=== PATIENT | male | born 1925 | race Caucasian/White ===

== ENCOUNTER 2017-01-06 12:43 | Inpatient (IN) | payer OTHER ==
--- NOTE | 2017-01-06 13:32 | PDOC ---
History of Present Illness - General Chief Complaint: Altered Mental Status Stated Complaint: AMS Time Seen by Provider: 01/06/17 13:28 - History of Present Illness Initial Comments: 01/06/17 13:29 Mr. Schaefer is an 89 yo male with a significant past medical history of afib on coumadin, pacemaker, DM who presents to the emergency department with a decline over the last month and a half from able to walk with a walker and baseline respond to unable to ambulate with cognitive disorientation. Daughter visited this AM and called PCP on noticing decline and was recommended to come in. Allergies: NKDA Past surgical history: hip replacement and pacemaker placement PMD - Paolo Card 01/06/17 17:40 Past History - Past Medical History Allergies/Adverse Reactions: Allergies Allergy/AdvReac Type Severity Reaction Status Date / Time No Known Allergies Allergy Verified 01/06/17 13:11 Home Medications: Ambulatory Orders Insulin NPH Hum/Reg Insulin Hm [Humulin 70-30 Vial] 26 unit SQ AM 04/09/12 Insulin NPH Hum/Reg Insulin Hm [Humulin 70-30 Vial] 20 unit SQ HS 05/12/12 Atorvastatin Calcium 10 mg PO HS 01/06/17 Glipizide [Glipizide Xl] 5 mg PO DAILY 01/06/17 Metoprolol Succinate [Toprol Xl -] 25 mg PO DAILY 01/06/17 Warfarin Na [Coumadin] 4 mg PO ASDIR 01/06/17 Warfarin Na [Coumadin] 6 mg PO ASDIR 01/06/17 Cardiac Disorders: Yes (A.FIB) Diabetes: Yes (IDDM) HTN: Yes Hypercholesterolemia: Yes Suicide Attempt (Hx): No - Surgical History Cardiac Surgery: Yes (pacemaker) Cholecystectomy: Yes - Psycho/Social/Smoking Cessation Hx Anxiety: No Suicidal Ideation: No Smoking Status: Yes Smoking History: Former smoker Have you smoked in the past 12 months: No Number of Cigarettes Smoked Daily: 0 Information on smoking cessation initiated: No Hx Alcohol Use: No Drug/Substance Use Hx: No Substance Use Type: None Hx Substance Use Treatment: No Review of Systems - Review of Systems Comments:: ROS limited by patient status. Per family cognitive function has declined severely. *Physical Exam - Vital Signs Last Vital Signs Temp Pulse Resp BP Pulse Ox 98.7 F 71 18 142/79 96 01/06/17 13:00 01/06/17 13:00 01/06/17 13:00 01/06/17 13:00 01/06/17 13:00 - Physical Exam Comments: 01/06/17 13:29 GENERAL: +Awake, oriented to self only, in no acute distress HEAD: No signs of trauma, normocephalic, atraumatic EYES: PERRLA, EOMI, sclera anicteric, conjunctiva clear ENT: Auricles normal inspection, hearing grossly normal, nares patent, oropharynx clear without exudates. Moist mucosa NECK: Normal ROM, supple, no lymphadenopathy, JVD, or masses LUNGS: No distress, speaks full sentences, clear to auscultation bilaterally HEART: Regular rate and rhythm, normal S1 and S2, no murmurs, rubs or gallops, peripheral pulses normal and equal bilaterally. ABDOMEN: Soft, nontender, normoactive bowel sounds. No guarding, no rebound. No masses EXTREMITIES: Normal inspection, Normal range of motion, no edema. No clubbing or cyanosis. NEUROLOGICAL: Limited by cooperation. Cranial nerves 2-12 appear intact. SKIN: Warm, Dry, normal turgor, no rashes or lesions noted. 01/06/17 17:42 ED Treatment Course - LABORATORY CBC & Chemistry Diagram: 01/06/17 14:00 01/06/17 14:00 Medical Decision Making - Medical Decision Making 01/06/17 16:53 Mr. Schaefer presents with worsening mental status. INR/PTT elevated as below. Acute bleed noted on CT in lateral ventricles. Neurosurgery consulted. Dr. Jones (neurosurgery) would like ICU follow-up. Dr. Bermeo ok with accepting patient in [facility] ICU. Will admit under Dr. Card. Laboratory Results - last 24 hr 01/06/17 01/06/17 01/06/17 14:00 14:00 14:50 WBC 8.1 RBC 5.49 Hgb 17.1 H D Hct 50.4 H MCV 91.8 MCH 31.2 MCHC 33.9 RDW 14.2 Plt Count 161 D MPV 10.8 Neutrophils % 63.0 D Lymphocytes % 23.4 D Monocytes % 11.3 H Eosinophils % 1.8 Basophils % 0.5 INR 2.67 H D PTT (Actin FS) 36.2 H Sodium 139 Potassium 4.5 Chloride 101 Carbon Dioxide 32 Anion Gap 6 L BUN 14 Creatinine 0.7 Creat Clearance w eGFR > 60 Random Glucose 200 H Calcium 9.0 Total Bilirubin 0.6 D AST 67 H D ALT 131 H D Alkaline Phosphatase 70 Creatine Kinase 97 Troponin I 0.02 B-Natriuretic Peptide 290.88 Total Protein 7.3 Albumin 3.4 Urine Color Urine Appearance Urine pH Urine Protein Urine Glucose (UA) Urine Ketones Urine Blood Urine Nitrite Urine Bilirubin Urine Urobilinogen Ur Leukocyte Esterase 01/06/17 15:00 WBC RBC Hgb Hct MCV MCH MCHC RDW Plt Count MPV Neutrophils % Lymphocytes % Monocytes % Eosinophils % Basophils % INR PTT (Actin FS) Sodium Potassium Chloride Carbon Dioxide Anion Gap BUN Creatinine Creat Clearance w eGFR Random Glucose Calcium Total Bilirubin AST ALT Alkaline Phosphatase Creatine Kinase Troponin I B-Natriuretic Peptide Total Protein Albumin Urine Color Yellow Urine Appearance Slcloudy Urine pH 5.0 Urine Protein Negative Urine Glucose (UA) 2+ H Urine Ketones Negative Urine Blood 1+ H Urine Nitrite Negative Urine Bilirubin Negative Urine Urobilinogen Negative Ur Leukocyte Esterase Negative 01/06/17 17:00 01/06/17 17:46 01/06/17 17:51 *DC/Admit/Observation/Transfer Diagnosis at time of Disposition: Brain bleed - Discharge Dispostion Admit: Yes - Referrals Referrals: Paolo Card MD [Primary Care Provider] - - Attestations Physician Attestion: 01/06/17 13:29 I, Dr. Jose Luis Madrigal, attest that this document has been prepared under my direction and personally reviewed by me in its entirety. I further attest, that it accurately reflects all work, treatment, procedures and medical decision -making performed by me.
[2017-01-06 15:07] LABS: BASOPHIL 0.5 % (0-2.0); EOSINOPHIL 1.8 % (0-4.5); MCH 31.2 pg (25.7-33.7); MCHC 33.9 g/dl (32.0-35.9); MEAN CELL VOLUME 91.8 fl (80-96); MEAN PLT VOLUME 10.8 fl (7.5-11.1); PLATELET COUNT 161 K/MM3 (134-434); RDW 14.2 % (11.9-15.9); WHITE BLOOD COUNT 8.1 K/mm3 (4.0-10.0)
[2017-01-06 15:12] LABS: ALBUMIN 3.4 g/dl (3.4-5.0); ANION GAP 6 (8-16); BILIRUBIN,TOTAL 0.6 mg/dL (0.2-1.0); CO2 32 mmol/L (21-32); CREATININE 0.7 mg/dL (0.7-1.3); GLUCOSE,RANDOM 200 mg/dL (74-106); SGPT/ALT 131 U/L (12-78); TOT PROT 7.3 g/dl (6.4-8.2)
[2017-01-06 15:15] LABS: ALK PHOS 70 U/L (45-117); TROPONIN I 0.02 ng/ml (0.00-0.05)
[2017-01-06 15:23] LABS: CPK 97 IU/L (39-308); SGOT/AST 67 U/L (15-37)
[2017-01-06 15:50] LABS: URINE APPEARANCE SLCLOUDY; URINE BILIRUBIN NEGATIVE (NEGATIVE); URINE BLOOD 1+ (NEGATIVE); URINE COLOR YELLOW; URINE GLUCOSE (UA) 2+ (NEGATIVE); URINE KETONE NEGATIVE (NEGATIVE); URINE LEUK ESTERASE NEGATIVE (NEGATIVE); URINE NITRITE NEGATIVE (NEGATIVE); URINE PROTEIN NEGATIVE (NEGATIVE); URINE UROBILINOGEN NEGATIVE mg/dL (0.2-1.0)
[2017-01-06 16:22] LABS: INR 2.67 (0.82-1.09)
[2017-01-06 16:25] LABS: ACTIVATED PTT 36.2 SECONDS (26.9-34.4)
[2017-01-06] MEDS ORDERED: PHYTONADIONE 10 MG/1 ML AMP IVPB ONE (16:51)
[2017-01-06 17:19] LABS: URINE HYALINE CAST 2 /lpf; URINE MUCUS MANY; URINE RBC 2 /hpf (0-3); URINE WBC 2 /hpf (3-5)
--- NOTE | 2017-01-06 17:24 | PDOC ---
Attending Attestation - Resident Resident Name: Jose Luis Madrigal - ED Attending Attestation I have performed the following: I have examined & evaluated the patient, The case was reviewed & discussed with the resident, I agree w/resident's findings & plan, Exceptions are as noted - HPI HPI: 01/06/17 17:19 89 M with h/o afib on coumadin, PPM, DM, HTN, HLD, presenting to ER with 1 month of worsening lethargy and confusion. Per family members, he is typically able to ambulate unassisted, is verbal and communicative. Over the past month, he has had a gradual decline, becoming more confused and now no longer able to ambulate. Today, pt had acute decline, becoming more disoriented and confused, no longer communicating. Family denies any F/C, no N/V/D. Pt has not complained of pain. Has not had any falls. - Physicial Exam PE: 01/06/17 17:38 "GENERAL: somnolent, arousable only to painful stimuli, in no acute distress HEAD: No signs of trauma EYES: PERRLA, EOMI, sclera anicteric, conjunctiva clear ENT: Auricles normal inspection, hearing grossly normal, nares patent, oropharynx clear without exudates. Moist mucosa NECK: Normal ROM, supple, no lymphadenopathy, JVD, or masses LUNGS: Breath sounds equal, clear to auscultation bilaterally. No wheezes, and no crackles HEART: Regular rate and rhythm, normal S1 and S2, no murmurs, rubs or gallops ABDOMEN: Soft, nontender, normoactive bowel sounds. No guarding, no rebound. No masses EXTREMITIES: Normal range of motion, no edema. No clubbing or cyanosis. No cords, erythema, or tenderness NEUROLOGICAL: Cranial nerves II through XII grossly intact. Moves all extremities SKIN: Warm, Dry, normal turgor, no rashes or lesions noted. " - Medical Decision Making 01/06/17 17:38 89 M with 1 month of progressively worsening mental status and confusion. Will evaluate for infectious process vs intracranial pathology. - Labs, trops, cultures - CXR, UA - CTH - Admit 01/06/17 17:39 CTH shows acute intraventricular blood and more prominent ventricles. Neurosurgeon subscription crew leader, Dr. Leo Cook, reviewed case with me. He recommends admission to ICU for close monitoring and neurosurgical intervention if needed. Discussed case with Dr. Polk, ICU attending subscription crew leader, who has accepted pt. <Julio C Gould - Last Filed: 01/06/17 17:36> - Medical Decision Making 01/06/17 17:30 Dr. Cadena (Neurosurgery subscription crew leader) paged via phone answering service at 4:50 PM Awaiting call back. Dr. Cadena responded to the page and the patient's case was discussed at 5:[address] Cadena called and planned to admit patient to [facility] ICU. Call placed to Dr. Polk at 5:29 PM Awaiting call back. Dr. Polk responded to the page and the patient's case was discussed at 5:[address] Card via phone answering service at 5:52 PM Patient's case was discussed. Documentation prepared by Arielle Swann, acting as medical services coordinator for Julio C Gould MD <Arielle Swann - Last Filed: 01/06/17 17:53>
[2017-01-06] MEDS ORDERED: PHYTONADIONE 10 MG/1 ML AMP ONE (17:32)
--- NOTE | 2017-01-06 18:50 | EKG ---
Test Reason : Blood Pressure : / mmHG Vent. Rate : 072 BPM Atrial Rate : 072 BPM P-R Int : 204 ms QRS Dur : 144 ms QT Int : 452 ms P-R-T Axes : 072 -80 092 degrees QTc Int : 494 ms Atrial-sensed ventricular-paced rhythm ABNORMAL ECG WHEN COMPARED WITH ECG OF 14-AUG-2012 10:23, VENT. RATE HAS INCREASED BY 10 BPM Confirmed by AEC BOYKIN MD ([id number]) on 01/06/2017 6:50:17 PM Referred By: Confirmed By:ACE BOYKIN MD
--- NOTE | 2017-01-06 21:35 | CON.NEURO ---
Consult Consult Specialty:: NEUROLOGY-WINSOME SCHMITT Reason for Consultation:: Intraventricular hemorrhage - History of Present Illness History of Present Illness: 89 M with h/o afib on coumadin, PPM, DM, HTN, HLD, presenting to ER with 1 month of worsening lethargy and confusion. Per family members(daughter and son) his last INR was performed 7 weeks ago, x 2 years at least he has had gradual cognitive decline, several weeks ago he fell(not taken to ER and for last 2 weeks he has had a rapid decline in his mentation- becomes confused, he was able to ambulate with a walker, was verbal and communicative until 2 weeks ago.Family denies any F/C, no N/V/D. Pt has not complained of pain. Has not had any falls. INR noted to be 2.6, pt. has been given Vit K and is now being given FFP. He is unable to relate hx. as he is, as per daughter somnolent. - History Source History Provided By: Family Member - Past Medical History MASSEUR/MASSEUSE: Yes: Dementia - Alcohol/Substance Use Hx Alcohol Use: No - Smoking History Smoking history: Former smoker Have you smoked in the past 12 months: No Aproximately how many cigarettes per day: 0 Home Medications - Allergies Allergies/Adverse Reactions: Allergies Allergy/AdvReac Type Severity Reaction Status Date / Time No Known Allergies Allergy Verified 01/06/17 13:11 - Home Medications Home Medications: Ambulatory Orders Insulin NPH Hum/Reg Insulin Hm [Humulin 70-30 Vial] 26 unit SQ AM 04/09/12 Insulin NPH Hum/Reg Insulin Hm [Humulin 70-30 Vial] 20 unit SQ HS 05/12/12 Atorvastatin Calcium 10 mg PO HS 01/06/17 Glipizide [Glipizide Xl] 5 mg PO DAILY 01/06/17 Metoprolol Succinate [Toprol Xl -] 25 mg PO DAILY 01/06/17 Warfarin Na [Coumadin] 4 mg PO ASDIR 01/06/17 Warfarin Na [Coumadin] 6 mg PO ASDIR 01/06/17 Physical Exam-Neuro Vital Signs: Vital Signs Temperature 97.7 F 01/06/17 20:09 Pulse Rate 73 01/06/17 20:09 Respiratory Rate 17 01/06/17 20:09 Blood Pressure 121/84 01/06/17 17:23 O2 Sat by Pulse Oximetry (%) 97 01/06/17 20:09 Labs: INR, PTT INR 2.67 (0.82-1.09) H D 01/06/17 14:50 - Neuro Exam Level Of Consciousness: No: Stuporous (Pt. is somnolent, easily arousable to loud voice, follows one step commands but unable to sustain attention.) Eyes: Yes: ALVARO Speech: Garbled (Unclear whether dysphasic or not) Mini Mental Exam: Inattentive, somnolent. Cranial Nerves II-XII Intact: Yes (face symmetric, intact facial sensation+gag) Gag: Present DTR's: 0 Left Achilles, 0 Right Achilles, 1+ Left Bicep, 1+ Right Bicep, 1+ Left Tricep, 1+ Right Tricep, 1+ Left Brachioradialis, 1+ Right Brachioradialis Babinski: Present (right upgoing toe, left is down going) Response to pain prick: Normal (With draws UEs more than lower ext. to pain) Imaging - Results X-ray: Report Reviewed (Chronic microvascular ischemic changes, old left cerebellar infarct and small amount of blood in post. horns of both occipoital horns. To my review ventricles appear larger than what can be accounted for by the amount of atrophy seen.) Assessment/Plan Pt. on A/C, INR of 2.6 presenting with worsened mentation for at least 2 weeks, has intraventricular hemorrhage layered in post. horns of lat. ventricles without evidence of in. The hge does not appear to be causing increased intraventricular pressure as the vents. are large to start with. My sense is likely cause of worsening confusion/mental status deterioration is possibly intravent. hemorrhage. There is also a possibility that he has preexisting hydrocephalus as vents. appear larger compared to CT head in 2013. 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 Suggest: 1) FFP as planned. would kep HOB at 30 degrees. NPO, I/V hydration. 2) Repeat CT head at [facility] tomorrow to see whether there are signs of CSF drainage obstruction/hydrocephalus. 3) Monitor mental status. 4) I do not see indication for neurosurgical intervention. Thank you, Stan Mackenzie [phone]
[2017-01-06 21:51] VITALS: BMI 29.3
[2017-01-06] MEDS ORDERED: PNEUMOC 13-VAL CONJ-DIP CRM/PF 0.5 ML DISP.SYRIN IM ONE (21:51)
--- NOTE | 2017-01-06 22:09 | CONSULT ---
Consult - text type - Consultation Consultation Note: PULM/CCM Pt seen and examined in the ICU CC; AMS Hx obtained from medical record., pt significantly altered. HPI: Briefly Mr Olive is an 89 M with h/o afib on coumadin, PPM, DM, HTN, HLD , ? dementia now presenting to ER with 1 month of worsening lethargy and confusion found to have intraventricular hemorrhage on CT. Family relates pt has had slow cognitive decline over last two years but precipitously over last two weeks. Pt had fall several weeks ago, did not seek treatment. Worse in following weeks, over last two weeks stopped communicating with family and no longer walking. Last INR was performed 7 weeks ago, Family denies any acute complaints from patient, no Recent falls, no n/v/d, no fever. In ED pt was afebrile, normotensive, HR and RR wnl. Labs notable for INR 2.6. CT head revealed significant atrophy, and acute blood in ventricles. Neurolgoy and neurosurgery contacted, transfered pt to ICU. 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 Previously walking with walker and communicating Ambulatory Orders Insulin NPH Hum/Reg Insulin Hm [Humulin 70-30 Vial] 26 unit SQ AM 04/09/12 Insulin NPH Hum/Reg Insulin Hm [Humulin 70-30 Vial] 20 unit SQ HS 05/12/12 Atorvastatin Calcium 10 mg PO HS 01/06/17 Glipizide [Glipizide Xl] 5 mg PO DAILY 01/06/17 Metoprolol Succinate [Toprol Xl -] 25 mg PO DAILY 01/06/17 Warfarin Na [Coumadin] 4 mg PO ASDIR 01/06/17 Warfarin Na [Coumadin] 6 mg PO ASDIR 01/06/17 Active Medications Chlorhexidine Gluconate (Hibiclens For Decolonization -) 1 applic TP HS PAULINA Mupirocin (Bactroban Ointment (For Decolonization) -) 1 applic NS BID PAULINA Stop: 01/11/17 21:59 Pneumococcal 13-Valent Conj Vacc (Prevnar 13 Syringe -) 0.5 ml IM .ONCE ONE Stop: 01/06/17 21:52 Vital Signs Temp 98.2 F 01/06/17 22:05 Pulse 63 01/06/17 22:05 Resp 11 L 08/28/17 22:05 BP 146/62 01/06/17 22:05 Pulse Ox 94 L 01/06/17 21:33 Intake & Output 01/05/17 01/06/17 01/06/17 23:59 11:59 23:59 Weight 77.5 kg Other: Voiding Method Diaper Height 5 ft 4 in Body Mass Index (BMI) 29.3 Weight Measurement Method [facility] Measurement Method Estimated by Staff CT head reviewed CXR: clear, no acute pathology EKG: Paced at 60bpm PE: NEURO: stuporous, opens eyes to noxious stimuli, does not attend, non focal exam , withdrawal bilaterally HEENT: PERRL at 3mm, atraumatic, normocephalic PULM: clear, no wheezes, no distress CV: regular at 60, do not appreciate mumur ABD: Soft, +BS EXT: pulse wnl A/ 89 yo old man with acute on chronic cognitive decline found to have intraventricular hemorrhage, possibly normal pressure hydrocephalus -correct INR, Vit K given, FFP ordered -NPO -repeat INR and CT head tomorrow -will need oral access as appears high risk for aspiration, and will need to restart home meds -overnight observation in ICU -neuro/surg following - Prophy: SCD, no indication for GI Sahil Patel ACNp [id number]
[2017-01-06] MEDS: MUPIROCIN 2% TOPICAL OINTMENT FOR DECOLONIZATION NS SCH (22:21)
[2017-01-06] MEDS: CHLORHEXIDINE GLUCONATE 4% CLEANSER FOR DECOLONIZATION TP SCH (22:21)
[2017-01-07] MEDS: DEXTROSE 5%-0.45% SALINE 1,000 ML IV SCH ×2 (04:00→15:00)
[2017-01-07] MEDS: INSULIN SLIDING SCALE (NOVOLOG) 1 VIAL SQ SCH ×3 (06:45→18:00)
[2017-01-07 07:08] LABS: INR 1.5 (0.82-1.09); PROTHROMBIN TIME (PATIENT) 16.6 SEC (9.98-11.88)
[2017-01-07 07:25] LABS: MAGNESIUM 2.1 mg/dL (1.8-2.4); PHOSPHOROUS 2.7 mg/dL (2.5-4.9)
[2017-01-07] MEDS: MUPIROCIN 2% TOPICAL OINTMENT FOR DECOLONIZATION NS SCH ×2 (11:00→22:38)
--- NOTE | 2017-01-07 12:33 | PN ---
Teaching Attending Note Name of Resident: Chava Maradiaga ATTENDING PHYSICIAN STATEMENT I saw and evaluated the patient. I reviewed the resident's note and discussed the case with the resident. I agree with the resident's findings and plan as documented. SUBJECTIVE: Pt seen and examined in the ICU. Lethargic, repeat CT head unchanged from yesterday. OBJECTIVE: Last Vital Signs Temp Pulse Resp BP Pulse Ox 98.7 F 67 16 150/56 97 01/07/17 10:34 01/07/17 10:34 01/07/17 10:34 01/07/17 10:34 01/07/17 03:07 Intake & Output 01/04/17 01/05/17 01/06/17 01/07/17 23:59 23:59 23:59 23:59 Intake Total 372 Balance 372 Weight 170 lb 13.732 oz 173 lb 3.2 oz Gen: lethargic but in NAD Heart: RRR Lung: decreased breath sounds at the bases Abd: soft, nontender Ext: no edema CBC, BMP 01/06/17 14:00 01/06/17 14:00 Active Medications Chlorhexidine Gluconate (Hibiclens For Decolonization -) 1 applic TP HS [facility] Last Admin: 01/06/17 22:21 Dose: 1 applic Dextrose/Sodium Chloride (D5-1/2ns -) 1,000 mls @ 75 mls/hr IV ASDIR [facility] Last Admin: 01/07/17 04:00 Dose: 75 mls/hr Insulin Aspart (Novolog Vial Sliding Scale -) 1 vial SQ Q6HPO [facility] PRN Reason: Protocol Last Admin: 01/07/17 06:45 Dose: Not Given Mupirocin (Bactroban Ointment (For Decolonization) -) 1 applic NS BID [facility] Stop: 01/11/17 21:59 Last Admin: 01/06/17 22:21 Dose: 1 applic ASSESSMENT AND PLAN: Intracranial Hemorrhage Hydrocephalus Altered Mental Status Atrial Fibrillation s/p PPM HTN DM Hyperlipidemia - transfuse 1 unit FFP - monitor CBC, coags - neurosurgery evaluation - aspiration precautions - NPO due to mental status - IVF - DVT prophylaxis with SCDs - can monitor on floor if no surgical intervention planned critical care time spent in reviewing chart, evaluating patient and formulating plan 35 min
--- NOTE | 2017-01-07 12:41 | PN ---
Physical Exam: SUBJECTIVE: Patient seen and examined. Minimally responsive to pain OBJECTIVE: Vital Signs Period Temp Pulse Resp BP Sys/Stern Pulse Ox Last 24 Hr 97.7 F-98.8 F 60-73 11-17 113-153/51-74 94-97 NEURO: minimally responsive to pain, opens eyes HEENT: PERRL at 3mm, atraumatic, normocephalic PULM: clear, no wheezes, no distress CV: RRR, S1 and S2 audible ABD: Soft, non-tender, +BS EXT: pulse wnl Laboratory Results - last 24 hr 01/06/17 01/06/17 01/07/17 18:00 22:24 05:30 INR 1.50 H D POC Glucometer 181.48669 Phosphorus Magnesium Blood Type A POSITIVE Antibody Screen Negative 01/07/17 01/07/17 05:30 06:43 INR POC Glucometer 183.62965 Phosphorus 2.7 D Magnesium 2.1 Blood Type Antibody Screen Active Medications Generic Name Dose Route Start Last Admin Trade Name Freq PRN Reason Stop Dose Admin Chlorhexidine Gluconate 1 applic 01/06/17 22:00 01/06/17 22:21 Hibiclens For Decolonization - TP 1 applic HS PAULINA Administration Dextrose/Sodium Chloride 1,000 mls @ 75 mls/hr 01/07/17 02:30 01/07/17 04:00 D5-1/2ns - IV 75 mls/hr ASDIR PAULINA Administration Insulin Aspart 1 vial 01/07/17 06:00 01/07/17 06:45 Novolog Vial Sliding Scale - SQ Not Given Q6HPO [facility] Protocol Mupirocin 1 applic 01/06/17 22:00 01/06/17 22:21 Bactroban Ointment (For Decolonization) - NS 01/11/17 21:59 1 applic BID PAULINA Administration ASSESSMENT/PLAN: A/ 89 yo old man with acute on chronic cognitive decline found to have intraventricular hemorrhage, possibly normal pressure hydrocephalus Neuro: - Neurosurgical consult pending. Possible surgical treatment. -NPO Hematology - One unit of FFP ordered - Monitor CBC and coags - Aspiration precaution Cardiovascular - IVF: NS Prophy: - DVT prophylaxis with SCDs can monitor on floor if no surgical intervention planned Visit type - Emergency Visit Emergency Visit: No - New Patient This patient is new to me today: Yes Date on this admission: 01/07/17 - Critical Care Critical Care patient: Yes Total Critical Care Time (in minutes): 30 Critical Care Statement: The care of this patient involved high complexity decision making to prevent further life threatening deterioration of the patient 's condition and/or to evaluate & treat vital organ system(s) failure or risk of failure.
--- NOTE | 2017-01-07 12:45 | CONSULT ---
Admitting History and Physical - Primary Care Physician PCP: Paolo Card - Admission History of Present Illness: 89 yo old man with acute on chronic cognitive decline found to have intraventricular hemorrhage, possibly normal pressure hydrocephalus Per Neurology: "Chronic microvascular ischemic changes, old left cerebellar infarct and small amount of blood in post. horns of both occipital horns.....ventricles appear larger than what can be accounted for by the amount of atrophy seen" Pt's daughter reports progressive confusion and memory deficits, with initiation of impairment in speech/language function for about 2 months. Swallowing and appetite were always good. Pt keeps eyes closed as he is visually impaired,per daughter. 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 - Smoking History Smoking history: Former smoker Have you smoked in the past 12 months: No Aproximately how many cigarettes per day: 0 - Alcohol/Substance Use Hx Alcohol Use: No History - Admission Reason For Visit: BRAIN BLEED - Diagnostics X-ray: Report Reviewed CT Scan: Report Reviewed - General Mental Status: Confused Attention: Distractible Ability to Follow Directions: Poor Head/Neck Control: Needs Assist - Hearing Hearing: Functional, Impaired Hearing Aide: No With Patient: No Speech Evaluation - Communication Primary Language: [place] Communication: Yes: Aphasia (Aphasia vs languiage of confusion. Unintelligible words interspresed in simple phrases), Language Barrier Oral Expression Ability: Yes: Moderate Impairment - Speech Production Able to Make Needs Known: Yes: Moderately Impaired Intelligibility: Yes: Mildly Impaired, Moderately Impaired - Speech Characteristics Voice Loudness: Normal Voice Pitch: Yes: Normal Voice Phonatory-based Quality: Yes: Normal Speech Pattern: Impaired Speech Clarity: < 25% Nasal Resonance: Normal - Language/Auditory Comprehension Observation: Able to respond to yes/no queries: No, Comprehends Conversational Speech: Yes (some simple appropriat responses regarding food and hunger), Benefits from Slow Speech: Yes, Benefits from Repetiton: Yes, Benefits from Increased Volume of Speech: Yes - Language/Verbal Expression Aphasia: Yes: Paraphrasic Errors, Neologisms Able to Respond to Simple Queries: Yes: Moderately Impaired - Swallow Evaluation/Bedside Assessment Current Nutritional Intake: NPO Oral Secretions: Yes: WFL Dentition: Yes: Dental Appliance Upper, Dental Appliance Lower Facial Symmetry at Rest: Symmetrical Lingual Movement: Symmetric Lingual Speed of Movement: Normal Lingual Movement Strgth Against Opposition: Normal Lingual Movement Characteristics: Normal Velopharyngeal Movement: Normal Laryngeal Movement: Labored,delay initiation Rate of Intake: WFL Bolus Size: WFL Labial Seal: WFL (uses dentures, not lips, to strip spoon of food) Oral Prep Time: WFL A-P Transit: WFL Pocketing: None Timing of Swallow: Delayed Coughing/Throat Clear: No Change in Voice: No Recommendations - Speech Evaluation, Impression/Plan Impression: Overtly, delayed but fair swallowing function. Ris of aspiration with thin liquids due to delayed swallow onset at this time, which may improve. Produces some social speech/verbalizations with some appropriate phrases interspersed with jargon. Eg "i had enough" "dinner" etc - Dysphagia Impressions/Plan Swallowing Skills: Impaired Dysphagia Impressions: Moderate Impairment, Risk of Aspiration, Ongoing Evaluation *Silent aspiration: cannot be R/O at bedside Dysphagia Treatment Plan: Chin Tuck/Down, Safe Rate, 1/2 tsp. at a time, Elevate HOB during feed, Other (feed slowly, observe for sallow reflex before next bite.) Recommendations: Modified Barium Swallow (to r/o aspiration, advance diet wit safety), Other - Recommendations Diet Consistency: Dysphagia Pureed, Other (monitor for congestion, fever, cough, throat clearing, vocal wetness.) Medication Administration: Crushed with applesauce Liquids: Honey Thick Supplement: Magic Cup
[2017-01-07] MEDS ORDERED: INSULIN (NOVOLOG) ASPART 100 UNITS/ML 10ML VIAL ONE ×2 (13:08→17:27)
--- NOTE | 2017-01-07 13:16 | CONSULT ---
Consult - text type - Consultation Consultation Note: Asked to see this 89 year old gentleman with altered mental status. Patient is lethargic and family was not immediately available. Primary information is from the medical record, review of the imaging studies and discussion with the nursing/ER staff. My understanding is that this patient has had cognitive decline over the past two years with difficulty in ambulation requiring a walker. He has atrial fibrilation and a pacemaker and maintained on Coumadin anticoagulation therapy. 1-2 months ago, he sustained a minor head injury and has had progressive cognitive decline since this time.
--- NOTE | 2017-01-07 13:43 | CONSULT ---
Consult - text type - Consultation Consultation Note: Asked to see this 89 year old gentleman with altered mental status. Patient has a history of atrial fibrillation and is maintained on Coumadin therapy and has a pacemaker. He is lethargic and his family was not available. Primary information for this consultation is from the medical record, nursing staff and ER physician. The patient has a history of cognitive decline over the past 2 years as well as gait difficulty requiring the use of a walker. He has no known urinary difficulties (incontinence). He suffered a minor head injury 1-2 months ago and did not seek medical attention. Since this time, his cognitive decline has significantly progressed. He presented to the [facility] Emergency Room yesterday and Head CT demonstrated ventriculomegally with some atrophy and acute intraventricular blood layering in the occipital horns of the lateral ventricles. The patient was admitted to the ICU and his anticoagulation is being reversed. Today, the patient is more somnolent than at admission. Repeat Head CT suggests mild progression of the hydrocephalus. Although the fourth ventricle is enlarged , it is not quite as large as the lateral and third ventricles raising the possibility of aqueductal stenosis or obstruction. MRI is not possible due to his pacemaker. There is some low density tissue surrounding the ventricles, however it is not clear whethere this is secondary to trans-ependymal edema versus due to vascular disease. Review of CT of the Head from 2012 and 2010 suggest progressive hydrocephalus/ ventriculomegally with enlargement of the temporal horns. It does not appear possible to make a definitive diagnosis of Normal Pressure Hydrocephalus, obstructive hydrocephalus or communicating hydrocephalus at this time. Indeed, this patient has elements of all three conditions and this may be a multifactorial process. CSF diversion with EVD or SPECIAL EDUCATION ASSOCIATE shunting may be considered, but carries an elevated risk of infection and subdural hematoma development due to this patient 's medical state and need for anticoagulation. I agree with Dr. Mackenzie that if it is possible to identify an alternate etiology for his cognitive decline and to correct his recent decline without Neurosurgical intervention, that it might be preferable for this patient. If no other etiology for the cognitive decline can be identified or treated, CSF diversion may have a role. One of the primary risks would be the risk for thromboembolic events associated with cessation of his anticoagulatio. On the other hand, since his coagulation profile has been reversed, this is not currently an additional risk for surgery. SPECIAL EDUCATION ASSOCIATE shunting with an adjustable pressure valve set to a high pressure setting might be considered if the cognitive decline cannot be otherwise reversed. I am happy to discuss this case further with other caregivers or his family in the event that no other treatment strategy for the cognitive decline is effective.
--- NOTE | 2017-01-07 16:01 | HP ---
Admitting History and Physical - Primary Care Physician PCP: Paolo Card - Admission Chief Complaint: Change in mental status History of Present Illness: 89 y/o diabetic on Insulin, AFIB, PPM, Hypertension, hyperlipidemia who has had cognitive impairment over the last one year or so and lately over the last six months has shown impairment in ambulation requiring a wheelchair. About 4 to 6 weeks ago he fell at home but there was no LOC but since then progressively worse mentally with loss of memory and disorientation . Three weeks ago was aadvised to come to ED but family was not sure that it would help in anyway and did not follow thro'. But managing him became very difficult and he was brought to ER. A CT scan of brain was performed which showed small amount of blood layering in the ventricles and hydrocephalus which according to review of his past scan shows progression and also microvascular disease. He is admitted for further management. History Source: Family Member, Medical Record Limitations to Obtaining History: Clinical Condition, Dementia, Other (very lethargic) - Past Medical History GENERAL DOC: Yes: Dementia, Syncope Cardiovascular: Yes: AFIB, HTN, Hyperlipdemia Musculoskeletal: Yes: Osteoarthritis Endocrine: Yes: Diabetes Mellitus - Past Surgical History Past Surgical History: Yes: Joint Replacement, Permanent Pacemaker - Smoking History Smoking history: Former smoker Have you smoked in the past 12 months: No Aproximately how many cigarettes per day: 0 - Alcohol/Substance Use Hx Alcohol Use: No History of Substance Use: reports: None - Social History Usual Living Arrangement: Yes: With Spouse ADL: Family Assistance History of Recent Travel: No Home Medications - Allergies Allergies/Adverse Reactions: Allergies Allergy/AdvReac Type Severity Reaction Status Date / Time No Known Allergies Allergy Verified 01/06/17 13:11 - Home Medications Home Medications: Ambulatory Orders Insulin NPH Hum/Reg Insulin Hm [Humulin 70-30 Vial] 26 unit SQ AM 04/09/12 Insulin NPH Hum/Reg Insulin Hm [Humulin 70-30 Vial] 20 unit SQ HS 05/12/12 Atorvastatin Calcium 10 mg PO HS 01/06/17 Glipizide [Glipizide Xl] 5 mg PO DAILY 01/06/17 Metoprolol Succinate [Toprol Xl -] 25 mg PO DAILY 01/06/17 Warfarin Na [Coumadin] 4 mg PO ASDIR 01/06/17 Warfarin Na [Coumadin] 6 mg PO ASDIR 01/06/17 Review of Systems - Review of Systems Constitutional: reports: Lethargy Eyes: reports: Other (blindness due to diabetic retinopathy) HENT: reports: No Symptoms Neck: reports: No Symptoms Cardiovascular: reports: No Symptoms Respiratory: reports: No Symptoms Gastrointestinal: reports: No Symptoms Genitourinary: reports: No Symptoms Breasts: reports: No Symptoms Reported Musculoskeletal: reports: No Symptoms Integumentary: reports: No Symptoms Neurological: reports: Confusion, Incoordination, Parasthesia, Unsteady Gait, Weakness Endocrine: reports: Other (known diabetic for many years with diabetic retinopathy) Psychiatric: reports: No Symptoms Physical Examination Vital Signs: Vital Signs Temperature 99.0 F 01/07/17 14:00 Pulse Rate 70 01/07/17 14:00 Respiratory Rate 16 01/07/17 14:00 Blood Pressure 117/56 01/07/17 14:00 O2 Sat by Pulse Oximetry (%) 97 01/07/17 09:00 Constitutional: Yes: No Distress, Other (lethargic, with eyes closed) Eyes: Yes: Other (eyes are closed , on opening sclera clear) HENT: Yes: WNL Neck: Yes: WNL Cardiovascular: Yes: Regular Rate and Rhythm, S1, S2 Respiratory: Yes: WNL, Regular, CTA Bilaterally Gastrointestinal: Yes: Normal Bowel Sounds, Soft Renal/: Yes: Incontinence Edema: No Peripheral Pulses WNL: No Peripheral Pulses: Left Radial: 3+, Right Radial: 3+, Left Doralis Pedis: 0, Right Dorsalis Pedis: 0, Left Femoral: 2+, Right Femoral: 2+ Neurological: Yes: Aphasia, Lethargy ...Motor Strength: WNL Imaging - Results Chest X-ray: Report Reviewed, Image Reviewed Cat Scan: Report Reviewed, Image Reviewed EKG: Report Reviewed, Image Reviewed Problem List - Problems (1) Brain bleed Assessment/Plan: Intracerebral bleed whivh accumulating in the ventricle with posterior layering, small amount. Repeat CT today to determine progression Code(s): I61.9 - NONTRAUMATIC INTRACEREBRAL HEMORRHAGE, UNSPECIFIED (2) Acute spontaneous intraventricular hemorrhage due to cerebral aneurysm Code(s): I61.5 - NONTRAUMATIC INTRACEREBRAL HEMORRHAGE, INTRAVENTRICULAR I67.1 - CEREBRAL ANEURYSM, NONRUPTURED (3) Afib Assessment/Plan: AFIB with ventricular pacing Code(s): I48.91 - UNSPECIFIED ATRIAL FIBRILLATION (4) Diabetes, type 1.5, uncontrolled, managed as type 1 Assessment/Plan: On IV fluid for hydration, Insulin coverage with sliding scale. Code(s): E10.65 - TYPE 1 DIABETES MELLITUS WITH HYPERGLYCEMIA (5) Retinopathy due to secondary diabetes Code(s): E13.319 - OTH DIABETES W UNSP DIABETIC RETINOPATHY W/O MACULAR EDEMA (6) Hydrocephalus due to abnormality of flow cerebrospinal fluid Assessment/Plan: compared to past CT scans hycephalus has progressed. Dr. Bowers assessment noted, may require DIRECTOR SOCIAL SERVICE shunt if other etiologies of mental changes not found. Code(s): Q03.8 - OTHER CONGENITAL HYDROCEPHALUS Assessment/Plan Discussed with family at [facility] , and possibility of requiring a DIRECTOR SOCIAL SERVICE shunt. At present will continue to monitor . Anticoagulation has been reversed with FFP and Vit.K
[2017-01-07] MEDS: CHLORHEXIDINE GLUCONATE 4% CLEANSER FOR DECOLONIZATION TP SCH (22:37)
[2017-01-08] MEDS: INSULIN SLIDING SCALE (NOVOLOG) 1 VIAL SQ SCH ×5 (00:37→23:09)
[2017-01-08] MEDS: DEXTROSE 5%-0.45% SALINE 1,000 ML IV SCH ×3 (06:19→18:35)
[2017-01-08 06:43] LABS: MCH 31.6 pg (25.7-33.7); MCHC 34.4 g/dl (32.0-35.9); MEAN PLT VOLUME 10.7 fl (7.5-11.1); PLATELET COUNT 140 K/MM3 (134-434); RDW 14.2 % (11.9-15.9); WHITE BLOOD COUNT 9.4 K/mm3 (4.0-10.0)
[2017-01-08 06:51] LABS: INR 1.19 (0.82-1.09); PROTHROMBIN TIME (PATIENT) 13.1 SEC (9.98-11.88)
[2017-01-08 06:53] LABS: ACTIVATED PTT 31.2 SECONDS (26.9-34.4)
[2017-01-08 06:54] LABS: ALBUMIN 3.4 g/dl (3.4-5.0); ANION GAP 8 (8-16); CALCIUM 8.4 mg/dL (8.5-10.1); CO2 32 mmol/L (21-32); CREATININE 0.6 mg/dL (0.7-1.3); GLUCOSE,RANDOM 231 mg/dL (74-106); SGOT/AST 27 U/L (15-37); SGPT/ALT 71 U/L (12-78)
[2017-01-08 06:55] LABS: ALK PHOS 75 U/L (45-117); BILIRUBIN,TOTAL 1.5 mg/dL (0.2-1.0); TOT PROT 6.9 g/dl (6.4-8.2)
[2017-01-08] MEDS: MUPIROCIN 2% TOPICAL OINTMENT FOR DECOLONIZATION NS SCH (09:29)
--- NOTE | 2017-01-08 09:31 | CON.CARD ---
Consult Consult Specialty:: Cardiology Reason for Consultation:: cva - History of Present Illness History of Present Illness: Mr. Schaefer is an 89 yo male with a significant past medical history of afib on coumadin, pacemaker, DM who presents to the emergency department with a decline over the last month and a half from able to walk with a walker and baseline respond to unable to ambulate with cognitive disorientation. Daughter visited this AM and called PCP on noticing decline and was recommended to come in. 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 Cardio/Vascular: Yes: AFIB, HTN, Hyperlipdemia Musculoskeletal: Yes: Osteoarthritis Endocrine: Yes: Diabetes Mellitus - Past Surgical History Past Surgical History: Yes: Joint Replacement, Permanent Pacemaker - Alcohol/Substance Use Hx Alcohol Use: No History of Substance Use: reports: None - Smoking History Smoking history: Former smoker Have you smoked in the past 12 months: No Aproximately how many cigarettes per day: 0 - Social History ADL: Family Assistance History of Recent Travel: No Home Medications - Allergies Allergies/Adverse Reactions: Allergies Allergy/AdvReac Type Severity Reaction Status Date / Time No Known Allergies Allergy Verified 01/06/17 13:11 - Home Medications Home Medications: Ambulatory Orders Insulin NPH Hum/Reg Insulin Hm [Humulin 70-30 Vial] 26 unit SQ AM 04/09/12 Insulin NPH Hum/Reg Insulin Hm [Humulin 70-30 Vial] 20 unit SQ HS 05/12/12 Atorvastatin Calcium 10 mg PO HS 01/06/17 Glipizide [Glipizide Xl] 5 mg PO DAILY 01/06/17 Metoprolol Succinate [Toprol Xl -] 25 mg PO DAILY 01/06/17 Warfarin Na [Coumadin] 4 mg PO ASDIR 01/06/17 Warfarin Na [Coumadin] 6 mg PO ASDIR 01/06/17 Review of Systems - Review of Systems Constitutional: reports: No Symptoms Eyes: reports: No Symptoms HENT: reports: No Symptoms Neck: reports: No Symptoms Cardiovascular: reports: No Symptoms Gastrointestinal: reports: No Symptoms Genitourinary: reports: No Symptoms Breasts: reports: No Symptoms Reported Musculoskeletal: reports: No Symptoms Integumentary: reports: No Symptoms Neurological: reports: Confusion Endocrine: reports: No Symptoms Hematology/Lymphatic: reports: No Symptoms Psychiatric: reports: No Symptoms Vital Signs: Vital Signs Temperature 98.8 F 01/08/17 06:00 Pulse Rate 72 01/08/17 08:00 Respiratory Rate 16 01/08/17 08:00 Blood Pressure 112/39 01/08/17 08:00 O2 Sat by Pulse Oximetry (%) 99 01/08/17 08:07 Constitutional: Yes: Well Nourished, No Distress, Calm Eyes: Yes: WNL, Conjunctiva Clear, EOM Intact HENT: Yes: WNL, Atraumatic, Normocephalic Neck: Yes: WNL, Supple, Trachea Midline Respiratory: Yes: WNL, Regular, CTA Bilaterally Gastrointestinal: Yes: WNL, Normal Bowel Sounds Renal/: Yes: WNL Cardiovascular: Yes: WNL, Regular Rate and Rhythm Musculoskeletal: Yes: WNL Extremities: Yes: WNL Integumentary: Yes: WNL Neurological: Yes: Lethargy ...Motor Strength: WNL Psychiatric: Yes: WNL, Alert, Oriented - Other Data Labs, Other Data: CBC, BMP 01/08/17 05:20 01/08/17 05:20 INR, PTT INR 1.19 (0.82-1.09) H 01/08/17 05:20 Laboratory Tests 01/06/17 01/06/17 01/06/17 14:00 14:00 14:50 WBC 8.1 RBC 5.49 Hgb 17.1 H D Hct 50.4 H MCV 91.8 MCH 31.2 MCHC 33.9 RDW 14.2 Plt Count 161 D MPV 10.8 Neutrophils % 63.0 D Lymphocytes % 23.4 D Monocytes % 11.3 H Eosinophils % 1.8 Basophils % 0.5 INR 2.67 H D PTT (Actin FS) 36.2 H Sodium 139 Potassium 4.5 Chloride 101 Carbon Dioxide 32 Anion Gap 6 L BUN 14 Creatinine 0.7 Creat Clearance w eGFR > 60 POC Glucometer Random Glucose 200 H Calcium 9.0 Phosphorus Magnesium Total Bilirubin 0.6 D AST 67 H D ALT 131 H D Alkaline Phosphatase 70 Creatine Kinase 97 Troponin I 0.02 B-Natriuretic Peptide 290.88 Total Protein 7.3 Albumin 3.4 Urine Color Urine Appearance Urine pH Ur Specific Adams Urine Protein Urine Glucose (UA) Urine Ketones Urine Blood Urine Nitrite Urine Bilirubin Urine Urobilinogen Ur Leukocyte Esterase Urine RBC Urine WBC Ur Epithelial Cells Hyaline Casts Urine Mucus Blood Type Antibody Screen 01/06/17 01/06/17 01/06/17 15:00 18:00 22:24 WBC RBC Hgb Hct MCV MCH MCHC RDW Plt Count MPV Neutrophils % Lymphocytes % Monocytes % Eosinophils % Basophils % INR PTT (Actin FS) Sodium Potassium Chloride Carbon Dioxide Anion Gap BUN Creatinine Creat Clearance w eGFR POC Glucometer [phone] Random Glucose Calcium Phosphorus Magnesium Total Bilirubin AST ALT Alkaline Phosphatase Creatine Kinase Troponin I B-Natriuretic Peptide Total Protein Albumin Urine Color Yellow Urine Appearance Slcloudy Urine pH 5.0 Ur Specific Adams 1.020 Urine Protein Negative Urine Glucose (UA) 2+ H Urine Ketones Negative Urine Blood 1+ H Urine Nitrite Negative Urine Bilirubin Negative Urine Urobilinogen Negative Ur Leukocyte Esterase Negative Urine RBC 2 Urine WBC 2 Ur Epithelial Cells Rare Hyaline Casts 2 Urine Mucus Many Blood Type A POSITIVE Antibody Screen Negative 01/07/17 01/07/17 01/07/17 05:30 05:30 06:43 WBC RBC Hgb Hct MCV MCH MCHC RDW Plt Count MPV Neutrophils % Lymphocytes % Monocytes % Eosinophils % Basophils % INR 1.50 H D PTT (Actin FS) Sodium Potassium Chloride Carbon Dioxide Anion Gap BUN Creatinine Creat Clearance w eGFR POC Glucometer [phone] Random Glucose Calcium Phosphorus 2.7 D Magnesium 2.1 Total Bilirubin AST ALT Alkaline Phosphatase Creatine Kinase Troponin I B-Natriuretic Peptide Total Protein Albumin Urine Color Urine Appearance Urine pH Ur Specific Adams Urine Protein Urine Glucose (UA) Urine Ketones Urine Blood Urine Nitrite Urine Bilirubin Urine Urobilinogen Ur Leukocyte Esterase Urine RBC Urine WBC Ur Epithelial Cells Hyaline Casts Urine Mucus Blood Type Antibody Screen 01/07/17 01/07/17 01/07/17 12:29 17:11 22:29 WBC RBC Hgb Hct MCV MCH MCHC RDW Plt Count MPV Neutrophils % Lymphocytes % Monocytes % Eosinophils % Basophils % INR PTT (Actin FS) Sodium Potassium Chloride Carbon Dioxide Anion Gap BUN Creatinine Creat Clearance w eGFR POC Glucometer [phone] Random Glucose Calcium Phosphorus Magnesium Total Bilirubin AST ALT Alkaline Phosphatase Creatine Kinase Troponin I B-Natriuretic Peptide Total Protein Albumin Urine Color Urine Appearance Urine pH Ur Specific Adams Urine Protein Urine Glucose (UA) Urine Ketones Urine Blood Urine Nitrite Urine Bilirubin Urine Urobilinogen Ur Leukocyte Esterase Urine RBC Urine WBC Ur Epithelial Cells Hyaline Casts Urine Mucus Blood Type Antibody Screen 01/08/17 01/08/17 01/08/17 05:20 05:20 05:20 WBC 9.4 RBC 4.73 Hgb 15.0 D Hct 43.6 MCV 92.0 MCH 31.6 MCHC 34.4 RDW 14.2 Plt Count 140 MPV 10.7 Neutrophils % Lymphocytes % Monocytes % Eosinophils % Basophils % INR 1.19 H PTT (Actin FS) 31.2 Sodium 138 Potassium 3.9 Chloride 98 Carbon Dioxide 32 Anion Gap 8 BUN 9 D Creatinine 0.6 L Creat Clearance w eGFR > 60 POC Glucometer Random Glucose 231 H Calcium 8.4 L Phosphorus Magnesium Total Bilirubin 1.5 H D AST 27 D ALT 71 D Alkaline Phosphatase 75 Creatine Kinase Troponin I B-Natriuretic Peptide Total Protein 6.9 Albumin 3.4 Urine Color Urine Appearance Urine pH Ur Specific Adams Urine Protein Urine Glucose (UA) Urine Ketones Urine Blood Urine Nitrite Urine Bilirubin Urine Urobilinogen Ur Leukocyte Esterase Urine RBC Urine WBC Ur Epithelial Cells Hyaline Casts Urine Mucus Blood Type Antibody Screen 01/08/17 06:14 WBC RBC Hgb Hct MCV MCH MCHC RDW Plt Count MPV Neutrophils % Lymphocytes % Monocytes % Eosinophils % Basophils % INR PTT (Actin FS) Sodium Potassium Chloride Carbon Dioxide Anion Gap BUN Creatinine Creat Clearance w eGFR POC Glucometer [phone] Random Glucose Calcium Phosphorus Magnesium Total Bilirubin AST ALT Alkaline Phosphatase Creatine Kinase Troponin I B-Natriuretic Peptide Total Protein Albumin Urine Color Urine Appearance Urine pH Ur Specific Adams Urine Protein Urine Glucose (UA) Urine Ketones Urine Blood Urine Nitrite Urine Bilirubin Urine Urobilinogen Ur Leukocyte Esterase Urine RBC Urine WBC Ur Epithelial Cells Hyaline Casts Urine Mucus Blood Type Antibody Screen Imaging - Results Chest X-ray: Image Reviewed EKG: Image Reviewed (a sens v paced) Problem List - Problems (1) Acute spontaneous intraventricular hemorrhage due to cerebral aneurysm Code(s): I61.5 - NONTRAUMATIC INTRACEREBRAL HEMORRHAGE, INTRAVENTRICULAR I67.1 - CEREBRAL ANEURYSM, NONRUPTURED (2) Afib Code(s): I48.91 - UNSPECIFIED ATRIAL FIBRILLATION (3) Brain bleed Code(s): I61.9 - NONTRAUMATIC INTRACEREBRAL HEMORRHAGE, UNSPECIFIED (4) Diabetes 1.5, managed as type 1 Code(s): E10.9 - TYPE 1 DIABETES MELLITUS WITHOUT COMPLICATIONS Assessment/Plan hemmorhagic CVA cholecystectomy s/p DDDR PPM 12/2009 ?PAF CAD (?s/p inferior wall AR); Persantine MIBI 02/2009: no ischemia moderate carotid stenosis Diastolic CHF DM/retinopathy HTN Hyperlipidemia obese s/p complete heart block-->DDDR PPM (12/2009)--Buyoo truncal obesity Plan ICU monitorring stop and reverse ac f/u with neurology will check echo cc time 70 min
--- NOTE | 2017-01-08 10:40 | PN ---
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 Iv placed this am with improving arousability. Pt was responsive to me, although speech was not intelligible to me (Language barrier vs jargon noted yesterday with bowl turner). He did say "hello". He accepted trials of puree with extended bolus transfer, but fairly brisk swallow. Recommendations - Speech Evaluation, Impression/Plan Impression: Overtly, delayed but fair swallowing function. Ris of aspiration with thin liquids due to delayed swallow onset at this time, which may improve. Produces some social speech/verbalizations with some appropriate phrases interspersed with jargon. Eg "i had enough" "dinner" etc - Dysphagia Impressions/Plan Swallowing Skills: Impaired Dysphagia Impressions: Moderate Impairment, Risk of Aspiration, Ongoing Evaluation *Silent aspiration: cannot be R/O at bedside Dysphagia Treatment Plan: Chin Tuck/Down, Safe Rate, 1/2 tsp. at a time, Elevate HOB during feed, Other (feed slowly, observe for sallow reflex before next bite.) Recommendations: Modified Barium Swallow (to r/o aspiration, advance diet wit safety), 01/09? - Recommendations Diet Consistency: Dysphagia Pureed, Other (monitor for congestion, fever, cough, throat clearing, vocal wetness.) Medication Administration: Crushed with applesauce Liquids: Honey Thick Supplement: Magic Cup
--- NOTE | 2017-01-08 11:44 | PN ---
Physical Exam: SUBJECTIVE: Patient seen and examined OBJECTIVE: Vital Signs Period Temp Pulse Resp BP Sys/Stern Pulse Ox Last 24 Hr 98.8 F-99.0 F 64-79 14-20 112-171/39-78 97-99 GENERAL: The patient is awake, alert, and fully oriented, in no acute distress. HEAD: Normal with no signs of trauma. EYES: PERRL, extraocular movements intact, sclera anicteric, conjunctiva clear. No ptosis. ENT: Ears normal, nares patent, oropharynx clear without exudates, moist mucous membranes. NECK: Trachea midline, full range of motion, supple. LUNGS: Breath sounds equal, clear to auscultation bilaterally, no wheezes, no crackles, no accessory muscle use. HEART: Regular rate and rhythm, S1, S2 without murmur, rub or gallop. ABDOMEN: Soft, nontender, nondistended, normoactive bowel sounds, no guarding, no rebound, no hepatosplenomegaly, no masses. EXTREMITIES: 2+ pulses, warm, well-perfused, no edema. NEUROLOGICAL: Cranial nerves II through XII grossly intact. Normal speech, gait not observed. PSYCH: Normal mood, normal affect. SKIN: Warm, dry, normal turgor, no rashes or lesions noted Laboratory Results - last 24 hr 01/06/17 01/07/17 01/07/17 18:00 12:29 17:11 WBC RBC Hgb Hct MCV MCH MCHC RDW Plt Count MPV INR PTT (Actin FS) Sodium Potassium Chloride Carbon Dioxide Anion Gap BUN Creatinine Creat Clearance w eGFR POC Glucometer [phone] Random Glucose Calcium Total Bilirubin AST ALT Alkaline Phosphatase Total Protein Albumin Blood Type A POSITIVE Antibody Screen Negative 01/07/17 01/08/17 01/08/17 22:29 05:20 05:20 WBC 9.4 RBC 4.73 Hgb 15.0 D Hct 43.6 MCV 92.0 MCH 31.6 MCHC 34.4 RDW 14.2 Plt Count 140 MPV 10.7 INR 1.19 H PTT (Actin FS) 31.2 Sodium Potassium Chloride Carbon Dioxide Anion Gap BUN Creatinine Creat Clearance w eGFR POC Glucometer [phone] Random Glucose Calcium Total Bilirubin AST ALT Alkaline Phosphatase Total Protein Albumin Blood Type Antibody Screen 01/08/17 01/08/17 05:20 06:14 WBC RBC Hgb Hct MCV MCH MCHC RDW Plt Count MPV INR PTT (Actin FS) Sodium 138 Potassium 3.9 Chloride 98 Carbon Dioxide 32 Anion Gap 8 BUN 9 D Creatinine 0.6 L Creat Clearance w eGFR > 60 POC Glucometer 264.73181 Random Glucose 231 H Calcium 8.4 L Total Bilirubin 1.5 H D AST 27 D ALT 71 D Alkaline Phosphatase 75 Total Protein 6.9 Albumin 3.4 Blood Type Antibody Screen Active Medications Generic Name Dose Route Start Last Admin Trade Name Yuliya PRN Reason Stop Dose Admin Chlorhexidine Gluconate 1 applic 01/06/17 22:00 01/07/17 22:37 Hibiclens For Decolonization - TP 1 applic HS PAULINA Administration Dextrose/Sodium Chloride 1,000 mls @ 75 mls/hr 01/07/17 02:30 01/08/17 06:19 D5-1/2ns - IV 75 mls/hr ASDIR PAULINA Administration Insulin Aspart 1 vial 01/07/17 06:00 01/08/17 06:19 Novolog Vial Sliding Scale - SQ 6 units Q6HPO PAULINA Administration Protocol Mupirocin 1 applic 01/06/17 22:00 01/08/17 09:29 Bactroban Ointment (For Decolonization) - NS 01/11/17 21:59 1 applic BID PAULINA Administration ASSESSMENT/PLAN:
--- NOTE | 2017-01-08 11:47 | PN ---
Teaching Attending Note Name of Resident: Michelle Palma ATTENDING PHYSICIAN STATEMENT I saw and evaluated the patient. I reviewed the resident's note and discussed the case with the resident. I agree with the resident's findings and plan as documented. SUBJECTIVE: Pt seen and examined in the ICU. Remains lethargic, nonverbal. Evaluated by neurosurgery, no emergent surgery planned at this time. OBJECTIVE: Last Vital Signs Temp Pulse Resp BP Pulse Ox 98.8 F 79 20 133/63 99 01/08/17 06:00 01/08/17 10:00 01/08/17 10:00 01/08/17 10:00 01/08/17 08:07 Intake & Output 01/05/17 01/06/17 01/07/17 01/08/17 23:59 23:59 23:59 23:59 Intake Total 372 1127 900 Balance 372 1127 900 Weight 170 lb 13.732 oz 173 lb 3.2 oz 170 lb 10.205 oz Gen: lethargic Heart: RRR Lung: decreased breath sounds at the bases Abd: soft, nontender Ext: no edema CBC, BMP 01/08/17 05:20 01/08/17 05:20 Active Medications Chlorhexidine Gluconate (Hibiclens For Decolonization -) 1 applic TP HS [facility] Last Admin: 01/07/17 22:37 Dose: 1 applic Dextrose/Sodium Chloride (D5-1/2ns -) 1,000 mls @ 75 mls/hr IV ASDIR PAUL[facility] Last Admin: 01/08/17 06:19 Dose: 75 mls/hr Insulin Aspart (Novolog Vial Sliding Scale -) 1 vial SQ Q6HPO [facility] PRN Reason: Protocol Last Admin: 01/08/17 06:19 Dose: 6 units Mupirocin (Bactroban Ointment (For Decolonization) -) 1 applic NS BID PAULINA Stop: 01/11/17 21:59 Last Admin: 01/08/17 09:29 Dose: 1 applic ASSESSMENT AND PLAN: Intracranial Hemorrhage Hydrocephalus Altered Mental Status Atrial Fibrillation s/p PPM HTN DM Hyperlipidemia - monitor CBC, coags - aspiration precautions - NPO due to mental status - IVF - DVT prophylaxis with SCDs - can monitor on floor
--- NOTE | 2017-01-08 13:52 | PN ---
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 (short form) - Note 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: Patient continues to remain lethargic. Case discussed with Drs. Polk and Avril. It appears that the lethargy may be attributed to the complex hydrocephalus picture with varying elements of NPH, obstructive and communicating hydrocephalus. We will discuss the role of ENGRAVER JEWELRY shunting with the family with an understanding that the patient is at elevated risk for infection and subdural hematoma formation. Will await family decision before proceeding further.
[2017-01-08 16:59] LABS: MCH 31.5 pg (25.7-33.7); MCHC 34.2 g/dl (32.0-35.9); MEAN CELL VOLUME 92.2 fl (80-96); MEAN PLT VOLUME 10.7 fl (7.5-11.1); PLATELET COUNT 136 K/MM3 (134-434); RDW 14.4 % (11.9-15.9); WHITE BLOOD COUNT 9.4 K/mm3 (4.0-10.0)
--- NOTE | 2017-01-08 19:52 | PN ---
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, Physician History of Present Illness: Neurosurgery consult reviewed and appreciated. Pt. appears more alert today( compared to yesterday),he is sitting up in bed, picking at bed clothes, follows simple commands, attempts to answer questions. Tone is increased in both legs> arms, strength 5/5 in UEs but due to increased extensor tone unable to test strength. I reviewed patients hx.with family today- he has had cognitive decline at least since 2012(at that time a CT head did not show vents. to be as large as they are now). 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 of NPH. Dr. Stark is in concurrence. Presented the possibility of MANAGER DELIVERY shunt placement for NPH-the daughter and 2 grandchildren agree with proceeding with a shunt. D/W Dr. Stark-he will discuss placement with family tomorrow and will proceed with surgery by 12noon if family gives consent. Stan Mackenzie MD - Current Medication List Current Medications: Active Medications Chlorhexidine Gluconate (Hibiclens For Decolonization -) 1 applic TP HS [facility] Dextrose/Sodium Chloride (D5-1/2ns -) 1,000 mls @ 75 mls/hr IV ASDIR [facility] Last Admin: 01/08/17 18:35 Dose: 75 mls/hr Insulin Aspart (Novolog Vial Sliding Scale -) 1 vial SQ Q6HPO [facility] PRN Reason: Protocol Last Admin: 01/08/17 18:19 Dose: Not Given Mupirocin (Bactroban Ointment (For Decolonization) -) 1 applic NS BID [facility] Stop: 01/11/17 21:59 - Objective Vital Signs: Vital Signs Temperature 98.4 F 01/08/17 18:00 Pulse Rate 73 01/08/17 18:00 Respiratory Rate 20 01/08/17 18:00 Blood Pressure 114/59 01/08/17 18:00 O2 Sat by Pulse Oximetry (%) 99 01/08/17 08:07 Labs: CBC, BMP 01/08/17 16:55 01/08/17 05:20 INR, PTT INR 1.19 (0.82-1.09) H 01/08/17 05:20
--- NOTE | 2017-01-08 19:55 | PN ---
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 (short form) - Note 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: Neurosurgery consult reviewed and appreciated. Pt. appears more alert today( compared to yesterday),he is sitting up in bed, picking at bed clothes, follows simple commands, attempts to answer questions. Tone is increased in both legs> arms, strength 5/5 in UEs but due to increased extensor tone unable to test strength. I reviewed patients hx.with family today- he has had cognitive decline at least since 2012(at that time a CT head did not show vents. to be as large as they are now). 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 of NPH. Dr. Stark is in concurrence. Presented the possibility of STORM DOOR MAKER shunt placement for NPH-the daughter and 2 grandchildren agree with proceeding with a shunt. D/W Dr. Stark-he will discuss placement with family tomorrow and will proceed with surgery by 12noon if family gives consent. D/W Dr. Bobo-decisoin to resume a/c will be made after surgery/recovery. Will d/w pts. PMD and request medical clearance.. Stan Mackenzie MD
--- NOTE | 2017-01-08 21:51 | PN ---
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, Physician History of Present Illness: Continues to be aphasic but not in respiratory distress.Does not respond to any commands at present but appears like he was more alert earlier in the day, and was sitting up but continues to be incontinent of urine. Case discussed with and the possibility that his deterioration could be due to NPH and a SHAFT MECHANIC shunt may help in the improvement in his clinical condition. This has been discussed with family who are in agreement to proceed with the procedure. - Current Medication List Current Medications: Active Medications Chlorhexidine Gluconate (Hibiclens For Decolonization -) 1 applic TP HS [facility] Dextrose/Sodium Chloride (D5-1/2ns -) 1,000 mls @ 75 mls/hr IV ASDIR [facility] Last Admin: 01/08/17 18:35 Dose: 75 mls/hr Insulin Aspart (Novolog Vial Sliding Scale -) 1 vial SQ Q6HPO [facility] PRN Reason: Protocol Last Admin: 01/08/17 18:19 Dose: Not Given Mupirocin (Bactroban Ointment (For Decolonization) -) 1 applic NS BID [facility] Stop: 01/11/17 21:59 - Objective Vital Signs: Vital Signs Temperature 98.4 F 01/08/17 18:00 Pulse Rate 73 01/08/17 18:00 Respiratory Rate 20 01/08/17 18:00 Blood Pressure 114/59 01/08/17 18:00 O2 Sat by Pulse Oximetry (%) 99 01/08/17 08:07 Constitutional: Yes: No Distress, Other (no resp. distress, no agitation, moves all his extremities) Eyes: Yes: Other (eyes are closed all the time) HENT: Yes: WNL Neck: Yes: Supple Respiratory: Yes: Regular, CTA Bilaterally Gastrointestinal: Yes: Normal Bowel Sounds, Soft Genitourinary: Yes: Incontinence Musculoskeletal: Yes: WNL Extremities: Yes: WNL Edema: No Peripheral Pulses WNL: No Peripheral Pulses: Left Radial: 3+, Right Radial: 3+, Left Doralis Pedis: 0, Right Dorsalis Pedis: 1+, Left Femoral: 2+, Right Femoral: 2+ Integumentary: Yes: WNL Neurological: Yes: Aphasia, Other (moves all extremities, does not follow commands) Psychiatric: Yes: Other (calm without any agitation) Labs: CBC, BMP 01/08/17 16:55 01/08/17 05:20 INR, PTT INR 1.19 (0.82-1.09) H 01/08/17 05:20 Problem List - Problems (1) Brain bleed Assessment/Plan: intraventricular layering of blood without progression with second CT scan Code(s): I61.9 - NONTRAUMATIC INTRACEREBRAL HEMORRHAGE, UNSPECIFIED (2) Acute spontaneous intraventricular hemorrhage due to cerebral aneurysm Code(s): I61.5 - NONTRAUMATIC INTRACEREBRAL HEMORRHAGE, INTRAVENTRICULAR I67.1 - CEREBRAL ANEURYSM, NONRUPTURED (3) Afib Assessment/Plan: VR is controlled Code(s): I48.91 - UNSPECIFIED ATRIAL FIBRILLATION (4) Diabetes, type 1.5, uncontrolled, managed as type 1 Assessment/Plan: Patient is being hydrated with IV fluid and hyperglycemia controlled with Reg Insulin. Code(s): E10.65 - TYPE 1 DIABETES MELLITUS WITH HYPERGLYCEMIA (5) Retinopathy due to secondary diabetes Assessment/Plan: He has had progressive diabetic retinopathy with blindness Code(s): E13.319 - OTH DIABETES W UNSP DIABETIC RETINOPATHY W/O MACULAR EDEMA Assessment/Plan case discussed with Dr Mackenzie and NPH appears to be possible cause of his mental changes and after discussing with , neurosurgeon has been decided to proceed with SHAFT MECHANIC shunt which may improve his clinical condition. Further discussion with family members scheduled in AM by .
[2017-01-08] MEDS ORDERED: CHLORHEXIDINE GLUCONATE 4% CLEANSER FOR DECOLONIZATION TP SCH ×2 (22:00)
[2017-01-08] MEDS ORDERED: MUPIROCIN 2% TOPICAL OINTMENT FOR DECOLONIZATION NS SCH (22:00)
[2017-01-09] MEDS: INSULIN SLIDING SCALE (NOVOLOG) 1 VIAL SQ SCH ×4 (07:26→23:11)
[2017-01-09 07:43] LABS: MCHC 33.7 g/dl (32.0-35.9); MEAN PLT VOLUME 10.3 fl (7.5-11.1); PLATELET COUNT 132 K/MM3 (134-434); WHITE BLOOD COUNT 8.5 K/mm3 (4.0-10.0)
[2017-01-09 08:05] LABS: ANION GAP 6 (8-16); CALCIUM 8.5 mg/dL (8.5-10.1); CO2 32 mmol/L (21-32); CREATININE 0.6 mg/dL (0.7-1.3); GLUCOSE,RANDOM 273 mg/dL (74-106)
--- NOTE | 2017-01-09 10:32 | PN ---
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 Risk of aspiration with thin liquids due to delayed swallow onset at this time, which may improve. - Dysphagia Impressions/Plan Swallowing Skills: Impaired Dysphagia Impressions: Moderate Impairment, Risk of Aspiration, Ongoing Evaluation *Silent aspiration: cannot be R/O at bedside Dysphagia Treatment Plan: Chin Tuck/Down, Safe Rate, 1/2 tsp. at a time, Elevate HOB during feed, Other (feed slowly, observe for sallow reflex before next bite.) - Recommendations Diet Consistency: Dysphagia Pureed, Other (monitor for congestion, fever, cough, throat clearing, vocal wetness.) Medication Administration: Crushed with applesauce Liquids: Honey Thick Supplement: Magic Cup NPO pending shunt. Recommendations: Modified Barium Swallow (to r/o aspiration, advance diet with safety)once medically stable. 01/14? Pt was on regular diet thin liquid premorbidly at home.
[2017-01-09] MEDS: DEXTROSE 5%-0.45% SALINE 1,000 ML IV SCH ×2 (11:56→20:31)
[2017-01-09] MEDS ORDERED: INSULIN (NOVOLOG) ASPART 100 UNITS/ML 10ML VIAL ONE (12:11)
[2017-01-09] MEDS ORDERED: PROPOFOL 20 ML ONE ×2 (13:24→13:28)
[2017-01-09] MEDS ORDERED: ROCURONIUM BROMIDE 50 MG/5 ML VIAL ONE (13:24)
[2017-01-09] MEDS ORDERED: LIDOCAINE HCL/PF 2% SDV 5ML VIAL ONE (13:24)
--- NOTE | 2017-01-09 14:37 | PN ---
Physical Exam: SUBJECTIVE: Patient seen and examined. He doesn't have any complaints today. no overnight events. OBJECTIVE: Vital Signs Period Temp Pulse Resp BP Sys/Stern Pulse Ox Last 24 Hr 97.8 F-99.2 F 70-84 12-20 109-151/59-92 97 GENERAL: The patient is awake, lethargic, not answering questions. HEAD: Normal with no signs of trauma. EYES: PERRL, not following commands ENT: moist mucous membranes. NECK: Trachea midline, full range of motion, supple. LUNGS: Breath sounds equal, clear to auscultation bilaterally, no wheezes, no crackles, no accessory muscle use. HEART: Regular rate and rhythm, S1, S2 without murmur, rub or gallop. ABDOMEN: Soft, nontender, nondistended, normoactive bowel sounds, no guarding, no rebound. EXTREMITIES: 2+ pulses, warm NEUROLOGICAL: Lethargic, not following commands, gait not observed. PSYCH: Normal mood, normal affect. SKIN: Warm, dry, normal turgor, no rashes. Laboratory Results - last 24 hr 01/08/17 01/08/17 01/09/17 16:55 22:17 06:08 WBC 9.4 RBC 4.53 Hgb 14.3 Hct 41.8 MCV 92.2 MCH 31.5 MCHC 34.2 RDW 14.4 Plt Count 136 MPV 10.7 Sodium Potassium Chloride Carbon Dioxide Anion Gap BUN Creatinine POC Glucometer 317 248 Random Glucose Calcium 01/09/17 01/09/17 01/09/17 06:45 06:45 11:52 WBC 8.5 RBC 4.72 Hgb 14.6 Hct 43.4 MCV 92.0 MCH 31.0 MCHC 33.7 RDW 14.0 Plt Count 132 L MPV 10.3 Sodium 137 Potassium 3.8 Chloride 99 Carbon Dioxide 32 Anion Gap 6 L BUN 7 D Creatinine 0.6 L POC Glucometer 295 Random Glucose 273 H Calcium 8.5 Active Medications Generic Name Dose Route Start Last Admin Trade Name Freq PRN Reason Stop Dose Admin Chlorhexidine Gluconate 1 applic 01/08/17 22:00 01/08/17 22:22 Hibiclens For Decolonization - TP 1 applic HS PAULINA Administration Dextrose/Sodium Chloride 1,000 mls @ 75 mls/hr 01/08/17 11:47 01/09/17 11:56 D5-1/2ns - IV 75 mls/hr ASDIR PAULINA Administration Insulin Aspart 1 vial 01/08/17 12:00 01/09/17 11:56 Novolog Vial Sliding Scale - SQ 6 units Q6HPO PAULINA Administration Protocol ASSESSMENT/PLAN: 89 M with h/o afib on coumadin, PPM, DM, HTN, HLD, dementia now presenting to ER with 1 month of worsening lethargy and confusion found to have intraventricular hemorrhage on CT. Neuro: Intracranial Hemorrhage and Hydrocephalus, consulted neurosurgery, no recommendation for emergent surgical evaluation Altered Mental Status- evaluated by Neurology, will f/u further recommendations Neuro checks transfused 1 more unit of FFP aspiration precautions NPO Evaluated by speech and swallow cont fluids Cardio: Atrial Fibrillation hold meds for now Endo: cont ISS, BGM s/p PPM DVT PPX: SCDs Disposition: the pt can go to med surg floor if no surgical intervention now Problem List - Problems (1) Acute spontaneous intraventricular hemorrhage due to cerebral aneurysm Code(s): I61.5 - NONTRAUMATIC INTRACEREBRAL HEMORRHAGE, INTRAVENTRICULAR I67.1 - CEREBRAL ANEURYSM, NONRUPTURED (2) Afib Code(s): I48.91 - UNSPECIFIED ATRIAL FIBRILLATION (3) Brain bleed Code(s): I61.9 - NONTRAUMATIC INTRACEREBRAL HEMORRHAGE, UNSPECIFIED Visit type - Emergency Visit Emergency Visit: Yes ED Registration Date: 01/06/17 Care time: The patient presented to the Emergency Department on the above date and was hospitalized for further evaluation of their emergent condition. - New Patient This patient is new to me today: No - Critical Care Critical Care patient: Yes Total Critical Care Time (in minutes): 40 Critical Care Statement: The care of this patient involved high complexity decision making to prevent further life threatening deterioration of the patient 's condition and/or to evaluate & treat vital organ system(s) failure or risk of failure.
[2017-01-09] MEDS ORDERED: GENTAMICIN SO4 80 MG/2 ML VIAL ONE (14:40)
[2017-01-09] MEDS ORDERED: ePHEDrine SULFATE 50 MG/1 ML AMPULE ONE (14:45)
[2017-01-09] MEDS ORDERED: LIDOCAINE HCL 0.5% EPINEPHRINE 1:200,000 50 ML VIAL IJ ONE (15:03)
[2017-01-09] MEDS ORDERED: DEXAMETHASONE SOD PHOSPHATE 4 MG/1 ML VIAL ONE (15:08)
[2017-01-09] MEDS ORDERED: ONDANSETRON 4 MG/2 ML VIAL ONE (15:08)
[2017-01-09] MEDS ORDERED: ceFAZolin SODIUM 1 GM VIAL IVPB ONE (15:12)
[2017-01-09] MEDS ORDERED: GLYCOPYRROLATE 0.2 MG/1 ML VIAL ONE (16:15)
[2017-01-09] MEDS ORDERED: NEOSTIGMINE METHYLSULFATE 0.5 MG/ML - 10 ML MDV ONE (16:15)
[2017-01-09] MEDS ORDERED: ONDANSETRON 4 MG/2 ML VIAL IVPUSH PRN ×2 (16:32→17:03)
[2017-01-09] MEDS ORDERED: PROMETHAZINE HCL 25 MG/1 ML VIAL IVPUSH PRN ×2 (16:32→17:03)
--- NOTE | 2017-01-09 16:39 | OP ---
Operative Note - Note: Operative Date: 01/09/17 Pre-Operative Diagnosis: hydrocephalus Operation: BOAT FUELER Shunt Post-Operative Diagnosis: Same as Pre-op Surgeon: Leo Cook Boiler House Mechanic: Ap Clifton Anesthesiologist/GEM EXPERT: Apurva Hickman Anesthesia: General Fluid Volume Replaced (mls): 800 Operative Report Dictated: Yes
--- NOTE | 2017-01-09 16:40 | SURG ---
Surgery Metrology Technician Note Metrology Technician: Ap Clifton PA-C Date of Service: 01/09/17 Diagnosis: Hydrocephalus Procedure: SASH FINISHER Shunt I was present for the entirety of the operative procedure. For further detail, please refer to operative report. Visit type - Case Type Case Type: ED Admission - New patient This patient is new to me today: Yes Date on this admission: 01/09/17
[2017-01-09] MEDS: CHLORHEXIDINE GLUCONATE 4% CLEANSER FOR DECOLONIZATION TP SCH (20:59)
--- NOTE | 2017-01-09 21:05 | PN ---
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, Physician History of Present Illness: S/P INTERNAL GRINDER TENDER shunt placement under GA. Opens his left eye on tapping his shoulder. No respiratory distress. Dressing of the scalp, neck and abdomen are dry. - Current Medication List Current Medications: Active Medications Chlorhexidine Gluconate (Hibiclens For Decolonization -) 1 applic TP HS [facility] Last Admin: 01/09/17 20:59 Dose: Not Given Dextrose/Sodium Chloride (D5-1/2ns -) 1,000 mls @ 75 mls/hr IV ASDIR [facility] Last Admin: 01/09/17 20:31 Dose: 75 mls/hr Insulin Aspart (Novolog Vial Sliding Scale -) 1 vial SQ Q6HPO [facility] PRN Reason: Protocol Last Admin: 01/09/17 18:41 Dose: Not Given Ondansetron HCl (Zofran Injection) 4 mg IVPUSH Q6H PRN PRN Reason: NAUSEA AND/OR VOMITING Stop: 01/09/17 22:33 Promethazine HCl (Phenergan Injection -) 12.5 mg IVPUSH Q6H PRN PRN Reason: NAUSEA-FOR RESCUE AFTER 15 MIN Stop: 01/09/17 22:33 - Objective Vital Signs: Vital Signs Temperature 97.6 F 01/09/17 16:55 Pulse Rate 91 H 01/09/17 18:40 Respiratory Rate 16 01/09/17 18:40 Blood Pressure 112/47 01/09/17 18:40 O2 Sat by Pulse Oximetry (%) 100 01/09/17 18:40 Constitutional: Yes: No Distress Eyes: Yes: Conjunctiva Clear HENT: Yes: WNL Neck: Yes: Supple Cardiovascular: Yes: Regular Rate and Rhythm, S1, S2 Respiratory: Yes: Regular, CTA Bilaterally Gastrointestinal: Yes: Normal Bowel Sounds, Soft Genitourinary: Yes: Incontinence Musculoskeletal: Yes: WNL, Muscle Weakness Extremities: Yes: WNL Edema: No Peripheral Pulses WNL: No Peripheral Pulses: Left Doralis Pedis: 0, Right Dorsalis Pedis: 0 Wound/Incision: Yes: Clean/Dry Neurological: Yes: Aphasia ...Motor Strength: WNL Labs: CBC, BMP 01/09/17 06:45 01/09/17 06:45 INR, PTT INR 1.19 (0.82-1.09) H 01/08/17 05:20 Problem List - Problems (1) Hydrocephalus in adult Code(s): G91.9 - HYDROCEPHALUS, UNSPECIFIED (2) Brain bleed Code(s): I61.9 - NONTRAUMATIC INTRACEREBRAL HEMORRHAGE, UNSPECIFIED (3) Acute spontaneous intraventricular hemorrhage due to cerebral aneurysm Code(s): I61.5 - NONTRAUMATIC INTRACEREBRAL HEMORRHAGE, INTRAVENTRICULAR I67.1 - CEREBRAL ANEURYSM, NONRUPTURED (4) Dementia Assessment/Plan: Has had progressive mental changes in past prior to the fall a few weeks ago. Code(s): F03.90 - UNSPECIFIED DEMENTIA WITHOUT BEHAVIORAL DISTURBANCE (5) Anticoagulated on Coumadin Assessment/Plan: Due to AFIB was on coumadin INR was 2.6, When intracerebral bleed detected on CT brain was treated with FFP and IV Vit K. and INR was normal pre op. Code(s): Z51.81 - ENCOUNTER FOR THERAPEUTIC DRUG LEVEL MONITORING Z79.01 - CLINICAL SCIENTIST (CURRENT) USE OF ANTICOAGULANTS (6) Paroxysmal a-fib Code(s): I48.0 - PAROXYSMAL ATRIAL FIBRILLATION (7) Diabetes 1.5, managed as type 1 Assessment/Plan: On IV fluids for hydration and nutrition as PO intake is poor and BGM monitored Q6h with Reg.Insulin coverage. Code(s): E10.9 - TYPE 1 DIABETES MELLITUS WITHOUT COMPLICATIONS Assessment/Plan Continue to monitor closely with IV fluids and Insulin coverage. Being fed small amounts of puree diet due to possibility of aspiration.
[2017-01-10] MEDS: INSULIN SLIDING SCALE (NOVOLOG) 1 VIAL SQ SCH ×3 (05:27→17:45)
[2017-01-10] MEDS: DEXTROSE 5%-0.45% SALINE 1,000 ML IV SCH ×2 (06:31→17:46)
--- NOTE | 2017-01-10 10:43 | PN ---
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, Physician Chief Complaint: Pt responds weakly to verbal queries; otherwise lethargic. Pt's daughter, granddaughter, and are at bedside. History of Present Illness: Mr. Schaefer is an 89 yo male (b. Chary) with a significant past medical history of paroxysmal AF on coumadin, pacemaker, DM who presents to the emergency department with a decline over the last month and a half from able to walk with a walker and baseline respond to unable to ambulate with cognitive disorientation. Daughter visited this AM and called PCP on noticing decline and was recommended to come in. Allergies: NKDA Past surgical history: hip replacement and pacemaker placement PMD - Paolo Card - Current Medication List Current Medications: Active Medications Chlorhexidine Gluconate (Hibiclens For Decolonization -) 1 applic TP HS [facility] Last Admin: 01/09/17 20:59 Dose: Not Given Dextrose/Sodium Chloride (D5-1/2ns -) 1,000 mls @ 75 mls/hr IV ASDIR [facility] Last Admin: 01/10/17 06:31 Dose: 75 mls/hr Insulin Aspart (Novolog Vial Sliding Scale -) 1 vial SQ Q6HPO [facility] PRN Reason: Protocol Last Admin: 01/10/17 05:27 Dose: 10 units - Objective Vital Signs: Vital Signs Temperature 99.2 F 01/10/17 06:00 Pulse Rate 90 01/10/17 06:00 Respiratory Rate 18 01/10/17 06:00 Blood Pressure 134/63 01/10/17 06:00 O2 Sat by Pulse Oximetry (%) 100 01/09/17 21:00 Constitutional: Yes: Other (weak; largely unresponsive) Eyes: Yes: WNL HENT: Yes: WNL Neck: Yes: WNL Cardiovascular: Yes: Regular Rate and Rhythm Respiratory: Yes: Regular Gastrointestinal: Yes: Soft ...Rectal Exam: Yes: Deferred Genitourinary: No: Anuria Breast(s): Yes: WNL Musculoskeletal: Yes: Muscle Weakness Extremities: Yes: Cool Edema: No Peripheral Pulses WNL: No Peripheral Pulses: Left Doralis Pedis: 1+, Right Dorsalis Pedis: 1+ Integumentary: Yes: WNL Neurological: Yes: Tremors Labs: CBC, BMP 01/09/17 06:45 01/09/17 06:45 INR, PTT INR 1.19 (0.82-1.09) H 01/08/17 05:20 - ....Imaging Other: Image Reviewed (periods of AV pacing) Problem List - Problems (1) Acute spontaneous intraventricular hemorrhage due to cerebral aneurysm Assessment/Plan: As discussed with Drs. King and Avril, pt will undergo POLICE RECORDS CLERK shunt today. Post-op, pt will likely not be restarted on anticoagulation (hx remote PAF; now with cerebral bleed after a fall). Code(s): I61.5 - NONTRAUMATIC INTRACEREBRAL HEMORRHAGE, INTRAVENTRICULAR I67.1 - CEREBRAL ANEURYSM, NONRUPTURED (2) Afib Code(s): I48.91 - UNSPECIFIED ATRIAL FIBRILLATION (3) Hydrocephalus in adult Code(s): G91.9 - HYDROCEPHALUS, UNSPECIFIED (4) Retinopathy due to secondary diabetes Code(s): E13.319 - OTH DIABETES W UNSP DIABETIC RETINOPATHY W/O MACULAR EDEMA (5) Dementia Code(s): F03.90 - UNSPECIFIED DEMENTIA WITHOUT BEHAVIORAL DISTURBANCE
--- NOTE | 2017-01-10 10:47 | PN ---
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, Physician Chief Complaint: Pt, with dressing covering head, is lethargic, but opens eyes occasionally. History of Present Illness: Mr. Schaefer is an 89 yo male (b. [place]) with a significant past medical history of paroxysmal AF on coumadin, pacemaker, DM who presents to the emergency department with a decline over the last month and a half from able to walk with a walker and baseline respond to unable to ambulate with cognitive disorientation. Daughter visited this AM and called PCP on noticing decline and was recommended to come in. Allergies: NKDA Past surgical history: hip replacement and pacemaker placement PMD - Paolo Card - Current Medication List Current Medications: Active Medications Chlorhexidine Gluconate (Hibiclens For Decolonization -) 1 applic TP HS [facility] Last Admin: 01/09/17 20:59 Dose: Not Given Dextrose/Sodium Chloride (D5-1/2ns -) 1,000 mls @ 75 mls/hr IV ASDIR [facility] Last Admin: 01/10/17 06:31 Dose: 75 mls/hr Insulin Aspart (Novolog Vial Sliding Scale -) 1 vial SQ Q6HPO [facility] PRN Reason: Protocol Last Admin: 01/10/17 05:27 Dose: 10 units - Objective Vital Signs: Vital Signs Temperature 99.2 F 01/10/17 06:00 Pulse Rate 90 01/10/17 06:00 Respiratory Rate 18 01/10/17 06:00 Blood Pressure 134/63 01/10/17 06:00 O2 Sat by Pulse Oximetry (%) 100 01/09/17 21:00 Constitutional: Yes: Other Labs: CBC, BMP 01/09/17 06:45 01/09/17 06:45 INR, PTT INR 1.19 (0.82-1.09) H 01/08/17 05:20 Problem List - Problems (1) Acute spontaneous intraventricular hemorrhage due to cerebral aneurysm Assessment/Plan: s/p HUNTING SALES ASSOCIATE shunt. F/u with neurosugeon, neurologist. Code(s): I61.5 - NONTRAUMATIC INTRACEREBRAL HEMORRHAGE, INTRAVENTRICULAR I67.1 - CEREBRAL ANEURYSM, NONRUPTURED (2) Hydrocephalus in adult Code(s): G91.9 - HYDROCEPHALUS, UNSPECIFIED (3) Retinopathy due to secondary diabetes Code(s): E13.319 - OTH DIABETES W UNSP DIABETIC RETINOPATHY W/O MACULAR EDEMA (4) Dementia Code(s): F03.90 - UNSPECIFIED DEMENTIA WITHOUT BEHAVIORAL DISTURBANCE (5) Paroxysmal a-fib Assessment/Plan: Controlled HR presently without AV conduction blockers. Code(s): I48.0 - PAROXYSMAL ATRIAL FIBRILLATION
--- NOTE | 2017-01-10 11:21 | PN ---
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 Sleeping. Case reviewed again with other family member. h/o forgetfulness, disorientation , sundowning for a couple of years. About a month ago, several falls, (+) hitting his head. Onset of communication deficits, with tangential responses, and developed to unintelligible, possibly jargon. PO intake was always unaffected. During my initial evaluation, some social speech elicited with jargon/ paraphasic errors. Present diet of clear, honey thick liquid.Not initiated due to lethargy. Selected Entries 01/09/17 01/09/17 01/09/17 02:00 06:00 10:00 Temperature 98.5 F 98.3 F 97.8 F 01/09/17 01/09/17 01/09/17 14:00 16:55 19:55 Temperature 98.6 F 97.6 F 98.8 F 01/09/17 01/09/17 01/10/17 20:15 23:00 02:00 Temperature 98.2 F 98.7 F 98.3 F 01/10/17 06:00 Temperature 99.2 F Laboratory Tests 01/09/17 06:45 WBC 8.5 Reviewed with family benefit of eliciting speech-Initially, in unison or upon repetition, eg prayers, counting, social speech, etc. Once more alert, puree, thick liquid. MBS next week to upgrade diet, if indicated. Concur with STR for PT,OT,Speech therapy.
--- NOTE | 2017-01-10 17:38 | PN ---
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 (short form) - Note 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: Anesthesia postop note 89 y/o M s/p GA for PATENT CLERK shunt placement POD#1, vss, in no distress, not arousable now but the family reports he is better than preop No anesthesia complications.
--- NOTE | 2017-01-10 18:11 | PN ---
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, Physician History of Present Illness: 89 M with h/o afib on coumadin, PPM, DM, HTN, HLD, dementia now presenting to ER with 1 month of worsening lethargy and confusion found to have intraventricular hemorrhage on CT and porgressive hydrocephalus, s/p BUSINESS RESILIENCY MANAGER shunt, POD day 1 eyes still closed but as per family has had simple verbal output earlier in day off AC - Current Medication List Current Medications: Active Medications Chlorhexidine Gluconate (Hibiclens For Decolonization -) 1 applic TP HS [facility] Last Admin: 01/09/17 20:59 Dose: Not Given Dextrose/Sodium Chloride (D5-1/2ns -) 1,000 mls @ 75 mls/hr IV ASDIR [facility] Last Admin: 01/10/17 17:46 Dose: Not Given Insulin Aspart (Novolog Vial Sliding Scale -) 1 vial SQ Q6HPO [facility] PRN Reason: Protocol Last Admin: 01/10/17 17:45 Dose: 12 units - Objective Vital Signs: Vital Signs Temperature 98.4 F 01/10/17 14:00 Pulse Rate 80 01/10/17 14:00 Respiratory Rate 20 01/10/17 14:00 Blood Pressure 128/62 01/10/17 14:00 O2 Sat by Pulse Oximetry (%) 100 01/10/17 09:00 Neurological: Yes: Other (eyes closed, noverbal, + tremor and cogwheeling , R >L , inc tone in LE) Labs: CBC, BMP 01/09/17 06:45 01/09/17 06:45 INR, PTT INR 1.19 (0.82-1.09) H 01/08/17 05:20 Problem List - Problems (1) Acute spontaneous intraventricular hemorrhage due to cerebral aneurysm Code(s): I61.5 - NONTRAUMATIC INTRACEREBRAL HEMORRHAGE, INTRAVENTRICULAR I67.1 - CEREBRAL ANEURYSM, NONRUPTURED (2) Afib Code(s): I48.91 - UNSPECIFIED ATRIAL FIBRILLATION (3) Hydrocephalus in adult Code(s): G91.9 - HYDROCEPHALUS, UNSPECIFIED Assessment/Plan s/p BUSINESS RESILIENCY MANAGER shunt, hydrocephalus , though dementia likely multifactorial, primary dementia, bleed, nph , superimposed parkinsons/vs vascular parkinsonism still poorly arousable but may take few days to adjust to new pressures, if remains obtunded repeat HD CT in AM explained to family may also represent limited effect of shunt as dementia has been ongoing for some time Dr De Leon
--- NOTE | 2017-01-10 21:09 | PN ---
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, Physician History of Present Illness: Continues to be very lethargic. As per family he uttered some words but never opened his eyes. Has been ingesting very small amount of puree food. Being mintained on IV fluid with Reg Imsulin coverage - Current Medication List Current Medications: Active Medications Chlorhexidine Gluconate (Hibiclens For Decolonization -) 1 applic TP HS [facility] Last Admin: 01/09/17 20:59 Dose: Not Given Dextrose/Sodium Chloride (D5-1/2ns -) 1,000 mls @ 75 mls/hr IV ASDIR [facility] Last Admin: 01/10/17 17:46 Dose: Not Given Insulin Aspart (Novolog Vial Sliding Scale -) 1 vial SQ Q6HPO [facility] PRN Reason: Protocol Last Admin: 01/10/17 17:45 Dose: 12 units - Objective Vital Signs: Vital Signs Temperature 98.0 F 01/10/17 18:00 Pulse Rate 86 01/10/17 18:00 Respiratory Rate 18 01/10/17 18:00 Blood Pressure 149/78 01/10/17 18:00 O2 Sat by Pulse Oximetry (%) 100 01/10/17 09:00 Constitutional: Yes: No Distress Eyes: Yes: Other (keeps eyes closed at all times) HENT: Yes: WNL Neck: Yes: Supple Cardiovascular: Yes: Regular Rate and Rhythm, S1, S2 Respiratory: Yes: WNL Gastrointestinal: Yes: Normal Bowel Sounds, Soft Genitourinary: Yes: Incontinence Extremities: Yes: WNL Edema: No Integumentary: Yes: WNL Wound/Incision: Yes: Clean/Dry, Dressing Dry and Intact Neurological: Yes: Aphasia ...Motor Strength: WNL Labs: CBC, BMP 01/09/17 06:45 01/09/17 06:45 INR, PTT INR 1.19 (0.82-1.09) H 01/08/17 05:20 Problem List - Problems (1) Hydrocephalus in adult Assessment/Plan: Underwent placement of HOTEL SERVICES SUPERVISOR shunt by . Next few days are crucial to see whether this was the cause of his deterioration Code(s): G91.9 - HYDROCEPHALUS, UNSPECIFIED (2) Brain bleed Code(s): I61.9 - NONTRAUMATIC INTRACEREBRAL HEMORRHAGE, UNSPECIFIED (3) Acute spontaneous intraventricular hemorrhage due to cerebral aneurysm Code(s): I61.5 - NONTRAUMATIC INTRACEREBRAL HEMORRHAGE, INTRAVENTRICULAR I67.1 - CEREBRAL ANEURYSM, NONRUPTURED (4) Afib Assessment/Plan: OFF AC due to inracerebral bleed , f/u CT scans will be required to see stability of the bleed Code(s): I48.91 - UNSPECIFIED ATRIAL FIBRILLATION (5) Diabetes, type 1.5, uncontrolled, managed as type 1 Code(s): E10.65 - TYPE 1 DIABETES MELLITUS WITH HYPERGLYCEMIA (6) Retinopathy due to secondary diabetes Code(s): E13.319 - OTH DIABETES W UNSP DIABETIC RETINOPATHY W/O MACULAR EDEMA (7) Hydrocephalus due to abnormality of flow cerebrospinal fluid Code(s): Q03.8 - OTHER CONGENITAL HYDROCEPHALUS Assessment/Plan Continue to monitor for signs of any infection. Will restart Pradaxa after cleared by surgery.
[2017-01-10] MEDS: CHLORHEXIDINE GLUCONATE 4% CLEANSER FOR DECOLONIZATION TP SCH (22:16)
[2017-01-11] MEDS: INSULIN SLIDING SCALE (NOVOLOG) 1 VIAL SQ SCH ×5 (00:13→22:16)
--- NOTE | 2017-01-11 11:40 | PN ---
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 (short form) - Note 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: 89 M with h/o afib on coumadin, PPM, DM, HTN, HLD, dementia now presenting to ER with 1 month of worsening lethargy and confusion found to have intraventricular hemorrhage on CT and porgressive hydrocephalus, eyes still closed but as per family has had simple verbal output earlier in day off AC FU : POD day 2, may open eyes but still not verbal, family bedside, spoke to NS and plan for slow adjustment of ICP still coghwheeling UE - Current Medication List Current Medications: Active Medications Chlorhexidine Gluconate (Hibiclens For Decolonization -) 1 applic TP HS [facility] Last Admin: 01/09/17 20:59 Dose: Not Given Dextrose/Sodium Chloride (D5-1/2ns -) 1,000 mls @ 75 mls/hr IV ASDIR [facility] Last Admin: 01/10/17 17:46 Dose: Not Given Insulin Aspart (Novolog Vial Sliding Scale -) 1 vial SQ Q6HPO [facility] PRN Reason: Protocol Last Admin: 01/10/17 17:45 Dose: 12 units - Objective Vital Signs: Vital Signs Temperature 97.9 F 01/11/17 06:00 Pulse Rate 83 01/11/17 06:00 Respiratory Rate 18 01/11/17 08:00 Blood Pressure 110/55 01/11/17 06:00 O2 Sat by Pulse Oximetry (%) 100 01/11/17 08:00 Neurological: Yes: Other (eyes closed, noverbal, + tremor and cogwheeling , R >L , inc tone in LE) Labs: CBCD WBC 8.5 K/mm3 (4.0-10.0) 01/09/17 06:45 RBC 4.72 M/mm3 (4.00-5.60) 01/09/17 06:45 Hgb 14.6 GM/dL (11.7-16.9) 01/09/17 06:45 Hct 43.4 % (35.4-49) 01/09/17 06:45 MCV 92.0 fl (80-96) 01/09/17 06:45 MCHC 33.7 g/dl (32.0-35.9) 01/09/17 06:45 RDW 14.0 % (11.9-15.9) 01/09/17 06:45 Plt Count 132 K/MM3 (134-434) L 01/09/17 06:45 MPV 10.3 fl (7.5-11.1) 01/09/17 06:45 CMP Sodium 137 mmol/L (136-145) 01/09/17 06:45 Potassium 3.8 mmol/L (3.5-5.1) 01/09/17 06:45 Chloride 99 mmol/L (98-107) 01/09/17 06:45 Carbon Dioxide 32 mmol/L (21-32) 01/09/17 06:45 Anion Gap 6 (8-16) L 01/09/17 06:45 BUN 7 mg/dL (7-18) D 01/09/17 06:45 Creatinine 0.6 mg/dL (0.7-1.3) L 01/09/17 06:45 Creat Clearance w eGFR > 60 (>60) 01/08/17 05:20 Calcium 8.5 mg/dL (8.5-10.1) 01/09/17 06:45 Total Bilirubin 1.5 mg/dL (0.2-1.0) H D 01/08/17 05:20 AST 27 U/L (15-37) D 01/08/17 05:20 ALT 71 U/L (12-78) D 01/08/17 05:20 Alkaline Phosphatase 75 U/L (45-117) 01/08/17 05:20 Total Protein 6.9 g/dl (6.4-8.2) 01/08/17 05:20 Albumin 3.4 g/dl (3.4-5.0) 01/08/17 05:20 Problem List - Problems (1) Acute spontaneous intraventricular hemorrhage due to cerebral aneurysm Code(s): I61.5 - NONTRAUMATIC INTRACEREBRAL HEMORRHAGE, INTRAVENTRICULAR I67.1 - CEREBRAL ANEURYSM, NONRUPTURED (2) Afib Code(s): I48.91 - UNSPECIFIED ATRIAL FIBRILLATION (3) Hydrocephalus in adult Code(s): G91.9 - HYDROCEPHALUS, UNSPECIFIED Assessment/Plan s/p MAT MACHINE OPERATOR shunt, hydrocephalus , though dementia likely multifactorial, primary dementia, bleed, nph , superimposed parkinsons/vs vascular parkinsonism still poorly arousable but may take few days to adjust to new pressures, NS to FU re shunt parameters will add on Sinemet 25/100TID Dr De Leon Problem List - Problems (1) Acute spontaneous intraventricular hemorrhage due to cerebral aneurysm Code(s): I61.5 - NONTRAUMATIC INTRACEREBRAL HEMORRHAGE, INTRAVENTRICULAR I67.1 - CEREBRAL ANEURYSM, NONRUPTURED (2) Afib Code(s): I48.91 - UNSPECIFIED ATRIAL FIBRILLATION (3) Hydrocephalus in adult Code(s): G91.9 - HYDROCEPHALUS, UNSPECIFIED
--- NOTE | 2017-01-11 13:24 | PN ---
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, Physician History of Present Illness: 89 y/o post TRACTOR SWEEPER OPERATOR shunt who definitely shows being more alert and responsive. Was aphasic but now utters some words which hard to comprehend. Being spoon fed by his daughter and swallowing without cough or any resp. symptoms. Has coarse tremors of his hands , but moving all extremities - Current Medication List Current Medications: Active Medications Carbidopa/Levodopa (Sinemet 25/100 -) 1 each PO TID [facility] Chlorhexidine Gluconate (Hibiclens For Decolonization -) 1 applic TP HS [facility] Last Admin: 01/10/17 22:16 Dose: Not Given Dextrose/Sodium Chloride (D5-1/2ns -) 1,000 mls @ 75 mls/hr IV ASDIR [facility] Last Admin: 01/10/17 17:46 Dose: Not Given Insulin Aspart (Novolog Vial Sliding Scale -) 1 vial SQ Q6HPO [facility] PRN Reason: Protocol Last Admin: 01/11/17 05:58 Dose: 6 units - Objective Vital Signs: Vital Signs Temperature 97.9 F 01/11/17 06:00 Pulse Rate 83 01/11/17 06:00 Respiratory Rate 18 01/11/17 08:00 Blood Pressure 110/55 01/11/17 06:00 O2 Sat by Pulse Oximetry (%) 100 01/11/17 08:00 Constitutional: Yes: No Distress, Calm Eyes: Yes: Conjunctiva Clear HENT: Yes: WNL Neck: Yes: Supple Cardiovascular: Yes: Regular Rate and Rhythm, S1, S2 Respiratory: Yes: Regular, CTA Bilaterally Gastrointestinal: Yes: Normal Bowel Sounds, Soft Genitourinary: Yes: Incontinence Musculoskeletal: Yes: WNL Extremities: Yes: WNL Edema: No Peripheral Pulses WNL: No Peripheral Pulses: Left Radial: 2+, Right Radial: 2+, Left Doralis Pedis: 0, Right Dorsalis Pedis: 0 Wound/Incision: Yes: Clean/Dry, Dressing Dry and Intact Neurological: Yes: Dysarthria ...Motor Strength: WNL (cannot test power but moves all extremities) Labs: CBC, BMP 01/09/17 06:45 01/09/17 06:45 INR, PTT INR 1.19 (0.82-1.09) H 01/08/17 05:20 - ....Imaging Cat Scan: Report Reviewed Problem List - Problems (1) Hydrocephalus in adult Assessment/Plan: NPH which definitely was worse after comparing to old CT scan of brain. TRACTOR SWEEPER OPERATOR shunt placed as thee was no other etiology for his worsening CMS. Decision was made to ple a TRACTOR SWEEPER OPERATOR shunt and his condition has improved. Code(s): G91.9 - HYDROCEPHALUS, UNSPECIFIED (2) Brain bleed Assessment/Plan: Blood in the ventricles has not changed compared to serial CT of brain Code(s): I61.9 - NONTRAUMATIC INTRACEREBRAL HEMORRHAGE, UNSPECIFIED (3) Acute spontaneous intraventricular hemorrhage due to cerebral aneurysm Code(s): I61.5 - NONTRAUMATIC INTRACEREBRAL HEMORRHAGE, INTRAVENTRICULAR I67.1 - CEREBRAL ANEURYSM, NONRUPTURED (4) Diabetes, type 1.5, uncontrolled, managed as type 1 Assessment/Plan: Coverage with Reg Insulin adjusted as BGM high Code(s): E10.65 - TYPE 1 DIABETES MELLITUS WITH HYPERGLYCEMIA (5) Retinopathy due to secondary diabetes Code(s): E13.319 - OTH DIABETES W UNSP DIABETIC RETINOPATHY W/O MACULAR EDEMA (6) Hydrocephalus due to abnormality of flow cerebrospinal fluid Code(s): Q03.8 - OTHER CONGENITAL HYDROCEPHALUS Assessment/Plan Being fed small amounts of puree food which he is ingesting without any difficulty. Opens his eyes periodically. Definite improvement in clinical signs which may be due to TRACTOR SWEEPER OPERATOR shunt, as his condition was deteriorating prior to placement of the shunt.
[2017-01-11] MEDS: CARBIDOPA/LEVODOPA 25/100 TABLET (FP) PO SCH ×2 (13:55→22:41)
[2017-01-11] MEDS: DEXTROSE 5%-0.45% SALINE 1,000 ML IV SCH (17:45)
--- NOTE | 2017-01-11 19:34 | PN ---
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, Physician Chief Complaint: Pt, with dressing covering head, is lethargic, but opened eyes several times today and said a few words (per family, whose members have been at the bedside all day). History of Present Illness: Mr. Schaefer is an 89 yo male (b. Chary) with a significant past medical history of paroxysmal AF on coumadin, pacemaker, DM who presents to the emergency department with a decline over the last month and a half from able to walk with a walker and baseline respond to unable to ambulate with cognitive disorientation. Daughter visited this AM and called PCP on noticing decline and was recommended to come in. Allergies: NKDA Past surgical history: hip replacement and pacemaker placement PMD - Paolo Card - Current Medication List Current Medications: Active Medications Carbidopa/Levodopa (Sinemet 25/100 -) 1 each PO TID [facility] Last Admin: 01/11/17 13:55 Dose: Not Given Chlorhexidine Gluconate (Hibiclens For Decolonization -) 1 applic TP HS [facility] Last Admin: 01/10/17 22:16 Dose: Not Given Dextrose/Sodium Chloride (D5-1/2ns -) 1,000 mls @ 75 mls/hr IV ASDIR [facility] Last Admin: 01/10/17 17:46 Dose: Not Given Insulin Aspart (Novolog Vial Sliding Scale -) 1 vial SQ ACHS [facility] PRN Reason: Protocol Last Admin: 01/11/17 13:54 Dose: 8 unit - Objective Vital Signs: Vital Signs Temperature 99.4 F 01/11/17 17:00 Pulse Rate 76 01/11/17 17:00 Respiratory Rate 20 01/11/17 17:00 Blood Pressure 124/54 01/11/17 17:00 O2 Sat by Pulse Oximetry (%) 100 01/11/17 08:00 Labs: CBC, BMP 01/09/17 06:45 01/09/17 06:45 INR, PTT INR 1.19 (0.82-1.09) H 01/08/17 05:20 Problem List - Problems (1) Acute spontaneous intraventricular hemorrhage due to cerebral aneurysm Assessment/Plan: s/p TELECOM MANAGER shunt. F/u with neurosurgeon, neurologist. Now on anti-Parkinson agent (Sinamet). Code(s): I61.5 - NONTRAUMATIC INTRACEREBRAL HEMORRHAGE, INTRAVENTRICULAR I67.1 - CEREBRAL ANEURYSM, NONRUPTURED (2) Hydrocephalus in adult Code(s): G91.9 - HYDROCEPHALUS, UNSPECIFIED (3) Retinopathy due to secondary diabetes Code(s): E13.319 - OTH DIABETES W UNSP DIABETIC RETINOPATHY W/O MACULAR EDEMA (4) Dementia Code(s): F03.90 - UNSPECIFIED DEMENTIA WITHOUT BEHAVIORAL DISTURBANCE (5) Paroxysmal a-fib Assessment/Plan: Controlled HR presently without AV conduction blockers. Code(s): I48.0 - PAROXYSMAL ATRIAL FIBRILLATION
[2017-01-11] MEDS: CHLORHEXIDINE GLUCONATE 4% CLEANSER FOR DECOLONIZATION TP SCH (21:33)
[2017-01-12] MEDS: DEXTROSE 5%-0.45% SALINE 1,000 ML IV SCH ×2 (02:30→16:00)
[2017-01-12] MEDS: CARBIDOPA/LEVODOPA 25/100 TABLET (FP) PO SCH ×2 (05:28→16:00)
[2017-01-12] MEDS: INSULIN SLIDING SCALE (NOVOLOG) 1 VIAL SQ SCH ×4 (06:13→21:48)
--- NOTE | 2017-01-12 10:53 | PN ---
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 (short form) - Note 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: Patient seen and examined. Dressings are clean dry and intact. Discussed patient's current status and course of care with daughter (Rupal) and granddaughter. Patient is making slow progress in terms of level of arousal and interaction. Sitting up has allowed slight improvement possible from increased CSF flow through the shunt. Patient no longer has low grade fever. I interrogated the shunt valve and found it was at the correct setting of 2.5 and made a change to 2.0 to increase CSF diversion. The patient is able to speak several sentences with his family in [facility] and is able to acknowledge that he doesn't understand some statements in [place]. His speech is more articulate and appropriate. He has increased periods of eye opening and family feels that he is achieving levels of interaction that were not possible before the surgery. I again explained my concerns about overdrainage and the risks of subdural hematoma and that my preferred strategy is for gradual pressure changes over time. Family asks intelligent questions and has good insight into his condition. Patient may be out of bed with nursing/Physical Therapy assistance and adherence to high risk fall policies. Family will contact my office to arrange skin clip removal 2 weeks after surgery. All questions were answered. Patient may be discharged to home/SNF from Neurosurgery standpoint. Anticoagulation may be restarted if required.
--- NOTE | 2017-01-12 16:23 | PN ---
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 (short form) - Note 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: 89 M with h/o afib on coumadin, PPM, DM, HTN, HLD, dementia now presenting to ER with 1 month of worsening lethargy and confusion found to have intraventricular hemorrhage on CT and porgressive hydrocephalus, eyes still closed but as per family has had simple verbal output earlier in day off AC FU : POD day 3, more awake as per family, answering basic questions , seen by NS family deferred starting Sinemet - Current Medication List Current Medications: Active Medications Chlorhexidine Gluconate (Hibiclens For Decolonization -) 1 applic TP [facility] Last Admin: 01/09/17 20:59 Dose: Not Given Dextrose/Sodium Chloride (D5-1/2ns -) 1,000 mls @ 75 mls/hr IV [facility] Last Admin: 01/10/17 17:46 Dose: Not Given Insulin Aspart (Novolog Vial Sliding Scale -) 1 vial SQ Q6HPO [facility] PRN Reason: Protocol Last Admin: 01/10/17 17:45 Dose: 12 units - Objective Vital Signs: Vital Signs Temperature 99.0 F 01/12/17 14:00 Pulse Rate 82 01/12/17 14:00 Respiratory Rate 22 01/12/17 09:00 Blood Pressure 144/71 01/12/17 14:00 O2 Sat by Pulse Oximetry (%) 99 01/12/17 09:00 Neurological: Yes: Other (eyes closed, noverbal, + tremor and cogwheeling , R >L , inc tone in LE) Labs: 01/09/17 06:45 01/09/17 06:45 Problem List - Problems (1) Acute spontaneous intraventricular hemorrhage due to cerebral aneurysm Code(s): I61.5 - NONTRAUMATIC INTRACEREBRAL HEMORRHAGE, INTRAVENTRICULAR I67.1 - CEREBRAL ANEURYSM, NONRUPTURED (2) Afib Code(s): I48.91 - UNSPECIFIED ATRIAL FIBRILLATION (3) Hydrocephalus in adult Code(s): G91.9 - HYDROCEPHALUS, UNSPECIFIED Assessment/Plan s/p ASSOCIATE PROFESSOR OF PHYSICS shunt, hydrocephalus , though dementia likely multifactorial, primary dementia, bleed, nph , superimposed parkinsons/vs vascular parkinsonism more awake and responsive s/p shunt NS to FU re shunt parameters will consider add on Sinemet 25/100TID as outpt rehab eval Dr De Leon Problem List - Problems (1) Acute spontaneous intraventricular hemorrhage due to cerebral aneurysm Code(s): I61.5 - NONTRAUMATIC INTRACEREBRAL HEMORRHAGE, INTRAVENTRICULAR I67.1 - CEREBRAL ANEURYSM, NONRUPTURED (2) Afib Code(s): I48.91 - UNSPECIFIED ATRIAL FIBRILLATION (3) Hydrocephalus in adult Code(s): G91.9 - HYDROCEPHALUS, UNSPECIFIED
--- NOTE | 2017-01-12 20:52 | PN ---
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, Physician History of Present Illness: More alert today and as he speaks only Belgian I asked him if he was hungry and replied he doesn't have to eat right now. Asked if any headache he said no and words were not slurred. He has been opening his eyes more often and moves all his extremities. Dr. De Leon's note about family's reluctance to start him on Sinemet. As per nursing family gave him some soup which he was able to have. - Current Medication List Current Medications: Active Medications Carbidopa/Levodopa (Sinemet 25/100 -) 1 each PO TID [facility] Last Admin: 01/12/17 16:00 Dose: Not Given Chlorhexidine Gluconate (Hibiclens For Decolonization -) 1 applic TP HS [facility] Last Admin: 01/11/17 21:33 Dose: Not Given Dextrose/Sodium Chloride (D5-1/2ns -) 1,000 mls @ 75 mls/hr IV ASDIR [facility] Last Admin: 01/12/17 16:00 Dose: 75 mls/hr Insulin Aspart (Novolog Vial Sliding Scale -) 1 vial SQ ACHS [facility] PRN Reason: Protocol Last Admin: 01/12/17 18:16 Dose: 8 unit - Objective Vital Signs: Vital Signs Temperature 98.7 F 01/12/17 17:00 Pulse Rate 75 01/12/17 17:00 Respiratory Rate 20 01/12/17 17:00 Blood Pressure 148/64 01/12/17 17:00 O2 Sat by Pulse Oximetry (%) 99 01/12/17 09:00 Constitutional: Yes: Calm Eyes: Yes: Conjunctiva Clear HENT: Yes: WNL Neck: Yes: Supple Cardiovascular: Yes: Regular Rate and Rhythm, S1, S2 Respiratory: Yes: Regular, CTA Bilaterally Gastrointestinal: Yes: Normal Bowel Sounds, Soft Genitourinary: Yes: Incontinence Musculoskeletal: Yes: WNL Extremities: Yes: WNL Edema: No Wound/Incision: Yes: Clean/Dry Neurological: Yes: Alert Psychiatric: Yes: Alert Labs: CBC, BMP 01/09/17 06:45 01/09/17 06:45 INR, PTT INR 1.19 (0.82-1.09) H 01/08/17 05:20 Problem List - Problems (1) Hydrocephalus in adult Assessment/Plan: After placement of DRILL PRESS SET UP OPERATOR RADIAL shunt there has been definite improvement in his clinical Code(s): G91.9 - HYDROCEPHALUS, UNSPECIFIED (2) Brain bleed Code(s): I61.9 - NONTRAUMATIC INTRACEREBRAL HEMORRHAGE, UNSPECIFIED (3) Acute spontaneous intraventricular hemorrhage due to cerebral aneurysm Code(s): I61.5 - NONTRAUMATIC INTRACEREBRAL HEMORRHAGE, INTRAVENTRICULAR I67.1 - CEREBRAL ANEURYSM, NONRUPTURED (4) Dementia Assessment/Plan: There is no agitation Code(s): F03.90 - UNSPECIFIED DEMENTIA WITHOUT BEHAVIORAL DISTURBANCE (5) Anticoagulated on Coumadin Assessment/Plan: AC being held due to intracerebral bleed. Code(s): Z51.81 - ENCOUNTER FOR THERAPEUTIC DRUG LEVEL MONITORING Z79.01 - ALF (CURRENT) USE OF ANTICOAGULANTS (6) Paroxysmal a-fib Assessment/Plan: VR continues to be well controlled Code(s): I48.0 - PAROXYSMAL ATRIAL FIBRILLATION (7) Diabetes 1.5, managed as type 1 Assessment/Plan: Being given IV hydration and being covered with Reg INsulin till his PO intake improves Code(s): E10.9 - TYPE 1 DIABETES MELLITUS WITHOUT COMPLICATIONS Assessment/Plan Continue to monitor BGM and Reg Insulin coverage. Continue to monitor FLEET MANAGER and hopefully will continue to improve as in the past two dqys. Discharge planning : Plan is to place him in a SNF facility when stable
[2017-01-12] MEDS: CHLORHEXIDINE GLUCONATE 4% CLEANSER FOR DECOLONIZATION TP SCH (21:46)
[2017-01-13] MEDS: INSULIN SLIDING SCALE (NOVOLOG) 1 VIAL SQ SCH ×4 (06:38→21:53)
[2017-01-13 08:10] LABS: BASOPHIL 0.5 % (0-2.0); EOSINOPHIL 2.3 % (0-4.5); MCH 30.5 pg (25.7-33.7); MCHC 33.3 g/dl (32.0-35.9); MEAN CELL VOLUME 91.6 fl (80-96); NEUTROPHILS 68.4 % (42.8-82.8); WHITE BLOOD COUNT 11.6 K/mm3 (4.0-10.0)
[2017-01-13 08:35] LABS: ALBUMIN 2.7 g/dl (3.4-5.0); ANION GAP 10 (8-16); CALCIUM 8.1 mg/dL (8.5-10.1); CO2 32 mmol/L (21-32); GLUCOSE,RANDOM 237 mg/dL (74-106)
[2017-01-13 08:39] LABS: ALK PHOS 67 U/L (45-117); BILIRUBIN,TOTAL 1.1 mg/dL (0.2-1.0); CREATININE 0.5 mg/dL (0.7-1.3); SGOT/AST 35 U/L (15-37); SGPT/ALT 37 U/L (12-78); TOT PROT 5.9 g/dl (6.4-8.2)
[2017-01-13 09:07] LABS: PLATELET COMMENT2 NO CLOTTING DETECTED; PLATELET COMMENT3 FEW LARGE PLTS; PLATELET COUNT 150 K/MM3 (134-434); PLATELET ESTIMATE ADEQUATE (NORMAL)
[2017-01-13] MEDS ORDERED: D5-1/2NS+20 MEQ KCL - 1,000 ML IV SCH (13:15)
--- NOTE | 2017-01-13 15:45 | PN ---
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 (short form) - Note 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: 89 M with h/o afib on coumadin, PPM, DM, HTN, HLD, dementia now presenting to ER with 1 month of worsening lethargy and confusion found to have intraventricular hemorrhage on CT and porgressive hydrocephalus, eyes still closed but as per family has had simple verbal output earlier in day off AC FU : POD day 4, more awake as per family, answering basic questions , seen by NS on family deferred starting Sinemet - Current Medication List Current Medications: Active Medications Chlorhexidine Gluconate (Hibiclens For Decolonization -) 1 applic TP HS [facility] Last Admin: 01/09/17 20:59 Dose: Not Given Dextrose/Sodium Chloride (D5-1/2ns -) 1,000 mls @ 75 mls/hr IV ASDIR [facility] Last Admin: 01/10/17 17:46 Dose: Not Given Insulin Aspart (Novolog Vial Sliding Scale -) 1 vial SQ Q6HPO [facility] PRN Reason: Protocol Last Admin: 01/10/17 17:45 Dose: 12 units - Objective Vital Signs: Vital Signs Temperature 99.0 F 01/13/17 14:02 Pulse Rate 78 01/13/17 14:02 Respiratory Rate 18 01/13/17 14:02 Blood Pressure 120/52 01/13/17 14:02 O2 Sat by Pulse Oximetry (%) 98 01/13/17 10:30 Neurological: Yes: Other (eyes closed, noverbal, + tremor and cogwheeling , R >L , inc tone in LE) Labs: CBCD WBC 11.6 K/mm3 (4.0-10.0) H D 01/13/17 07:00 RBC 4.34 M/mm3 (4.00-5.60) 01/13/17 07:00 Hgb 13.2 GM/dL (11.7-16.9) 01/13/17 07:00 Hct 39.7 % (35.4-49) 01/13/17 07:00 MCV 91.6 fl (80-96) 01/13/17 07:00 MCHC 33.3 g/dl (32.0-35.9) 01/13/17 07:00 RDW 14.0 % (11.9-15.9) 01/13/17 07:00 Plt Count 150 K/MM3 (134-434) 01/13/17 07:00 MPV 11.0 fl (7.5-11.1) 01/13/17 07:00 CMP Sodium 139 mmol/L (136-145) 01/13/17 07:00 Potassium 3.2 mmol/L (3.5-5.1) L 01/13/17 07:00 Chloride 97 mmol/L (98-107) L 01/13/17 07:00 Carbon Dioxide 32 mmol/L (21-32) 01/13/17 07:00 Anion Gap 10 (8-16) 01/13/17 07:00 BUN 6 mg/dL (7-18) L 01/13/17 07:00 Creatinine 0.5 mg/dL (0.7-1.3) L 01/13/17 07:00 Creat Clearance w eGFR > 60 (>60) 01/13/17 07:00 Calcium 8.1 mg/dL (8.5-10.1) L 01/13/17 07:00 Total Bilirubin 1.1 mg/dL (0.2-1.0) H D 01/13/17 07:00 AST 35 U/L (15-37) D 01/13/17 07:00 ALT 37 U/L (12-78) D 01/13/17 07:00 Alkaline Phosphatase 67 U/L (45-117) 01/13/17 07:00 Total Protein 5.9 g/dl (6.4-8.2) L 01/13/17 07:00 Albumin 2.7 g/dl (3.4-5.0) L D 01/13/17 07:00 Problem List - Problems (1) Acute spontaneous intraventricular hemorrhage due to cerebral aneurysm Code(s): I61.5 - NONTRAUMATIC INTRACEREBRAL HEMORRHAGE, INTRAVENTRICULAR I67.1 - CEREBRAL ANEURYSM, NONRUPTURED (2) Afib Code(s): I48.91 - UNSPECIFIED ATRIAL FIBRILLATION (3) Hydrocephalus in adult Code(s): G91.9 - HYDROCEPHALUS, UNSPECIFIED Assessment/Plan s/p FLUE TILE PRESS OPERATOR shunt, hydrocephalus , though dementia likely multifactorial, primary dementia, bleed, nph , superimposed parkinsons/vs vascular parkinsonism more awake and responsive s/p shunt NS to FU re shunt parameters will consider add on Sinemet 25/100TID as outpt rehab eval Dr De Leon Problem List - Problems (1) Acute spontaneous intraventricular hemorrhage due to cerebral aneurysm Code(s): I61.5 - NONTRAUMATIC INTRACEREBRAL HEMORRHAGE, INTRAVENTRICULAR I67.1 - CEREBRAL ANEURYSM, NONRUPTURED (2) Afib Code(s): I48.91 - UNSPECIFIED ATRIAL FIBRILLATION (3) Hydrocephalus in adult Code(s): G91.9 - HYDROCEPHALUS, UNSPECIFIED
--- NOTE | 2017-01-13 18:14 | PN ---
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, Physician Chief Complaint: Pt asleep; earlier, per daughter, he had eyes open, was moving hands. History of Present Illness: Mr. Schaefer is an 89 yo male (b. [place]) with a significant past medical history of paroxysmal AF on coumadin, pacemaker, DM, who presents to the emergency department with a decline over the last month and a half from able to walk with a walker and baseline respond to unable to ambulate with cognitive disorientation. Daughter visited this AM and called PCP on noticing decline and was recommended to come in. Allergies: NKDA Past surgical history: hip replacement and pacemaker placement PMD - Paolo Card - Current Medication List Current Medications: Active Medications Carbidopa/Levodopa (Sinemet 25/100 -) 1 each PO TID [facility] Last Admin: 01/12/17 16:00 Dose: Not Given Chlorhexidine Gluconate (Hibiclens For Decolonization -) 1 applic TP HS [facility] Last Admin: 01/12/17 21:46 Dose: Not Given Potassium Chloride/Dextrose/Sod Cl (D5-1/2ns+20 Meq Kcl -) 1,000 mls @ 75 mls/ hr IV ASDIR [facility] Last Admin: 01/13/17 14:00 Dose: 75 mls/hr Insulin Aspart (Novolog Vial Sliding Scale -) 1 vial SQ ACHS [facility] PRN Reason: Protocol Last Admin: 01/13/17 12:47 Dose: 8 unit - Objective Vital Signs: Vital Signs Temperature 99.0 F 01/13/17 14:02 Pulse Rate 78 01/13/17 14:02 Respiratory Rate 18 01/13/17 14:02 Blood Pressure 120/52 01/13/17 14:02 O2 Sat by Pulse Oximetry (%) 98 01/13/17 10:30 Constitutional: Yes: Well Nourished Eyes: Yes: WNL Neck: Yes: WNL Cardiovascular: Yes: Pulse Irregular, S2 (split) Gastrointestinal: Yes: Soft Genitourinary: No: Anuria Musculoskeletal: Yes: Muscle Weakness Extremities: Yes: Cool Edema: No Peripheral Pulses WNL: No Peripheral Pulses: Left Doralis Pedis: 1+, Right Dorsalis Pedis: 1+ Integumentary: Yes: Incision Wound/Incision: Yes: Clean/Dry Neurological: Yes: Weakness Psychiatric: Yes: Other Labs: CBC, BMP 01/13/17 07:00 01/13/17 07:00 INR, PTT INR 1.19 (0.82-1.09) H 01/08/17 05:20 - ....Imaging Other: Image Reviewed (telemetry: ventricular pacing) Problem List - Problems (1) Acute spontaneous intraventricular hemorrhage due to cerebral aneurysm Assessment/Plan: s/p LAYER OUT shunt. F/u with neurosurgeon, neurologist. Family understands that progress, if any, will likely be slow Code(s): I61.5 - NONTRAUMATIC INTRACEREBRAL HEMORRHAGE, INTRAVENTRICULAR I67.1 - CEREBRAL ANEURYSM, NONRUPTURED (2) Hydrocephalus in adult Code(s): G91.9 - HYDROCEPHALUS, UNSPECIFIED (3) Retinopathy due to secondary diabetes Code(s): E13.319 - OTH DIABETES W UNSP DIABETIC RETINOPATHY W/O MACULAR EDEMA (4) Dementia Code(s): F03.90 - UNSPECIFIED DEMENTIA WITHOUT BEHAVIORAL DISTURBANCE (5) Paroxysmal a-fib Assessment/Plan: Controlled HR presently without AV conduction blockers. ECHO: limited study; normal LVEF and LV size. Code(s): I48.0 - PAROXYSMAL ATRIAL FIBRILLATION
--- NOTE | 2017-01-13 18:14 | PN ---
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, Physician Chief Complaint: Pt moves hands spontaneously, opens eyes occasionally; mumbles words at times, though does not hold conversation or follow commands; daughter feeds him. History of Present Illness: Mr. Schaefer is an 89 yo male (b. [place]) with a significant past medical history of paroxysmal AF on coumadin, pacemaker, DM, who presents to the emergency department with a decline over the last month and a half from able to walk with a walker and baseline respond to unable to ambulate with cognitive disorientation. Daughter visited this AM and called PCP on noticing decline and was recommended to come in. Allergies: NKDA Past surgical history: hip replacement and pacemaker placement PMD - Paolo Card - Current Medication List Current Medications: Active Medications Carbidopa/Levodopa (Sinemet 25/100 -) 1 each PO TID [facility] Last Admin: 01/12/17 16:00 Dose: Not Given Chlorhexidine Gluconate (Hibiclens For Decolonization -) 1 applic TP HS [facility] Last Admin: 01/12/17 21:46 Dose: Not Given Potassium Chloride/Dextrose/Sod Cl (D5-1/2ns+20 Meq Kcl -) 1,000 mls @ 75 mls/ hr IV ASDIR [facility] Last Admin: 01/13/17 14:00 Dose: 75 mls/hr Insulin Aspart (Novolog Vial Sliding Scale -) 1 vial SQ ACHS [facility] PRN Reason: Protocol Last Admin: 01/13/17 12:47 Dose: 8 unit - Objective Vital Signs: Vital Signs Temperature 99.0 F 01/13/17 14:02 Pulse Rate 78 01/13/17 14:02 Respiratory Rate 18 01/13/17 14:02 Blood Pressure 120/52 01/13/17 14:02 O2 Sat by Pulse Oximetry (%) 98 01/13/17 10:30 Constitutional: Yes: Other Eyes: Yes: WNL HENT: Yes: WNL Neck: Yes: WNL Cardiovascular: Yes: S1 (varies in intensity), S2 (split) Respiratory: Yes: Regular Gastrointestinal: Yes: Soft Genitourinary: No: Anuria Extremities: Yes: Cool Edema: No Peripheral Pulses WNL: No Peripheral Pulses: Left Doralis Pedis: 1+, Right Dorsalis Pedis: 1+ Integumentary: Yes: Incision, Other (dressing right anterior neck) Wound/Incision: Yes: Dressing Dry and Intact Neurological: Yes: Weakness, Other Psychiatric: Yes: Other (hx dementia) Labs: CBC, BMP 01/13/17 07:00 01/13/17 07:00 INR, PTT INR 1.19 (0.82-1.09) H 01/08/17 05:20 - ....Imaging EKG: Image Reviewed (atrial and ventricular pacing) Problem List - Problems (1) Acute spontaneous intraventricular hemorrhage due to cerebral aneurysm Assessment/Plan: s/p TRUCK REPAIR SERVICE ESTIMATOR shunt. F/u with neurosurgeon, neurologist. Code(s): I61.5 - NONTRAUMATIC INTRACEREBRAL HEMORRHAGE, INTRAVENTRICULAR I67.1 - CEREBRAL ANEURYSM, NONRUPTURED (2) Hydrocephalus in adult Code(s): G91.9 - HYDROCEPHALUS, UNSPECIFIED (3) Dementia Code(s): F03.90 - UNSPECIFIED DEMENTIA WITHOUT BEHAVIORAL DISTURBANCE (4) Paroxysmal a-fib Assessment/Plan: Controlled HR presently without AV conduction blockers. ECHO: limited study; normal LVEF and LV size. Code(s): I48.0 - PAROXYSMAL ATRIAL FIBRILLATION (5) Diabetes Assessment/Plan: consider lisinopril (DM; occasional hypokalemia). Code(s): E11.9 - TYPE 2 DIABETES MELLITUS WITHOUT COMPLICATIONS
[2017-01-13] MEDS: CHLORHEXIDINE GLUCONATE 4% CLEANSER FOR DECOLONIZATION TP SCH (21:16)
--- NOTE | 2017-01-13 21:43 | PN ---
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, Physician History of Present Illness: Continues to be lethargic but opens his eyes when tapped on the shoulder. Has been taking small amount of food and IV hydration is maintained. - Current Medication List Current Medications: Active Medications Carbidopa/Levodopa (Sinemet 25/100 -) 1 each PO TID [facility] Last Admin: 01/12/17 16:00 Dose: Not Given Chlorhexidine Gluconate (Hibiclens For Decolonization -) 1 applic TP HS [facility] Last Admin: 01/13/17 21:16 Dose: Not Given Potassium Chloride/Dextrose/Sod Cl (D5-1/2ns+20 Meq Kcl -) 1,000 mls @ 75 mls/ hr IV ASDIR [facility] Last Admin: 01/13/17 14:00 Dose: 75 mls/hr Insulin Aspart (Novolog Vial Sliding Scale -) 1 vial SQ ACHS [facility] PRN Reason: Protocol Last Admin: 01/13/17 18:12 Dose: 12 unit - Objective Vital Signs: Vital Signs Temperature 98 F 01/13/17 21:08 Pulse Rate 80 01/13/17 21:08 Respiratory Rate 20 01/13/17 21:08 Blood Pressure 105/50 01/13/17 21:08 O2 Sat by Pulse Oximetry (%) 98 01/13/17 10:30 Constitutional: Yes: No Distress, Calm Eyes: Yes: EOM Intact HENT: Yes: WNL Neck: Yes: Supple Cardiovascular: Yes: Regular Rate and Rhythm, S1, S2 Respiratory: Yes: CTA Bilaterally Gastrointestinal: Yes: Normal Bowel Sounds, Soft Genitourinary: Yes: Incontinence Musculoskeletal: Yes: WNL Extremities: Yes: WNL Edema: No Peripheral Pulses WNL: No Peripheral Pulses: Left Doralis Pedis: 0, Right Dorsalis Pedis: 0 Integumentary: Yes: WNL Neurological: Yes: Dysarthria ...Motor Strength: WNL Labs: CBC, BMP 01/13/17 07:00 01/13/17 07:00 INR, PTT INR 1.19 (0.82-1.09) H 01/08/17 05:20 Problem List - Problems (1) Hydrocephalus in adult Assessment/Plan: DELON Lao adjusted the pressure in the valve. Code(s): G91.9 - HYDROCEPHALUS, UNSPECIFIED (2) Brain bleed Assessment/Plan: Clinically appears to be improving very slowly and difficult to say how much improvement will be there. Code(s): I61.9 - NONTRAUMATIC INTRACEREBRAL HEMORRHAGE, UNSPECIFIED (3) Acute spontaneous intraventricular hemorrhage due to cerebral aneurysm Code(s): I61.5 - NONTRAUMATIC INTRACEREBRAL HEMORRHAGE, INTRAVENTRICULAR I67.1 - CEREBRAL ANEURYSM, NONRUPTURED (4) Dementia Code(s): F03.90 - UNSPECIFIED DEMENTIA WITHOUT BEHAVIORAL DISTURBANCE (5) Anticoagulated on Coumadin Assessment/Plan: Will discuss with neurology about restarting AC for AFIB Code(s): Z51.81 - ENCOUNTER FOR THERAPEUTIC DRUG LEVEL MONITORING Z79.01 - SKILLED NURSING (CURRENT) USE OF ANTICOAGULANTS (6) Paroxysmal a-fib Code(s): I48.0 - PAROXYSMAL ATRIAL FIBRILLATION (7) Diabetes 1.5, managed as type 1 Assessment/Plan: BGM are high due to IV fluids as PO intake is poor. Code(s): E10.9 - TYPE 1 DIABETES MELLITUS WITHOUT COMPLICATIONS Assessment/Plan Continue to monitor next 48 hours specially because of PO intake and whether to consider a PEG
--- NOTE | 2017-01-13 21:47 | PN ---
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 (short form) - Note 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: Patient was more interactive with his family since change of shunt pressure setting from 2.5 to 2.0 (increasing drainage/decreasing resistance). Patient was able to eat soup and answer questions from his family and kissed his . Dressings are clean, dry and intact. I plan CT of the Head on the morning of Friday, January 14, 2017 and will potentially change the setting to 1.5 I am balancing the risks of overdrainage with the desire to improve the NPH component of his dementia. I agree with Dr. De Leon that the dementia is likely multifactorial and additional evaluation and treatment may be beneficial. I anticipate that the patient will be able to go to SNF very soon. All future pressure changes will be made at increasing intervals to prevent overdrainage. The family feels that he has achieved a number of milestones of cognition and interaction which were not possible prior to the surgery.
[2017-01-14] MEDS: INSULIN SLIDING SCALE (NOVOLOG) 1 VIAL SQ SCH ×5 (06:11→23:04)
[2017-01-14 07:44] LABS: ALBUMIN 2.6 g/dl (3.4-5.0); ALK PHOS 67 U/L (45-117); ANION GAP 11 (8-16); CALCIUM 8.1 mg/dL (8.5-10.1); CO2 30 mmol/L (21-32); CREATININE 0.5 mg/dL (0.7-1.3); GLUCOSE,RANDOM 243 mg/dL (74-106); SGOT/AST 24 U/L (15-37); SGPT/ALT 34 U/L (12-78); TOT PROT 5.9 g/dl (6.4-8.2)
[2017-01-14] MEDS ORDERED: D5-1/2NS+20 MEQ KCL - 1,000 ML IV SCH (09:30)
--- NOTE | 2017-01-14 10:44 | PN ---
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, FINANCIAL INTERN - Note 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: s/p shunt. Daughter served as business planning director in [place]. Increase in some social speech and occasional phrases reported by family. Aphasia suspected with mostly jargon with occasional string of intelligible,tangential phrases unrelated to question or situation. Not dysarthria. Suspect apraxia as well. Not following commands consistently or responding to y/n questions. Pt is also visually impaired and quite CIRCLE. Pt with oral apraxia,unable to achieve bilabial closure to remove puree of spoon , close lips around cup to drink, bite a cracker, draw from a straw. Pt was able to chew a cracker placed in his mouth and drink thin water from a cup, with delayed but brisk swallow. Suggest: Trial of dysphagia whole with chopped meat. Single sips of thin liquid. If cough, comngestioin,fever, MBS and downgrade to puree/nectar. Rehab consult/PT/consider [facility]?
[2017-01-14] MEDS ORDERED: INSULIN (NOVOLOG) ASPART 100 UNITS/ML 10ML VIAL ONE (11:48)
--- NOTE | 2017-01-14 18:45 | PN ---
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 (short form) - Note 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: 89 M with h/o afib on coumadin, PPM, DM, HTN, HLD, dementia now presenting to ER with 1 month of worsening lethargy and confusion found to have intraventricular hemorrhage on CT and progressive hydrocephalus, now s/p POSTAL INSPECTOR shunting. FU : POD day 5, clearly more awake as per family, answering basic questions , he is able to sit up now without being propped up for brief periods of time. Having dinner. Tone remains increased in both legs but less so in arms than prior to shunting. - Will d/w family placement on Levodopa, it may help decrease tone(if Dr. Stark agrees). Stan Mackenzie MD
--- NOTE | 2017-01-14 22:04 | PN ---
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, Physician History of Present Illness: Continues to respond to name calling but aphasic. Does not open his eyes. As per nursing did eat during dinner. Continues to have cog wheel rigidity and per nursing also very rigid while being moved in bed which all suggest Parkinson"s and may benefit from Sinemet but family very reluctant and did explain that condition may improve with such medication. - Current Medication List Current Medications: Active Medications Carbidopa/Levodopa (Sinemet 25/100 -) 1 each PO TID [facility] Last Admin: 01/12/17 16:00 Dose: Not Given Insulin Aspart (Novolog Vial Sliding Scale -) 1 vial SQ ACHS [facility] PRN Reason: Protocol Last Admin: 01/14/17 16:41 Dose: 12 unit - Objective Vital Signs: Vital Signs Temperature 99.5 F 01/14/17 21:21 Pulse Rate 82 01/14/17 21:21 Respiratory Rate 20 01/14/17 21:21 Blood Pressure 116/60 01/14/17 21:21 O2 Sat by Pulse Oximetry (%) 99 01/14/17 10:43 Constitutional: Yes: No Distress, Calm Eyes: Yes: Other (closed at all times) HENT: Yes: WNL Neck: Yes: Supple Cardiovascular: Yes: Regular Rate and Rhythm, S1, S2 Respiratory: Yes: Regular, CTA Bilaterally Gastrointestinal: Yes: Normal Bowel Sounds, Soft Genitourinary: Yes: Incontinence Edema: No Integumentary: Yes: WNL Neurological: Yes: Aphasia, Dysarthria, Other (cogwheel rigidity of upper extremities) ...Motor Strength: WNL Labs: CBC, BMP 01/13/17 07:00 01/14/17 05:35 INR, PTT INR 1.19 (0.82-1.09) H 01/08/17 05:20 Problem List - Problems (1) Hydrocephalus in adult Assessment/Plan: Repeat CT did not show change in the amount of blood in th ventricle Code(s): G91.9 - HYDROCEPHALUS, UNSPECIFIED (2) Brain bleed Assessment/Plan: Amount of blood remains the same Code(s): I61.9 - NONTRAUMATIC INTRACEREBRAL HEMORRHAGE, UNSPECIFIED (3) Acute spontaneous intraventricular hemorrhage due to cerebral aneurysm Code(s): I61.5 - NONTRAUMATIC INTRACEREBRAL HEMORRHAGE, INTRAVENTRICULAR I67.1 - CEREBRAL ANEURYSM, NONRUPTURED (4) Dementia Code(s): F03.90 - UNSPECIFIED DEMENTIA WITHOUT BEHAVIORAL DISTURBANCE Qualifiers: Dementia type: other frontotemporal dementia (5) Anticoagulated on Coumadin Code(s): Z51.81 - ENCOUNTER FOR THERAPEUTIC DRUG LEVEL MONITORING Z79.01 - ELECTROPHYSIOLOGIST (CURRENT) USE OF ANTICOAGULANTS (6) Paroxysmal a-fib Code(s): I48.0 - PAROXYSMAL ATRIAL FIBRILLATION (7) Diabetes 1.5, managed as type 1 Assessment/Plan: He is on IV fluid BGM with reg.Insulin coverage Code(s): E10.9 - TYPE 1 DIABETES MELLITUS WITHOUT COMPLICATIONS Assessment/Plan Will d/c IV fluids and monitor on PO intake alone. Family wants placement at [facility]. Difficult to say extent of possible recovery but time will tell. So far post HEALTH CARE ASSISTANT shunt has shown definite improvement in PO intake and some verbalization.
[2017-01-15] MEDS: INSULIN SLIDING SCALE (NOVOLOG) 1 VIAL SQ SCH ×4 (06:20→21:59)
--- NOTE | 2017-01-15 07:21 | PN ---
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, Physician Chief Complaint: Pt awake, moving hands (weak grasp). Good appetite, per oldest daughter. He has been speaking occasionally throughout the day; his daughter does not understand what he is saying. History of Present Illness: Mr. Schaefer is an 89 yo male (b. Chary) with a significant past medical history of paroxysmal AF on coumadin, pacemaker, DM, who presents to the emergency department with a decline over the last month and a half from able to walk with a walker and baseline respond to unable to ambulate with cognitive disorientation. Daughter visited this AM and called PCP on noticing decline and was recommended to come in. Allergies: NKDA Past surgical history: hip replacement and pacemaker placement PMD - Paolo Card - Current Medication List Current Medications: Active Medications Carbidopa/Levodopa (Sinemet 25/100 -) 1 each PO TID [facility] Last Admin: 01/12/17 16:00 Dose: Not Given Insulin Aspart (Novolog Vial Sliding Scale -) 1 vial SQ ACHS [facility] PRN Reason: Protocol Last Admin: 01/15/17 06:20 Dose: 6 unit - Objective Vital Signs: Vital Signs Temperature 98.4 F 01/15/17 05:00 Pulse Rate 84 01/15/17 05:00 Respiratory Rate 18 01/15/17 05:00 Blood Pressure 119/69 01/15/17 05:00 O2 Sat by Pulse Oximetry (%) 98 01/14/17 21:00 Constitutional: Yes: Other (problematic understanding pt's emotions; he does not follow requests, and his speech is not comprehensible) Eyes: Yes: WNL HENT: Yes: WNL Neck: Yes: WNL Cardiovascular: Yes: Pulse Irregular Respiratory: Yes: Regular Gastrointestinal: Yes: Soft Genitourinary: No: Anuria Musculoskeletal: Yes: Muscle Weakness Extremities: Yes: Cool Edema: No Peripheral Pulses WNL: No Peripheral Pulses: Left Doralis Pedis: 1+, Right Dorsalis Pedis: 1+ Integumentary: Yes: Incision Wound/Incision: Yes: Dressing Dry and Intact Neurological: Yes: Weakness Psychiatric: Yes: Other Labs: INR, PTT INR 1.19 (0.82-1.09) H 01/08/17 05:20 - ....Imaging Other: Image Reviewed (telemetry: atrial sensing; ventricular pacing) Problem List - Problems (1) Acute spontaneous intraventricular hemorrhage due to cerebral aneurysm Assessment/Plan: s/p SHIP MATE shunt. F/u with neurosurgeon, neurologist noted. Decision on whether to restart anticoagulant for PAF is difficult, given his hx of fall and ?head injury, with subsequent rapid mental decline and present cerebral bleed. Code(s): I61.5 - NONTRAUMATIC INTRACEREBRAL HEMORRHAGE, INTRAVENTRICULAR I67.1 - CEREBRAL ANEURYSM, NONRUPTURED (2) Hydrocephalus in adult Code(s): G91.9 - HYDROCEPHALUS, UNSPECIFIED (3) Dementia Code(s): F03.90 - UNSPECIFIED DEMENTIA WITHOUT BEHAVIORAL DISTURBANCE (4) Paroxysmal a-fib Assessment/Plan: Controlled HR presently without AV conduction blockers. ECHO: limited study; normal LVEF and LV size. F/u EKG. Code(s): I48.0 - PAROXYSMAL ATRIAL FIBRILLATION (5) Diabetes Code(s): E11.9 - TYPE 2 DIABETES MELLITUS WITHOUT COMPLICATIONS (6) Hypokalemia Assessment/Plan: replete K+; f/u all electrolytes. Consider lisinopril (DM; hypokalemia). Code(s): E87.6 - HYPOKALEMIA
[2017-01-15 07:23] LABS: BASOPHIL 0.6 % (0-2.0); EOSINOPHIL 3.2 % (0-4.5); MCH 30.9 pg (25.7-33.7); MCHC 33.8 g/dl (32.0-35.9); MEAN CELL VOLUME 91.5 fl (80-96); MEAN PLT VOLUME 10.3 fl (7.5-11.1); NEUTROPHILS 62.3 % (42.8-82.8); PLATELET COUNT 144 K/MM3 (134-434); RDW 13.9 % (11.9-15.9)
[2017-01-15 08:00] LABS: ALBUMIN 2.6 g/dl (3.4-5.0); ALK PHOS 62 U/L (45-117); ANION GAP 10 (8-16); BILIRUBIN,TOTAL 0.9 mg/dL (0.2-1.0); CALCIUM 8.1 mg/dL (8.5-10.1); CO2 31 mmol/L (21-32); CREATININE 0.5 mg/dL (0.7-1.3); GLUCOSE,RANDOM 201 mg/dL (74-106); SGOT/AST 17 U/L (15-37); SGPT/ALT 27 U/L (12-78); TOT PROT 5.8 g/dl (6.4-8.2)
--- NOTE | 2017-01-15 11:56 | PN ---
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 Single sips of thin liquid. Reported to be tolerating it well. Less verbal than a couple of days ago , per family. Seen with repeated brief cough, only elevated to 30 degrees. Educated family on elevation of HOB. WBC/temp ok. Attempting to speak but rarely intelligible verbalizations. Selected Entries 01/14/17 01/14/17 01/14/17 01:00 05:30 07:40 Breakfast Supper Temperature 98.9 F 98.6 F 98.1 F 01/14/17 01/14/17 01/14/17 15:00 17:00 20:17 Breakfast Supper 50% Temperature 99.1 F 98.5 F 01/14/17 01/15/17 01/15/17 21:21 01:00 05:00 Breakfast Supper Temperature 99.5 F 97.8 F 98.4 F 01/15/17 01/15/17 08:21 11:33 Breakfast 50% Supper Temperature 98.4 F Laboratory Tests 01/15/17 06:00 WBC 9.0 If cough, congestion,fever, MBS and downgrade to puree/nectar.
--- NOTE | 2017-01-15 12:10 | PN ---
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, Physician History of Present Illness: Mr. Schaefer is an 89 yo male with a significant past medical history of afib on coumadin, pacemaker, DM who presents to the emergency department with a decline over the last month and a half from able to walk with a walker and baseline respond to unable to ambulate with cognitive disorientation. Daughter visited this AM and called PCP on noticing decline and was recommended to come in. PMH cholecystectomy s/p DDDR PPM 12/2009 Medical History: ?PAF CAD (?s/p inferior wall AK); Persantine MIBI 02/2009: no ischemia moderate carotid stenosis Diastolic CHF DM/retinopathy HTN Hyperlipidemia obese s/p complete heart block-->DDDR PPM (12/2009)--[employer] truncal obesity Social History: a glass of wine/day sedentary - Current Medication List Current Medications: Active Medications Carbidopa/Levodopa (Sinemet 25/100 -) 1 each PO TID [facility] Last Admin: 01/12/17 16:00 Dose: Not Given Insulin Aspart (Novolog Vial Sliding Scale -) 1 vial SQ ACHS [facility] PRN Reason: Protocol Last Admin: 01/15/17 06:20 Dose: 6 unit - Objective Vital Signs: Vital Signs Temperature 98.4 F 01/15/17 08:21 Pulse Rate 81 01/15/17 08:21 Respiratory Rate 20 01/15/17 08:21 Blood Pressure 123/59 01/15/17 08:21 O2 Sat by Pulse Oximetry (%) 96 01/15/17 08:00 Eyes: Yes: WNL, Conjunctiva Clear, EOM Intact HENT: Yes: WNL, Atraumatic, Normocephalic Neck: Yes: WNL, Supple, Trachea Midline Cardiovascular: Yes: WNL, Regular Rate and Rhythm Respiratory: Yes: WNL, Regular, CTA Bilaterally Gastrointestinal: Yes: WNL, Normal Bowel Sounds Genitourinary: Yes: WNL Musculoskeletal: Yes: WNL Extremities: Yes: WNL Edema: No Integumentary: Yes: WNL ...Motor Strength: WNL Psychiatric: Yes: WNL Labs: CBC, BMP 01/15/17 06:00 01/15/17 06:00 INR, PTT INR 1.19 (0.82-1.09) H 01/08/17 05:20 Problem List - Problems (1) Acute spontaneous intraventricular hemorrhage due to cerebral aneurysm Code(s): I61.5 - NONTRAUMATIC INTRACEREBRAL HEMORRHAGE, INTRAVENTRICULAR I67.1 - CEREBRAL ANEURYSM, NONRUPTURED (2) Afib Code(s): I48.91 - UNSPECIFIED ATRIAL FIBRILLATION (3) Brain bleed Code(s): I61.9 - NONTRAUMATIC INTRACEREBRAL HEMORRHAGE, UNSPECIFIED (4) Diabetes 1.5, managed as type 1 Code(s): E10.9 - TYPE 1 DIABETES MELLITUS WITHOUT COMPLICATIONS Assessment/Plan Problems (1) Acute spontaneous intraventricular hemorrhage due to cerebral aneurysm Assessment/Plan: s/p LEGAL JOB TITLES shunt. F/u with neurosurgeon, neurologist noted. Decision on whether to restart anticoagulant for PAF is difficult, given his hx of fall and ?head injury, with subsequent rapid mental decline and present cerebral bleed. Code(s): I61.5 - NONTRAUMATIC INTRACEREBRAL HEMORRHAGE, INTRAVENTRICULAR I67.1 - CEREBRAL ANEURYSM, NONRUPTURED (2) Hydrocephalus in adult Code(s): G91.9 - HYDROCEPHALUS, UNSPECIFIED (3) Dementia Code(s): F03.90 - UNSPECIFIED DEMENTIA WITHOUT BEHAVIORAL DISTURBANCE (4) Paroxysmal a-fib Assessment/Plan: Controlled HR presently without AV conduction blockers. ECHO: limited study; normal LVEF and LV size. F/u EKG. Code(s): I48.0 - PAROXYSMAL ATRIAL FIBRILLATION (5) Diabetes Code(s): E11.9 - TYPE 2 DIABETES MELLITUS WITHOUT COMPLICATIONS (6) Hypokalemia Assessment/Plan: replete K+; f/u all electrolytes. Consider lisinopril (DM; hypokalemia). Code(s): E87.6 - HYPOKALEMIA
[2017-01-15 12:54] LABS: MAGNESIUM 1.8 mg/dL (1.8-2.4)
--- NOTE | 2017-01-15 14:49 | EKG ---
Test Reason : Blood Pressure : / mmHG Vent. Rate : 087 BPM Atrial Rate : 087 BPM P-R Int : 220 ms QRS Dur : 158 ms QT Int : 434 ms P-R-T Axes : 096 -76 087 degrees QTc Int : 522 ms Atrial-sensed ventricular-paced rhythm with prolonged AV conduction ABNORMAL ECG WHEN COMPARED WITH ECG OF 06-JAN-2017 13:10, VENT. RATE HAS INCREASED BY 15 BPM Confirmed by DOUG SCHMITT, LUIS ([id number]) on 01/15/2017 2:49:34 PM Referred By: Ziggy BELLA Confirmed By:LUIS CAMACHO MD
--- NOTE | 2017-01-15 15:00 | PN ---
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 (short form) - Note 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: Patient remains stable since shunt adjustment made on Friday. Awakens and converses intermittently and family is able to feed him. I agree with Haley Tripathi and Kyaw that consideration of Parkinson's Disease and a trial of Sinemet may be reasonable. I discussed this with the patient's daughter (Rupal) who is making health care decisions. We discussed the relative merits of adjusting the shunt drainage versus a trial of Sinemet. I feel that overdrainage will risk subdural hematoma and although the pressure setting is still quite high (2.0), before trying to reduce the pressure setting to 1.5, it would be preferable to try addressing what seems to be a multifactorial condition with medications. She is in agreement and we will assess his response and then consider adjusting the shunt when he comes for skin clip removal.
--- NOTE | 2017-01-15 20:58 | PN ---
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, Physician History of Present Illness: As per nursing PO intake is poor. Continues to keep his eyes closed most of the time.Tapping on his shoulder or calling out his name seems to be slightly rsponsive but reji in the PT was able to make him sit by the bedside.Hasn't had any symptoms of aspiration - Current Medication List Current Medications: Active Medications Carbidopa/Levodopa (Sinemet 25/100 -) 1 each PO TID [facility] Last Admin: 01/12/17 16:00 Dose: Not Given Insulin Aspart (Novolog Vial Sliding Scale -) 1 vial SQ ACHS [facility] PRN Reason: Protocol Last Admin: 01/15/17 17:34 Dose: 12 unit - Objective Vital Signs: Vital Signs Temperature 99.0 F 01/15/17 17:00 Pulse Rate 82 01/15/17 17:00 Respiratory Rate 20 01/15/17 17:00 Blood Pressure 129/64 01/15/17 17:00 O2 Sat by Pulse Oximetry (%) 96 01/15/17 08:00 Constitutional: Yes: Well Nourished, No Distress Eyes: Yes: Occular Prosthesis HENT: Yes: WNL Neck: Yes: Supple Cardiovascular: Yes: Pulse Irregular, S1, S2 Respiratory: Yes: Regular, CTA Bilaterally Gastrointestinal: Yes: Normal Bowel Sounds, Soft Genitourinary: Yes: Incontinence Extremities: Yes: WNL Edema: No Wound/Incision: Yes: Clean/Dry, Dressing Dry and Intact Neurological: Yes: Alert Labs: CBC, BMP 01/15/17 06:00 01/15/17 06:00 INR, PTT INR 1.19 (0.82-1.09) H 01/08/17 05:20 Problem List - Problems (1) Hydrocephalus in adult Assessment/Plan: FRUIT BAR MAKER shunt pressure changed by and may improve with this change Code(s): G91.9 - HYDROCEPHALUS, UNSPECIFIED (2) Brain bleed Code(s): I61.9 - NONTRAUMATIC INTRACEREBRAL HEMORRHAGE, UNSPECIFIED (3) Acute spontaneous intraventricular hemorrhage due to cerebral aneurysm Code(s): I61.5 - NONTRAUMATIC INTRACEREBRAL HEMORRHAGE, INTRAVENTRICULAR I67.1 - CEREBRAL ANEURYSM, NONRUPTURED (4) Dementia Assessment/Plan: Had dementia previous to this episode Code(s): F03.90 - UNSPECIFIED DEMENTIA WITHOUT BEHAVIORAL DISTURBANCE Qualifiers: Dementia type: other frontotemporal dementia (5) Anticoagulated on Coumadin Code(s): Z51.81 - ENCOUNTER FOR THERAPEUTIC DRUG LEVEL MONITORING Z79.01 - 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 He has been eating small amount with family help' Will have to be placed on mcfp AC due to his AFib
[2017-01-16] MEDS: INSULIN SLIDING SCALE (NOVOLOG) 1 VIAL SQ SCH ×4 (06:37→21:50)
--- NOTE | 2017-01-16 11:51 | PN ---
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, Physician Chief Complaint: Pt has eyes closed; asleep. Daughters and are in the room. Developed a fever. - Current Medication List Current Medications: Active Medications Carbidopa/Levodopa (Sinemet 25/100 -) 1 each PO TID [facility] Last Admin: 01/12/17 16:00 Dose: Not Given Insulin Aspart (Novolog Vial Sliding Scale -) 1 vial SQ ACHS [facility] PRN Reason: Protocol Last Admin: 01/16/17 06:37 Dose: 6 unit - Objective Vital Signs: Vital Signs Temperature 98.2 F 01/16/17 05:00 Pulse Rate 84 01/16/17 05:00 Respiratory Rate 20 01/16/17 05:00 Blood Pressure 145/61 01/16/17 05:00 O2 Sat by Pulse Oximetry (%) 99 01/15/17 21:00 Labs: CBC, BMP 01/15/17 06:00 01/15/17 06:00 INR, PTT INR 1.19 (0.82-1.09) H 01/08/17 05:20 Problem List - Problems (1) Acute spontaneous intraventricular hemorrhage due to cerebral aneurysm Code(s): I61.5 - NONTRAUMATIC INTRACEREBRAL HEMORRHAGE, INTRAVENTRICULAR I67.1 - CEREBRAL ANEURYSM, NONRUPTURED (2) Hydrocephalus in adult Code(s): G91.9 - HYDROCEPHALUS, UNSPECIFIED (3) Dementia Code(s): F03.90 - UNSPECIFIED DEMENTIA WITHOUT BEHAVIORAL DISTURBANCE (4) Paroxysmal a-fib Code(s): I48.0 - PAROXYSMAL ATRIAL FIBRILLATION (5) Diabetes Code(s): E11.9 - TYPE 2 DIABETES MELLITUS WITHOUT COMPLICATIONS (6) Hypokalemia Code(s): E87.6 - HYPOKALEMIA
--- NOTE | 2017-01-16 12:14 | PN ---
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: Selected Entries 01/14/17 01/14/17 01/14/17 01:00 05:30 07:40 Breakfast Supper Temperature 98.9 F 98.6 F 98.1 F 01/14/17 01/14/17 01/14/17 12:35 15:00 17:00 Breakfast 0 Supper Temperature 99.1 F 98.5 F 01/14/17 01/14/17 01/15/17 20:17 21:21 01:00 Breakfast Supper 50% Temperature 99.5 F 97.8 F 01/15/17 01/15/17 01/15/17 05:00 08:21 11:33 Breakfast 50% Supper Temperature 98.4 F 98.4 F 01/15/17 01/15/17 01/15/17 14:05 17:00 19:53 Breakfast Supper 75% Temperature 98.2 F 99.0 F 01/15/17 01/16/17 01/16/17 21:20 01:00 05:00 Breakfast Supper Temperature 98.6 F 97.6 F 98.2 F 01/16/17 10:05 Breakfast 25% Supper Temperature Laboratory Tests 01/13/17 01/15/17 07:00 06:00 WBC 11.6 H D 9.0 Declined by Giovanni corrigan. For STR. Long conversation with pt's daughter, who fed him. No coughing while eating or drinking. However, some coughing afterwards. (?) CXR (-) infiltrates. Fever spikes but may be unrelated. Careful monitoring for signs of silent aspiration.
[2017-01-16] MEDS: CARBIDOPA/LEVODOPA 25/100 TABLET (FP) PO SCH ×2 (14:06→21:50)
--- NOTE | 2017-01-16 14:23 | PN ---
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 (short form) - Note 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: Patient with modest improvement since shunt reprogramming on Friday2016 when the pressure setting was changed from 2.5 to 2.0. Sinemet therapy has not yet started and the patient's CT scan did not reveal any significant change in ventricular size or subdural hematoma formation. After discussions with patient's daughters and spouse, we agreed to make one further reduction in the shunt pressure setting. The shunt valve was interrogated and found to be at the 2.0 setting as expected. It was carefully changed to 1.5 and then the shunt was interrogated again and found to be correctly set at 1.5. The patient tolerated the procedure well and there were no ill effects noted. We will follow his progress in the coming days. All questions answered. I understand that a fever workup is pending, however from a Neurosurgery standpoint, he is ready for discharge to SNF or subacute rehabilitation. I remain available to discuss his care with any other providers.
--- NOTE | 2017-01-16 21:56 | PN ---
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, Physician History of Present Illness: Continues to be very lethargic and could not cooperate with PT' As peer nursing was able to eat small amount of pureed food coaxed by the family. Dinner he ate almost 75% of the food.He was also more alert this evening. Family wants placement at SNF Dr.Haroon Verma lowered the GASOLINE PUMP MECHANIC shunt pressure which may benefit further - Current Medication List Current Medications: Active Medications Carbidopa/Levodopa (Sinemet 25/100 -) 1 each PO TID [facility] Last Admin: 01/16/17 14:06 Dose: 1 each Insulin Aspart (Novolog Vial Sliding Scale -) 1 vial SQ ACHS [facility] PRN Reason: Protocol Last Admin: 01/16/17 17:43 Dose: 12 unit - Objective Vital Signs: Vital Signs Temperature 99.1 F 01/16/17 20:27 Pulse Rate 85 01/16/17 20:27 Respiratory Rate 16 01/16/17 20:27 Blood Pressure 101/54 01/16/17 20:27 O2 Sat by Pulse Oximetry (%) 98 01/16/17 20:21 Constitutional: Yes: Calm, Other (very lethargic) Eyes: Yes: Other (keeps eyes closed at all times) HENT: Yes: WNL Neck: Yes: Supple Cardiovascular: Yes: Pulse Irregular, S1, S2 Respiratory: Yes: Regular, CTA Bilaterally Gastrointestinal: Yes: Normal Bowel Sounds, Soft Genitourinary: Yes: Incontinence Musculoskeletal: Yes: WNL Extremities: Yes: WNL Edema: No Peripheral Pulses WNL: No Peripheral Pulses: Left Doralis Pedis: 0, Right Dorsalis Pedis: 0 Wound/Incision: Yes: Dressing Dry and Intact Neurological: Yes: Alert, Dysarthria ...Motor Strength: WNL Labs: CBC, BMP 01/15/17 06:00 01/15/17 06:00 INR, PTT INR 1.19 (0.82-1.09) H 01/08/17 05:20 Problem List - Problems (1) Hydrocephalus in adult Assessment/Plan: After GASOLINE PUMP MECHANIC shunt shows signs of improvement with improving PO intake but continue lethargic off and on with dysarthria Code(s): G91.9 - HYDROCEPHALUS, UNSPECIFIED (2) Brain bleed Assessment/Plan: CT scan does not show any further bleeding. Will restart AC in AM. 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 As he is stable from a neurosurgical point and PO intake has improved will transfer to SNF.
[2017-01-17] MEDS: INSULIN SLIDING SCALE (NOVOLOG) 1 VIAL SQ SCH ×2 (06:44→12:30)
[2017-01-17] MEDS: CARBIDOPA/LEVODOPA 25/100 TABLET (FP) PO SCH ×3 (06:44→14:29)
[2017-01-17 07:24] LABS: BASOPHIL 0.7 % (0-2.0); EOSINOPHIL 3.1 % (0-4.5); MCH 31.2 pg (25.7-33.7); MCHC 33.9 g/dl (32.0-35.9); MEAN CELL VOLUME 91.8 fl (80-96); MEAN PLT VOLUME 10.2 fl (7.5-11.1); NEUTROPHILS 61.7 % (42.8-82.8); PLATELET COUNT 204 K/MM3 (134-434); RDW 13.9 % (11.9-15.9); WHITE BLOOD COUNT 10.1 K/mm3 (4.0-10.0)
[2017-01-17 07:57] LABS: ALBUMIN 2.6 g/dl (3.4-5.0); ANION GAP 11 (8-16); BILIRUBIN,TOTAL 0.9 mg/dL (0.2-1.0); CALCIUM 8.2 mg/dL (8.5-10.1); CO2 31 mmol/L (21-32); CREATININE 0.6 mg/dL (0.7-1.3); GLUCOSE,RANDOM 148 mg/dL (74-106); SGPT/ALT 24 U/L (12-78); TOT PROT 6.1 g/dl (6.4-8.2)
[2017-01-17 07:58] LABS: ALK PHOS 62 U/L (45-117)
[2017-01-17 08:17] LABS: SGOT/AST 35 U/L (15-37)
--- NOTE | 2017-01-17 09:15 | PN ---
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 (short form) - Note 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: Patient appears more alert with eyes open and eating/conversing at this time. Appears to be responding well to shunt pressure adjustment yesterday. Course of care discussed with daughter who is appreciative of our efforts. Agree with plans for discharge to SNF.
--- NOTE | 2017-01-17 09:18 | CONS ---
DATE OF CONSULTATION: 01/17/2017 REFERRING PHYSICIAN: Paolo Card MD HISTORY OF PRESENT ILLNESS: The patient is an 89-year-old man with past medical history of dementia, atrial fibrillation, osteoarthritis, insulin-dependent diabetes, who was admitted with difficulty ambulating. Patient evidently is having decline in his function over the last 6 months. On admission underwent CT of the head. Had an intraventricular hemorrhage as well as hydrocephalus. Subsequently underwent a shunt placement on January 09. On admission, his blood work showed some elevation in AST 67, ALT 131. Troponin was normal. He had normal WBCs 8.1, hemoglobin elevated at 17.1, platelet count 161. Chemistry was within normal limits. Repeat blood work on January 15 showed fairly normal WBCs 9.0, hemoglobin 12.6, platelet count 144. Chemistry within normal limits. BUN 7, creatinine 0.5. Patient remains with his eyes closed most of the time and noncooperative. He does eat per 1 of his daughters who is present at the bedside. He is not cooperative with examination. His WBCs are slightly elevated on blood work done today at 10.1, his hemoglobin is stable 12.6, platelet count normal 204. Chemistry is pending. He also has blood cultures pending. Urine culture on January 06 was normal. Patient has been followed by Physical Therapy but really unable to participate much with rehabilitation. PAST MEDICAL AND SURGICAL HISTORY: Review of past medical and surgical history as above, dementia, atrial fibrillation, hypertension, hyperlipidemia, osteoarthritis, diabetes insulin dependent. SOCIAL HISTORY: Lives with a daughter and spouse but needed assistance prior to admission. May have been declining in terms of ambulatory status over the last 6 months. REVIEW OF SYSTEMS: Impossible due to patient's mental status. PHYSICAL EXAMINATION: Patient seen lying in bed. He does speak, but even a family member present who speaks fluent Maori could not understand any of what he was saying. He keeps his eyes closed during the exam, but he does resist. He has diminished range of motion in both shoulders. The right is stiffer than the left, only 60 to 70 degrees forward flexion on the right compared to 90 to 100 degrees on the left. He has nearly full elbow extension and at least 4 to 5 bilingual interpreter strength. Again, not following any commands and not opening his eyes. He has no obvious facial weakness. In the lower extremities, he has full passive range of motion but some tightness in knee flexors, hip flexors, and plantar flexors. He withdraws to pin and painful stimulus. Some arthritic changes throughout his upper and lower extremities. Reflexes symmetric. Toes equivocal. Skin without any breakdown, heel or sacrum. OVERALL IMPRESSION: 1. Severe deficits, mobility, activities of daily living. 2. Intraventricular hemorrhage. 3. Hydrocephalus, status post ventriculoperitoneal shunt on January 09. 4. Slight leukocytosis. 5. Elevated risk for deep vein thrombosis due to immobility. 6. Elevated risk for skin breakdown due to immobility. 7. Increased risk for contractures. 8. Increased risk for constipation. 9. History of atrial fibrillation. 10. History of hypertension. 11. History of osteoarthritis. 12. History of diabetes, insulin dependent. 13. Possible premorbid dementia. PLAN/SUGGESTIONS: 1. Supportive care. 2. Nursing for daily range of motion, stretching. 3. Physical Therapy to teach family daily range of motion, stretching. 4. When safe from a neurosurgical standpoint, consider DVT prophylaxis with subcutaneous heparin. In the meantime, would suggest SCDs while in bed. 5. Skin precautions. Avoid heel/sacral pressure. Monitor for breakdown, erythema. 6. Bowel regimen. Monitor for constipation. 7. Transfer to short-term rehabilitation once medically stable but may require long-term care. Thank you for this referral. ANKUR JACKSON M.D. [id number]
--- NOTE | 2017-01-17 12:14 | PN ---
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 The shunt adjustment was diagnostic, with improved functional response. Selected Entries 01/16/17 01/16/17 01/16/17 01:00 05:00 09:00 Breakfast Supper Temperature 97.6 F 98.2 F 100.1 F H 01/16/17 01/16/17 01/16/17 10:05 15:00 17:00 Breakfast 25% Supper Temperature 98.8 F 98.5 F 01/16/17 01/16/17 01/16/17 19:16 20:27 22:30 Breakfast Supper 25% Temperature 99.1 F 100.9 F H 01/17/17 01/17/17 01/17/17 02:00 05:08 11:28 Breakfast 50% Supper Temperature 98.6 F 99.1 F Laboratory Tests 01/15/17 01/17/17 06:00 05:35 WBC 9.0 10.1 H Continue speech/swallowing therapy at [facility]. Monitor for chnges in YONI and lanuge function.
[2017-01-17] MEDS ORDERED: DABIGATRAN ETEXILATE MESYLATE 75 MG CAPSULE PO SCH (12:30)
--- NOTE | 2017-01-17 12:33 | DS ---
Physical Examination Vital Signs: Vital Signs Temperature 99.1 F 01/17/17 05:08 Pulse Rate 81 01/17/17 05:08 Respiratory Rate 18 01/17/17 08:00 Blood Pressure 131/67 01/17/17 05:08 O2 Sat by Pulse Oximetry (%) 96 01/17/17 08:00 Findings/Remarks: As per nursing more alert and continues to tolerate puree diet without any aspiration. As there is no further bleeding will start pt on Pradaxa as he has AFIB. Will be transferred to SNF today. Constitutional: Yes: Well Nourished, No Distress, Calm Eyes: Yes: WNL HENT: Yes: WNL Neck: Yes: Supple Cardiovascular: Yes: Pulse Irregular, S1, S2 Respiratory: Yes: Regular, CTA Bilaterally Gastrointestinal: Yes: Normal Bowel Sounds, Soft Renal/: Yes: Incontinence Musculoskeletal: Yes: WNL Extremities: Yes: WNL Edema: No Peripheral Pulses WNL: No Peripheral Pulses: Left Doralis Pedis: 0, Right Dorsalis Pedis: 0 Integumentary: Yes: WNL Neurological: Yes: Alert, Confusion, Dysarthria ...Motor Strength: WNL Psychiatric: Yes: Alert Labs: CBC, BMP 01/17/17 05:35 01/17/17 05:35 Discharge Summary Reason For Visit: change in mental status, Intracerebral bleed Current Active Proble Anticoagulated on Coumadin (Acute) Brain bleed (Acute) Dementia (Acute) Diabetes (Acute) Diabetes 1.5, managed as type 1 (Acute) Hydrocephalus in adult (Acute) Hypokalemia (Acute) Paroxysmal a-fib (Acute) Procedures: Principal: CT scan brain,. Ventriculo peritoneal shunt Hospital Course: 89 y/o who showed progressive deterioration in cognition being confused off and on and had fall had home which may have precipitated worsening in his mental function. He was brought to ED and a CT of brain showed small amount of blood layering in the intraventricular area and also showed dilatation of the ventricles which had increased compared to old CT scans of 2013.He was aphasic and as there was no other cause to cause deterioration in mental function it was decided to proceed with placement of a AIRCRAFT REFUELER shunt. On admission coagulopathy due to coumadin was reversed with FFP and vit K IV. Serial CT scan did not show progression of the bleed. Postop there was definite improvement in his condition and gradually from thickened liquid diet he was able to tolerate puree diet without any signs of aspiration. He was started on Pradaxa 75mg BID due to his AFIB. He has a pacemaker which was inserted for heart block. 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 His diabetes was treated with sliding scale of Reg.Insulin as his PO intake was erratic with the feeling that he could be placed on Humulin 70/30 once his PO intake was consistent. Condition: Improved - Instructions Diet, Activity, Other Instructions: Puree diet , with progressive increase in activity. Referrals: Paolo Card MD [Primary Care Provider] - Disposition: [facility] - Home Medications Comprehensive Discharge Medication List: Ambulatory Orders Insulin NPH Hum/Reg Insulin Hm [Humulin 70-30 Vial] 26 unit SQ AM 04/09/12 Insulin NPH Hum/Reg Insulin Hm [Humulin 70-30 Vial] 20 unit SQ HS 05/12/12 Atorvastatin Calcium 10 mg PO HS 01/06/17 Glipizide [Glipizide Xl] 5 mg PO DAILY 01/06/17 Metoprolol Succinate [Toprol Xl -] 25 mg PO DAILY 01/06/17 Warfarin Na [Coumadin] 4 mg PO ASDIR 01/06/17 Warfarin Na [Coumadin] 6 mg PO ASDIR 01/06/17
[2017-01-17] MEDS ORDERED: POLYETHYLENE GLYCOL 3350 119 GM BTL PO ONE (13:06)
[2017-01-17 14:27] VITALS: BP 127/78; PULSE 82; TEMP 98.7
== END 2017-01-17 15:19 | DRG 31 ==
LOC: JER 12:43 → JERBED 17:52 → JICU 20:31 → J4S 01-08 17:36 → JSAMEDAYSX 01-09 15:30 → J4S 01-09 17:45 → J4W 01-10 08:42
PROVIDERS: ADMIT Internal Medicine Hematology & Oncology; ATTEND Internal Medicine Hematology & Oncology
PROC: 30233K1 Transfusion of Nonautologous Frozen Plasma into Peripheral Vein, Percutaneous Approach (ICD-10-PCS; 2017-01-07)
PROC: 00160J6 Bypass Cerebral Ventricle to Peritoneal Cavity with Synthetic Substitute, Open Approach (ICD-10-PCS; principal; 2017-01-09 16:00)
DX: G91.8 Other hydrocephalus (principal); I61.5 Nontraumatic intracerebral hemorrhage, intraventricular; D68.32 Hemorrhagic disorder due to extrinsic circulating anticoagulants; T45.515A Adverse effect of anticoagulants, initial encounter; I48.0 Paroxysmal atrial fibrillation; I10 Essential (primary) hypertension; E78.5 Hyperlipidemia, unspecified; G31.84 Mild cognitive impairment of uncertain or unknown etiology; F03.90 Unspecified dementia, unspecified severity, without behavioral disturbance, psychotic disturbance, mood disturbance, and anxiety; E11.42 Type 2 diabetes mellitus with diabetic polyneuropathy; I67.1 Cerebral aneurysm, nonruptured; H54.0 Blindness, both eyes; E11.319 Type 2 diabetes mellitus with unspecified diabetic retinopathy without macular edema; E87.6 Hypokalemia; Z79.4 Long term (current) use of insulin; Z95.0 Presence of cardiac pacemaker; Z79.01 Long term (current) use of anticoagulants; Z96.649 Presence of unspecified artificial hip joint
CPT/HCPCS: 36415; 36430; 70450-TC; 71010-TC; 74020-TC; 80048; 80053; 81003; 81015; 83735; 83880; 84100; 84484; 85025; 85027; 85610; 85730; 86850; 86900; 86901; 87040; 87086; 90670; 93005; 93010; 93306-TC; 94760; 97162-GP; 99283-25; P9017

== ENCOUNTER 2017-01-20 18:29 | Emergency (ER) | payer OTHER ==
--- NOTE | 2017-01-20 18:59 | PDOC ---
History of Present Illness - General History Source: Family, Old Records Exam Limitations: Other (Altered mental status ) - History of Present Illness Initial Comments: 01/20/17 19:41 The patient is an 89 year old english speaking male, with significant past medical history of hydrocephalus (s/p shunt 01/11/17), Afib s/p pacemaker, HTN, HLD, IDDM, who was recently discharged to [facility] on 01/17/17 after a 10 day long stay in the hospital. Over the past month, the patient has progressively worsening loss of memory and disorientation which led his daughters to bring him to the ED. His head CT reported hydrocephalus and the patient was admitted to the hospital for a MANAGER STRATEGIC [employer]NERSHIPS shunt. This morning around 11:45am , the patient suddenly became less responsive as per his daughters. He has not opened his eyes for the last 3 hours. His daughter states that he ate breakfast , but refused lunch and was not responsive enough to eat dinner. The patient is not ambulatory. HPI is limited secondary to altered mental status. <Haley Newton - Last Filed: 01/20/17 21:09> <Maryellen Guy - Last Filed: 01/21/17 01:11> - General Chief Complaint: Altered Mental Status Stated Complaint: ALT MENTAL STATUS Time Seen by Provider: 01/20/17 18:34 Past History <Haley Newton - Last Filed: 01/20/17 21:09> - Past Medical History Cardiac Disorders: Yes (A.FIB) Diabetes: Yes (IDDM) HTN: Yes Hypercholesterolemia: Yes Suicide Attempt (Hx): No - Surgical History Cardiac Surgery: Yes (pacemaker) Cholecystectomy: Yes - Psycho/Social/Smoking Cessation Hx Anxiety: No Suicidal Ideation: No Smoking Status: Yes Smoking History: Former smoker Have you smoked in the past 12 months: No Number of Cigarettes Smoked Daily: 0 Hx Alcohol Use: No Drug/Substance Use Hx: No Substance Use Type: None Hx Substance Use Treatment: No <Maryellen Guy - Last Filed: 01/21/17 01:11> - Past Medical History Allergies/Adverse Reactions: Allergies Allergy/AdvReac Type Severity Reaction Status Date / Time No Known Allergies Allergy Verified 01/06/17 13:11 Home Medications: Ambulatory Orders Acetaminophen [Tylenol] 325 mg PO BID 01/20/17 Atorvastatin Ca [Lipitor] 10 mg PO HS 01/20/17 Carbidopa/Levodopa 25/100 [Sinemet 25/100 -] 1 each PO TID 01/20/17 Dabigatran Etexilate Mesylate [Pradaxa -] 75 mg PO BID 01/20/17 Docusate Sodium [Colace -] 100 mg PO BID 01/20/17 Insulin (Levemir) [Levemir Flexpen -] 10 units SQ HS 01/20/17 Insulin Lispro [Humalog] 0 unit SQ ACLD 01/20/17 Metoprolol Succinate [Toprol Xl -] 25 mg PO DAILY 01/20/17 Polyethylene Glycol 3350 [Miralax (For Daily Use) -] 17 gm PO DAILY 01/20/17 Review of Systems - Review of Systems Able to Perform ROS?: No (Altered mental status) <Haley Newton - Last Filed: 01/20/17 21:09> *Physical Exam - Vital Signs Last Vital Signs Temp Pulse Resp BP Pulse Ox 98.3 F 75 16 128/82 100 01/20/17 18:57 01/20/17 18:57 01/20/17 18:57 01/20/17 18:57 01/20/17 18:57 - Physical Exam Comments: 01/20/17 19:43 GENERAL: Well developed, well nourished. Altered mental status. No acute distress. HEENT: Normocephalic, atraumatic. PERRLA, EOMI. No conjunctival pallor. Sclera are non- icteric. Moist mucous membranes. Oropharynx is clear. NECK: Supple. Full ROM. No JVD. Carotid pulses 2+ and symmetric, without bruits. No thyromegaly. No lymphadenopathy. CARDIOVASCULAR: Regular rate and rhythm. No murmurs, rubs, or gallops. Distal pulses are 2+ and symmetric. PULMONARY: No evidence of respiratory distress. Lungs clear to auscultation bilaterally. No wheezing, rales or rhonchi. ABDOMINAL: +protuberant belly. +reducible umbilical hernia. Soft. Non-tender. No rebound or guarding. No organomegaly. Normoactive bowel sounds. EXTREMITIES: No cyanosis. No clubbing. No edema. No calf tenderness. SKIN: +8 sara to the right occiput. 4 sara to the right neck. Well healed 4 cm surgical incision with 12 sara to the right abdomen adjacent to the umbilicus. Warm and dry. Normal capillary refill. No rashes. No jaundice. NEUROLOGICAL: Cranial nerves 2-12 intact. No deficits to light touch and temperature in face, upper extremities and lower extremities. No motor deficits in the in face, upper extremities and lower extremities. Normoreflexic in the upper and lower extremities. Toes are down-going bilaterally. <Haley Newton - Last Filed: 01/20/17 21:09> ED Treatment Course - LABORATORY CBC & Chemistry Diagram: 01/20/17 19:50 01/20/17 19:50 - RADIOLOGY Radiograph Interpretation: 01/20/17 21:09 EXAM#: TYPE/EXAM: RESULT: [id number] CT/HEAD CT WITHOUT CONTRAST Cranial CT without contrast Clinical information: altered mental status No definite interval change is identified in comparison to a previous CT study of 01/14/2017. A small amount of intraventricular blood is noted layering within the occipital horns of the lateral ventricles. As on the prior study a right parietal ventriculoperitoneal shunt is seen in place with the tip within the frontal horn of the right lateral ventricle abutting the septum pellucidum. There is moderate dilatation of the lateral ventricles and third ventricle without definite interval change. There is no extra-axial fluid collection. Periventricular and subcortical microvascular ischemic gliosis is seen. No acute infarct is identified within the limitations of CT. As on prior study there appear to be several small chronic left cerebellar hemispheric infarct inferiorly. There is no gross mass lesion. Moderate left mastoid and mild right mastoid fluid accumulation is again seen. Impression: No definite interval change is identified as discussed above. Reported By: Jos Alexandra MD 01/20/172101 <Haley Newton - Last Filed: 01/20/17 21:09> - LABORATORY CBC & Chemistry Diagram: 01/20/17 19:50 01/20/17 19:50 <Maryellen Guy - Last Filed: 01/21/17 01:11> Medical Decision Making - Medical Decision Making 01/20/17 23:27 89-year-old male brought in by ambulance from [facility] on the [place] for altered mental status. The long-term staff was concerned because he would not open his eyes and refused to eat Patient was recently discharged from [facility] after having a atraumatic brain bleed in December 2016. He received a MANAGER STRATEGIC [employer]NERSHIPS shunt He presents with no fever, normal vital signs. He she denies any family says he typically will respond to their inquiries. Upon arrival, his eyes were closed tight. He eventually his mental status did improve and his eyes are open and he is moving off his extremities. He is pulling on the sheets. CAT scan of the head did not show any acute changes from his prior that was done on January 14 this year -Today's CAT scan did not show any interval change since his CAT scan on January 14 this year. Today's CAT scan showed a small amount of intraventricular blood layering within the next little horns of the lateral ventricles. It is on the prior study of right parietal ventriculoperitoneal seen within the frontal horn of the right lateral ventricle. Moderate dilatation the lateral ventricles and third ventricle are seen, and this is unchanged from the prior study. There is no extra-axial fluid collection. There is no acute infarct identified. There is several small chronic left cerebellar hemispheric infarcts inferiorly as noted on a prior study. There is no gross mass lesion. I discussed the lab results and also CAT scan results with Dr. Paolo Her -No evidence of urinary tract infection, his glucose is 220. Baby does have a history of diabetes. He has kidney function and liver function tests are within normal limits. Chest x-ray does not show any new infiltrate Patient will be discharged back to the long-term <Maryellen Guy - Last Filed: 01/21/17 01:11> *DC/Admit/Observation/Transfer - Attestations Scribe Attestion: 01/20/17 19:43 Documentation prepared by MATTHEW Beauchamp, acting as senior medical billing specialist for Maryellen Guy MD. <Haley Newton - Last Filed: 01/20/17 21:09> <Maryellen Guy - Last Filed: 01/21/17 01:11> Diagnosis at time of Disposition: Hydrocephalus in adult, Paroxysmal a-fib Dementia Qualifiers: Dementia type: unspecified type Dementia behavioral disturbance: without behavioral disturbance Qualified Code(s): F03.90 - Unspecified dementia without behavioral disturbance - Discharge Dispostion Disposition: HOME Condition at time of disposition: Stable - Referrals Referrals: Paolo Card MD [Staff Physician] - - Patient Instructions Printed Discharge Instructions: DI for Altered Mental Status
[2017-01-20 19:08] VITALS: TEMP 98.3; BMI 31.4
[2017-01-20 19:59] LABS: BASOPHIL 0.7 % (0-2.0); MCH 31.3 pg (25.7-33.7); MEAN PLT VOLUME 9.7 fl (7.5-11.1); NEUTROPHILS 67.3 % (42.8-82.8); PLATELET COUNT 232 K/MM3 (134-434); RDW 14.2 % (11.9-15.9); WHITE BLOOD COUNT 11.8 K/mm3 (4.0-10.0)
[2017-01-20 21:07] LABS: ALBUMIN 3.1 g/dl (3.4-5.0); ANION GAP 10 (8-16); CALCIUM 8.4 mg/dL (8.5-10.1); CO2 29 mmol/L (21-32); CREATININE 0.6 mg/dL (0.7-1.3); GLUCOSE,RANDOM 220 mg/dL (74-106); SGOT/AST 16 U/L (15-37); SGPT/ALT 14 U/L (12-78); TOT PROT 7.2 g/dl (6.4-8.2)
[2017-01-20 21:11] LABS: ALK PHOS 71 U/L (45-117); CPK 64 IU/L (39-308); TROPONIN I 0.03 ng/ml (0.00-0.05)
[2017-01-20 22:05] LABS: INR 1.3 (0.82-1.09); PROTHROMBIN TIME (PATIENT) 14.4 SEC (9.98-11.88)
[2017-01-20 22:13] LABS: URINE APPEARANCE CLEAR; URINE BILIRUBIN NEGATIVE (NEGATIVE); URINE BLOOD TRACE-LYSE (NEGATIVE); URINE COLOR LT. YELLOW; URINE GLUCOSE (UA) 2+ (NEGATIVE); URINE KETONE NEGATIVE (NEGATIVE); URINE NITRITE NEGATIVE (NEGATIVE); URINE PROTEIN NEGATIVE (NEGATIVE)
[2017-01-20 22:19] VITALS: BP 133/77; PULSE 84
--- NOTE | 2017-01-21 11:52 | EKG ---
Test Reason : Blood Pressure : / mmHG Vent. Rate : 077 BPM Atrial Rate : 077 BPM P-R Int : 214 ms QRS Dur : 146 ms QT Int : 450 ms P-R-T Axes : 062 -81 082 degrees QTc Int : 509 ms POOR DATA QUALITY, INTERPRETATION MAY BE ADVERSELY AFFECTED Atrial-sensed ventricular-paced rhythm with prolonged AV conduction ABNORMAL ECG WHEN COMPARED WITH ECG OF 15-JAN-2017 09:03, VENT. RATE HAS DECREASED BY 10 BPM REPEAT EKG IF CLINICALLY INDICATED Confirmed by TAMARA OLIVA MD ([id number]) on 01/21/2017 11:51:59 AM Referred By: Confirmed By:TAMARA OLIVA MD
== END 2017-01-21 01:12 ==
LOC: JER 18:29
DX: F03.90 Unspecified dementia, unspecified severity, without behavioral disturbance, psychotic disturbance, mood disturbance, and anxiety (principal); I48.0 Paroxysmal atrial fibrillation; Z79.01 Long term (current) use of anticoagulants; I10 Essential (primary) hypertension; E78.00 Pure hypercholesterolemia, unspecified; E11.9 Type 2 diabetes mellitus without complications; Z79.4 Long term (current) use of insulin; G91.8 Other hydrocephalus; Z86.73 Personal history of transient ischemic attack (TIA), and cerebral infarction without residual deficits
CPT/HCPCS: 36415; 70450-TC; 71010-TC; 80053; 81003; 84484; 85025; 85610; 86850; 86900; 86901; 93005; 93010; 99283-25

== ENCOUNTER 2017-01-31 10:52 | Inpatient (IN) | payer OTHER ==
--- NOTE | 2017-01-31 11:33 | PDOC ---
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 He is minimally responsive and unable to provide any of his medical history. He has h/o recent intraventricular hemorrhage and also dementia, IDDM, paroxysmal a-fib (on Praxada), pacemaker use (ventricular), HTN, HLD, and bilateral blindness. He is BIBA from SNF where staff noted he has had AMS, weakness, pallor, and moderate bloody urinary drainage. On speaking with family here in the ED and on phone call, they note that this is his normal mental baseline. Their understanding is that the only difference today and yesterday from his normal baseline is the blood in the urine. Past History - Past Medical History Allergies/Adverse Reactions: Allergies Allergy/AdvReac Type Severity Reaction Status Date / Time No Known Allergies Allergy Verified 01/06/17 13:11 Home Medications: Ambulatory Orders Acetaminophen [Tylenol] 325 mg PO BID 01/20/17 Atorvastatin Ca [Lipitor] 10 mg PO HS 01/20/17 Carbidopa/Levodopa 25/100 [Sinemet 25/100 -] 1 each PO TID 01/20/17 Dabigatran Etexilate Mesylate [Pradaxa -] 75 mg PO BID 01/20/17 Docusate Sodium [Colace -] 100 mg PO BID 01/20/17 Insulin (Levemir) [Levemir Flexpen -] 10 units SQ HS 01/20/17 Insulin Lispro [Humalog] 0 unit SQ ACLD 01/20/17 Metoprolol Succinate [Toprol Xl -] 25 mg PO DAILY 01/20/17 Polyethylene Glycol 3350 [Miralax (For Daily Use) -] 17 gm PO DAILY 01/20/17 Cardiac Disorders: Yes (A.FIB) Diabetes: Yes (IDDM) HTN: Yes Hypercholesterolemia: Yes - Surgical History Cardiac Surgery: Yes (pacemaker) Cholecystectomy: Yes - Immunization History Immunization Up to Date: Yes - Suicide/Smoking/Psychosocial Hx Smoking Status: Yes Smoking History: Never smoked Have you smoked in the past 12 months: No Number of Cigarettes Smoked Daily: 0 Information on smoking cessation initiated: No Hx Alcohol Use: No Drug/Substance Use Hx: No Substance Use Type: None Hx Substance Use Treatment: No Review of Systems - Review of Systems Able to Perform ROS?: No (dementia, AMS) *Physical Exam - Vital Signs Last Vital Signs Temp Pulse Resp BP Pulse Ox 98.4 F 75 20 132/69 99 01/31/17 11:00 01/31/17 11:00 01/31/17 11:00 01/31/17 11:00 01/31/17 11:00 - Physical Exam General Appearance: Yes: Other (appears pale, minimally responsive, does open eyes to pain (sternal rub), grimaces to UE nailbed pressure, withdraws to discomfort on Babinski) HEENT: positive: Other (right pupil is 2 mm and minimally reactive, left pupil is 4 mm and sluggishly reactive, partly edentulous, mouth held open for duration of exam, dry mucous membranes, right posterior parietus with healing craniotomy scar which is CDI) Neck: positive: Other (right anterior-inferior neck with healing scar from central line which is CDI) Respiratory/Chest: positive: Lungs Clear, Normal Breath Sounds. negative: Respiratory Distress, Labored Respiration Cardiovascular: positive: Regular Rhythm, Regular Rate. negative: Murmur Gastrointestinal/Abdominal: positive: Normal Bowel Sounds, Protuberent, Hernia ( small umbilical, reducible, nontender). negative: Tender Male Genitalia: positive: other (small amount of pink tinged drainage in diaper) Integumentary: positive: Pale Neurologic: positive: Other (GCS is 7 (opens eyes to pain, no verbal response, withdraws from BLE pain), moving all four extremities, does not track with eyes) . negative: Alert, Facial Droop Heart Score/ECG Review - History History: Slightly suspicious - Electrocardiogram EKG: Normal - Age Age: >/= 65 - Risk Factors Risk Factors Heart Score: Yes Hx Hypercholesterolemia, Yes Hx Hypertension, Yes Hx Diabetes Based on the list above the patient has:: >/=3 risk factors or Hx atherosclerotic disease - Troponin Troponin: </= normal limit - Score Heart Score - Total: 4 #1 Ventricular paced rhythm, rate of 71, negative sgarbossa criteria, no ischemic changes. ED Treatment Course - LABORATORY CBC & Chemistry Diagram: 02/04/17 07:30 02/04/17 07:30 - RADIOLOGY Radiology Studies Ordered: CXR shows no acute cardiopulmonary processes. Head CT WO contrast shows no interval change from prior study, nothing acute. Medical Decision Making - Medical Decision Making 89 yom with recent FLOTATION TENDER HELPER shunt placement for hydrocephalus and ICH presents from SNF with staff-reported hematuria. On exam is minimally responsive, only responds to pain but no vocalizations. Blood-tinged urine seen in diaper. Ordered is CBCD, CMP, Mg, Phos, UA & cx, cardiac profile, BNP, EKG, Head CT WO contrast. CBCD mildly elevated white count. CMP elevated BG >300 and Pt is given 6 regular insulin IV push. Acetone ordered given BG measurement. UA returns with >2000 WBCs as well as blood and protein. Blood cx ordered. Ceftriaxone 1 gm IV ordered. Fingerstick BG 370 after 6 U IV push regular insulin. Pt will be admitted to inpatient for UTI and hyperglycemia in IDDM. 01/31/17 15:35 Acetone negative. CXR and Head CT unremarkable for acute pathology. Spoke with Pt's daughter (primary contact under next of kin) on the phone. She requests that Pt's long-time PCP Paolo Card be the primary provider for this admission. Dr. Gonsalez noted to be the primary provider while Pt has been at [facility]. Spoke with Dr. Card who graciously suggests that he can admit the patient under his name. Pt admitted to med/surg. *DC/Admit/Observation/Transfer Diagnosis at time of Disposition: UTI (urinary tract infection) Qualifiers: Urinary tract infection type: acute cystitis Hematuria presence: with hematuria Qualified Code(s): N30.01 - Acute cystitis with hematuria Hyperglycemia due to type 2 diabetes mellitus Qualifiers: Diabetes mellitus correction insulin use: with predatory animal exterminator use Qualified Code(s): E11.65 - Type 2 diabetes mellitus with hyperglycemia - Discharge Dispostion Condition at time of disposition: Guarded Admit: Yes
[2017-01-31 12:02] LABS: BASOPHIL 0.9 % (0-2.0); EOSINOPHIL 1.4 % (0-4.5); MCHC 33.5 g/dl (32.0-35.9); MEAN CELL VOLUME 92.6 fl (80-96); MEAN PLT VOLUME 10.5 fl (7.5-11.1); NEUTROPHILS 69.5 % (42.8-82.8); PLATELET COUNT 214 K/MM3 (134-434); RDW 14.2 % (11.9-15.9); WHITE BLOOD COUNT 10.1 K/mm3 (4.0-10.0)
[2017-01-31 12:12] LABS: PH,URINE 8.5 (5.0-8.0); URINE APPEARANCE CLOUDY; URINE BILIRUBIN NEGATIVE (NEGATIVE); URINE BLOOD 3+ (NEGATIVE); URINE COLOR BROWN; URINE GLUCOSE (UA) 2+ (NEGATIVE); URINE KETONE TRACE (NEGATIVE); URINE NITRITE NEGATIVE (NEGATIVE); URINE UROBILINOGEN 0.2 mg/dL (0.2-1.0)
[2017-01-31 12:14] LABS: URINE LEUK ESTERASE 1+ (NEGATIVE); URINE PROTEIN 2+ (NEGATIVE)
[2017-01-31 12:19] LABS: ANION GAP 9 (8-16); BILIRUBIN,TOTAL 0.6 mg/dL (0.2-1.0); CALCIUM 8.5 mg/dL (8.5-10.1); CO2 30 mmol/L (21-32); CREATININE 0.7 mg/dL (0.7-1.3); MAGNESIUM 2.2 mg/dL (1.8-2.4); PHOSPHOROUS 3.1 mg/dL (2.5-4.9); SGOT/AST 17 U/L (15-37); SGPT/ALT 14 U/L (12-78); TOT PROT 6.9 g/dl (6.4-8.2)
[2017-01-31 12:22] LABS: ALK PHOS 77 U/L (45-117); CPK 49 IU/L (39-308); TROPONIN I 0.03 ng/ml (0.00-0.05)
[2017-01-31 12:23] LABS: INR 1.29 (0.82-1.09); PROTHROMBIN TIME (PATIENT) 14.3 SEC (9.98-11.88)
[2017-01-31 12:26] LABS: GLUCOSE,RANDOM 359 mg/dL (74-106); URINE MUCUS RARE; URINE RBC 376 /hpf (0-3); URINE WBC 2648 /hpf (3-5)
[2017-01-31] MEDS ORDERED: INSULIN REGULAR HUMAN 100 UNITS/ML *VIAL IVPUSH ONE (12:26)
[2017-01-31] MEDS ORDERED: CEFTRIAXONE 1 GM in DEXTROSE 5%-WATER - 50 ML IVPB ONE (13:19)
[2017-01-31] MEDS ORDERED: CEFTRIAXONE 50 ML ONE (13:25)
[2017-01-31] MEDS ORDERED: SODIUM CHLORIDE 1,000 ML IV STA (14:03)
--- NOTE | 2017-01-31 14:54 | PDOC ---
Attending Attestation - Resident Resident Name: Pily Rodriges - ED Attending Attestation I have performed the following: I have examined & evaluated the patient, The case was reviewed & discussed with the resident, I agree w/resident's findings & plan, Exceptions are as noted - HPI HPI: 01/31/17 14:47 89 yo M with h/o ich, s/p vp account director shunt few weeks ago, DM HLD dmentia , here today from nursing facility ( short term rehab ) at [facility] for worsening mental status. per family pt has been nonverbal and minimally responsive for some time. no n/v noted decreased po intake. other ackerman no other complaints. - Physicial Exam PE: 01/31/17 14:49 awake, eyes closed. pt does not respond to stimuli, moves spontaneously lungs clear bilaterally. heart rrr no mrg. abd soft nt, nd. skin warm and dry. nuero awake , not follow commands. moves all ext. 01/31/17 14:54 - Medical Decision Making 01/31/17 14:55 89 you male in rehab s/p vp account director shunt for ich, with decreasing mental status, pallor and recent concerns for hematuria. differential infection such as uti, pneumonia, shunt malfunction. electrolyte abnormality. plan ct head, cxr, ua labs reassess. <Chely Russell - Last Filed: 01/31/17 16:23> - Medical Decision Making 01/31/17 16:39 EXAM: Head CT INTERPRETED BY: Dr. Rivera REVIEWED BY: Dr. Russell IMPRESSION: 1. No significant interval change from 01/20/[address] Unchanged position of the right parietal approach FLIGHT ENGINEER shunt catheter. Essentially unchanged size of the ventricles since 01/20/2017. Please correlate clinically. 2. Small volume of hemorrhage in the occipital horns of both lateral ventricles is essentially unchanged. No new hemorrhage since 01/20/2017. No mass effect or midline shift. 3. Generalized age-related volume loss with at least moderate microvascular ischemic changes and chronic left cerebellar lacunar infarct, unchanged. EXAM: CXR INTERPRETED BY: REVIEWED BY: Dr. Russell IMPRESSION: Imaging reveals a weak inspiratory effort with prominent mediastinum , double lead pacemaker and tracheal deviation to the right from a prominent knob. The angles are sharp and the soft tissues are intact. There is a left base nodule similar to that seen on 01/16/2017. No acute pathology. Documentation prepared by Camacho Estrada, acting as director medical surgical for Chely Russell MD. <Camacho Estrada - Last Filed: 01/31/17 16:40> Heart Score/ECG Review #1 General ECG Interpretation: Normal Rate (71), No acute ischemic changes Compared to previous ECG there are: No significant change (comparison 01/20/17. paced.) <Chely Russell - Last Filed: 01/31/17 16:23>
[2017-01-31 18:01] VITALS: BMI 25.2
[2017-01-31] MEDS ORDERED: FLU VACCINE QUAD 60 MCG/0.5 ML (MDV 17-18) IM ONE (19:00)
[2017-01-31] MEDS: DABIGATRAN ETEXILATE MESYLATE 75 MG CAPSULE PO SCH (22:36)
[2017-01-31] MEDS: ATORVASTATIN CA 10 MG TABLET (FP) PO SCH (22:36)
[2017-01-31] MEDS: INSULIN DETEMIR 100 UNITS/ML MDV SQ SCH (22:37)
[2017-02-01] MEDS: CARBIDOPA/LEVODOPA 25/100 TABLET (FP) PO SCH ×3 (06:13→21:26)
[2017-02-01 07:59] LABS: BASOPHIL 0.7 % (0-2.0); MCHC 33.5 g/dl (32.0-35.9); MEAN CELL VOLUME 92.5 fl (80-96); MEAN PLT VOLUME 9.7 fl (7.5-11.1); NEUTROPHILS 72.2 % (42.8-82.8); PLATELET COUNT 209 K/MM3 (134-434); RDW 13.6 % (11.9-15.9); WHITE BLOOD COUNT 11.6 K/mm3 (4.0-10.0)
[2017-02-01 08:40] LABS: ALBUMIN 2.8 g/dl (3.4-5.0); ANION GAP 6 (8-16); CALCIUM 8.6 mg/dL (8.5-10.1); CO2 32 mmol/L (21-32); GLUCOSE,RANDOM 239 mg/dL (74-106); SGOT/AST 17 U/L (15-37); SGPT/ALT 8 U/L (12-78)
[2017-02-01 08:41] LABS: ALK PHOS 75 U/L (45-117); BILIRUBIN,TOTAL 0.7 mg/dL (0.2-1.0); CREATININE 0.7 mg/dL (0.7-1.3)
--- NOTE | 2017-02-01 09:46 | EKG ---
Test Reason : Blood Pressure : / mmHG Vent. Rate : 071 BPM Atrial Rate : 071 BPM P-R Int : 212 ms QRS Dur : 160 ms QT Int : 452 ms P-R-T Axes : 053 -83 087 degrees QTc Int : 491 ms Atrial-sensed ventricular-paced rhythm with prolonged AV conduction ABNORMAL ECG Confirmed by MD SENIA, KACEY ([id number]) on 02/01/2017 9:46:36 AM Referred By: Confirmed By:KACEY CONN MD
--- NOTE | 2017-02-01 11:10 | HP ---
Admitting History and Physical - Primary Care Physician PCP: Paolo Card - Admission Chief Complaint: Hematuria History Source: Medical Record Limitations to Obtaining History: Clinical Condition - Past Medical History MANAGER STERILE: Yes: Dementia, Syncope Cardiovascular: Yes: AFIB, HTN, Hyperlipdemia Musculoskeletal: Yes: Osteoarthritis Endocrine: Yes: Diabetes Mellitus - Past Surgical History Past Surgical History: Yes: Joint Replacement, Permanent Pacemaker - Advance Directives Advance Directives: Yes: DNR - Smoking History Smoking history: Never smoked Have you smoked in the past 12 months: No Aproximately how many cigarettes per day: 0 - Alcohol/Substance Use Hx Alcohol Use: No History of Substance Use: reports: None - Social History ADL: Family Assistance History of Recent Travel: No Home Medications - Allergies Allergies/Adverse Reactions: Allergies Allergy/AdvReac Type Severity Reaction Status Date / Time No Known Allergies Allergy Verified 01/06/17 13:11 - Home Medications Home Medications: Ambulatory Orders Acetaminophen [Tylenol] 325 mg PO BID 01/20/17 Atorvastatin Ca [Lipitor] 10 mg PO HS 01/20/17 Carbidopa/Levodopa 25/100 [Sinemet 25/100 -] 1 each PO TID 01/20/17 Dabigatran Etexilate Mesylate [Pradaxa -] 75 mg PO BID 01/20/17 Docusate Sodium [Colace -] 100 mg PO BID 01/20/17 Insulin (Levemir) [Levemir Flexpen -] 10 units SQ HS 01/20/17 Insulin Lispro [Humalog] 0 unit SQ ACLD 01/20/17 Metoprolol Succinate [Toprol Xl -] 25 mg PO DAILY 01/20/17 Polyethylene Glycol 3350 [Miralax (For Daily Use) -] 17 gm PO DAILY 01/20/17 Review of Systems - Review of Systems Constitutional: reports: Weakness Eyes: reports: Other (blind from diabetic retinopathy) HENT: reports: No Symptoms Neck: reports: No Symptoms Cardiovascular: reports: No Symptoms Respiratory: reports: No Symptoms Gastrointestinal: reports: No Symptoms Genitourinary: reports: No Symptoms Integumentary: reports: No Symptoms Neurological: reports: Confusion, Weakness Endocrine: reports: No Symptoms Psychiatric: reports: Other (Does not respond to questions) Physical Examination Vital Signs: Vital Signs Temperature 98.8 F 02/01/17 06:00 Pulse Rate 88 02/01/17 06:00 Respiratory Rate 18 02/01/17 06:00 Blood Pressure 147/68 02/01/17 06:00 O2 Sat by Pulse Oximetry (%) 98 01/31/17 21:00 Constitutional: Yes: Calm Eyes: Yes: Other (opens his eyes) HENT: Yes: WNL Neck: Yes: Supple Cardiovascular: Yes: Pulse Irregular, S1, S2 Respiratory: Yes: Regular, CTA Bilaterally Gastrointestinal: Yes: Soft Renal/: Yes: Incontinence Musculoskeletal: Yes: WNL Extremities: Yes: WNL Edema: No Integumentary: Yes: WNL Neurological: Yes: Confusion, Cran Nerves II-XII Intact, Dysarthria ...Motor Strength: WNL Psychiatric: Yes: Other (awake but does not respond, moves all extremities) Labs: CBC, BMP 02/01/17 07:00 02/01/17 07:00 Imaging - Results Cat Scan: Report Reviewed, Image Reviewed EKG: Report Reviewed, Image Reviewed Problem List - Problems (1) UTI (urinary tract infection) Assessment/Plan: Was found to have hematuria in the [place] [facility], culture pending, Started on Rocephin and Levaquin pending C/S Code(s): N39.0 - URINARY TRACT INFECTION, SITE NOT SPECIFIED Qualifiers: Urinary tract infection type: acute cystitis Hematuria presence: with hematuria Qualified Code(s): N30.01 - Acute cystitis with hematuria (2) Acute spontaneous intraventricular hemorrhage due to cerebral aneurysm Assessment/Plan: CT scan does not show any change in the hemorrhage or hydrocephalus Code(s): I61.5 - NONTRAUMATIC INTRACEREBRAL HEMORRHAGE, INTRAVENTRICULAR I67.1 - CEREBRAL ANEURYSM, NONRUPTURED (3) Brain bleed Code(s): I61.9 - NONTRAUMATIC INTRACEREBRAL HEMORRHAGE, UNSPECIFIED (4) Dementia Code(s): F03.90 - UNSPECIFIED DEMENTIA WITHOUT BEHAVIORAL DISTURBANCE Qualifiers: Dementia type: unspecified type Dementia behavioral disturbance: without behavioral disturbance Qualified Code(s): F03.90 - Unspecified dementia without behavioral disturbance (5) Diabetes 1.5, managed as type 1 Assessment/Plan: PO intake is not reliable , will cont Levemir low dose with BGM monitoring Code(s): E10.9 - TYPE 1 DIABETES MELLITUS WITHOUT COMPLICATIONS Assessment/Plan UTI, AFIB AMS DM s/P TREASURY MANAGEMENT SALES CONSULTANT shunt. Assess: Darrian continue present antibiotic , and await cultures.
[2017-02-01] MEDS ORDERED: PT OWN MED DRAWER 7, Y5N ONE (11:30)
[2017-02-01] MEDS ORDERED: cefTRIAXone SODIUM 1 GM VIAL ONE (11:31)
[2017-02-01] MEDS ORDERED: DEXTROSE 5%-WATER 100 ML IVPB ONE (11:31)
[2017-02-01] MEDS: CEFTRIAXONE 1 GM in DEXTROSE 5%-WATER 100 ML IVPB SCH (11:33)
[2017-02-01] MEDS: METOPROLOL SUCCINATE 25 MG TAB.SR.24H (FP) PO SCH (11:34)
[2017-02-01] MEDS: POLYETHYLENE GLYCOL 3350 119 GM BTL PO SCH (11:34)
[2017-02-01] MEDS: DABIGATRAN ETEXILATE MESYLATE 75 MG CAPSULE PO SCH ×2 (11:34→21:27)
[2017-02-01] MEDS: LEVOFLOXACIN 500 MG IVPB 100 ML IVPB SCH (12:23)
[2017-02-01] MEDS: ATORVASTATIN CA 10 MG TABLET (FP) PO SCH (21:26)
[2017-02-01] MEDS: INSULIN DETEMIR 100 UNITS/ML MDV SQ SCH (21:26)
[2017-02-02] MEDS: CARBIDOPA/LEVODOPA 25/100 TABLET (FP) PO SCH ×3 (05:46→21:27)
[2017-02-02] MEDS ORDERED: PT OWN MED DRAWER 7, Y5N ONE (10:50)
[2017-02-02] MEDS ORDERED: DEXTROSE 5%-WATER 100 ML IVPB ONE (10:50)
[2017-02-02] MEDS ORDERED: cefTRIAXone SODIUM 1 GM VIAL ONE (10:50)
[2017-02-02] MEDS: CEFTRIAXONE 1 GM in DEXTROSE 5%-WATER 100 ML IVPB SCH (10:54)
[2017-02-02] MEDS: DABIGATRAN ETEXILATE MESYLATE 75 MG CAPSULE PO SCH ×2 (10:55→21:27)
[2017-02-02] MEDS: METOPROLOL SUCCINATE 25 MG TAB.SR.24H (FP) PO SCH (10:55)
[2017-02-02] MEDS: POLYETHYLENE GLYCOL 3350 119 GM BTL PO SCH (10:56)
[2017-02-02] MEDS: LEVOFLOXACIN 500 MG IVPB 100 ML IVPB SCH (11:55)
[2017-02-02] MEDS: POTASSIUM CHLORIDE 10 MEQ in SODIUM CHLORIDE 0.45% 1,000 ML IVPB SCH (14:28)
[2017-02-02] MEDS: INSULIN DETEMIR 100 UNITS/ML MDV SQ SCH (21:26)
[2017-02-02] MEDS: ATORVASTATIN CA 10 MG TABLET (FP) PO SCH (21:27)
--- NOTE | 2017-02-02 23:51 | PN ---
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, Physician History of Present Illness: Admitted with UTI and unreliable PO intake. Urine culture showed Proteus mirabilis which is sensitive to Levaquin. As per nursing he spits out all the food - Current Medication List Current Medications: Active Medications Atorvastatin Calcium (Lipitor -) 10 mg PO HS [facility] Last Admin: 02/02/17 21:27 Dose: 10 mg Carbidopa/Levodopa (Sinemet 25/100 -) 1 each PO TID [facility] Last Admin: 02/02/17 21:27 Dose: 1 each Dabigatran (Pradaxa -) 75 mg PO BID [facility] Last Admin: 02/02/17 21:27 Dose: 75 mg Ceftriaxone Sodium 1 gm/ (Dextrose) 100 mls @ 200 mls/hr IVPB DAILY [facility] Last Admin: 02/02/17 10:54 Dose: 200 mls/hr Levofloxacin (Levaquin 500 Mg Premixed Ivpb -) 100 mls @ 100 mls/hr IVPB DAILY [facility] Last Admin: 02/02/17 11:55 Dose: 100 mls/hr Potassium Chloride 10 meq/ (Sodium Chloride) 1,005 mls @ 42 mls/hr IVPB Q24H [facility] Last Admin: 02/02/17 14:28 Dose: 42 mls/hr Insulin Detemir (Levemir Vial) 10 units SQ HS [facility] Last Admin: 02/02/17 21:26 Dose: 10 units Metoprolol Succinate (Toprol Xl -) 25 mg PO DAILY [facility] Last Admin: 02/02/17 10:55 Dose: 25 mg Polyethylene Glycol (Miralax (For Daily Use) -) 17 gm PO DAILY [facility] Last Admin: 02/02/17 10:56 Dose: 17 grams - Objective Vital Signs: Vital Signs Temperature 98.4 F 02/02/17 14:50 Pulse Rate 87 02/02/17 14:50 Respiratory Rate 20 02/02/17 14:50 Blood Pressure 120/71 02/02/17 14:50 O2 Sat by Pulse Oximetry (%) 96 02/02/17 09:00 Constitutional: Yes: Calm Eyes: Yes: Conjunctiva Clear HENT: Yes: WNL Neck: Yes: Supple Cardiovascular: Yes: Pulse Irregular, S1, S2 Respiratory: Yes: Regular, CTA Bilaterally Gastrointestinal: Yes: Normal Bowel Sounds, Soft Genitourinary: Yes: Incontinence Musculoskeletal: Yes: WNL Extremities: Yes: WNL Edema: No Labs: CBC, BMP 02/01/17 07:00 02/01/17 07:00 INR, PTT INR 1.29 (0.82-1.09) H 01/31/17 11:40 Problem List - Problems (1) UTI (urinary tract infection) Code(s): N39.0 - URINARY TRACT INFECTION, SITE NOT SPECIFIED Qualifiers: Urinary tract infection type: acute cystitis Hematuria presence: with hematuria Qualified Code(s): N30.01 - Acute cystitis with hematuria (2) Acute spontaneous intraventricular hemorrhage due to cerebral aneurysm Code(s): I61.5 - NONTRAUMATIC INTRACEREBRAL HEMORRHAGE, INTRAVENTRICULAR I67.1 - CEREBRAL ANEURYSM, NONRUPTURED (3) Brain bleed Code(s): I61.9 - NONTRAUMATIC INTRACEREBRAL HEMORRHAGE, UNSPECIFIED (4) Dementia Code(s): F03.90 - UNSPECIFIED DEMENTIA WITHOUT BEHAVIORAL DISTURBANCE Qualifiers: Dementia type: unspecified type Dementia behavioral disturbance: without behavioral disturbance Qualified Code(s): F03.90 - Unspecified dementia without behavioral disturbance (5) Diabetes 1.5, managed as type 1 Code(s): E10.9 - TYPE 1 DIABETES MELLITUS WITHOUT COMPLICATIONS
[2017-02-03] MEDS: CARBIDOPA/LEVODOPA 25/100 TABLET (FP) PO SCH ×4 (06:11→23:17)
[2017-02-03] MEDS ORDERED: PT OWN MED DRAWER 7, Y5N ONE (10:15)
[2017-02-03] MEDS: LEVOFLOXACIN 500 MG IVPB 100 ML IVPB SCH (10:16)
[2017-02-03] MEDS: DABIGATRAN ETEXILATE MESYLATE 75 MG CAPSULE PO SCH ×4 (10:16→23:17)
[2017-02-03] MEDS: METOPROLOL SUCCINATE 25 MG TAB.SR.24H (FP) PO SCH ×2 (10:16→10:29)
[2017-02-03] MEDS: POLYETHYLENE GLYCOL 3350 119 GM BTL PO SCH ×2 (10:20→10:29)
[2017-02-03] MEDS: POTASSIUM CHLORIDE 10 MEQ in SODIUM CHLORIDE 0.45% 1,000 ML IVPB SCH (12:13)
--- NOTE | 2017-02-03 15:07 | PN ---
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 (short form) - Note 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: Patient seen and examined. Wounds healing well. Patient had 3-5 days of Neurological improvement after last visit to my office when I adjusted his shunt to 1.0 and pumped the shunt several times. Patient slowly lost this benefit over time suggesting that even lower pressure setting is required. After discussions with patient's daughters (Rupal & Tiana) we decided to reduce the pressure setting to the lowest setting (0.5). The valve was interrogated and found to be at 1.0 as expected. Using the programming device, it was adjusted to 0.5 and confirmed again. I also pumped the shunt several times to increase the CSF drainage. Patient with new UTI and diminished appetite which both may contribute to diminished level of consciousness. Will follow patient with care team.
[2017-02-03] MEDS: INSULIN DETEMIR 100 UNITS/ML MDV SQ SCH (22:13)
[2017-02-03] MEDS: ATORVASTATIN CA 10 MG TABLET (FP) PO SCH ×2 (22:13→23:16)
--- NOTE | 2017-02-03 23:25 | PN ---
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, Physician History of Present Illness: Patient seen and examined. As per nursing he continues to spit out food as well as medication .He continues to be alert but without any agitation.Does not follow any commands. Opens his eyes and moves all his extremities. There is no improvement in overall condition - Current Medication List Current Medications: Active Medications Atorvastatin Calcium (Lipitor -) 10 mg PO HS [facility] Last Admin: 02/03/17 22:13 Dose: 10 mg Carbidopa/Levodopa (Sinemet 25/100 -) 1 each PO TID [facility] Last Admin: 02/03/17 22:13 Dose: 1 each Dabigatran (Pradaxa -) 75 mg PO BID [facility] Last Admin: 02/03/17 22:13 Dose: 75 mg Levofloxacin (Levaquin 500 Mg Premixed Ivpb -) 100 mls @ 100 mls/hr IVPB DAILY [facility] Last Admin: 02/03/17 10:16 Dose: 100 mls/hr Potassium Chloride 10 meq/ (Sodium Chloride) 1,005 mls @ 42 mls/hr IVPB Q24H [facility] Last Admin: 02/03/17 12:13 Dose: 42 mls/hr Insulin Detemir (Levemir Vial) 10 units SQ HS [facility] Last Admin: 02/03/17 22:13 Dose: 10 units Metoprolol Succinate (Toprol Xl -) 25 mg PO DAILY [facility] Last Admin: 02/03/17 10:29 Dose: Not Given Polyethylene Glycol (Miralax (For Daily Use) -) 17 gm PO DAILY [facility] Last Admin: 02/03/17 10:29 Dose: Not Given - Objective Vital Signs: Vital Signs Temperature 97.0 F L 02/03/17 22:35 Pulse Rate 86 02/03/17 22:35 Respiratory Rate 20 02/03/17 22:35 Blood Pressure 126/70 02/03/17 22:35 O2 Sat by Pulse Oximetry (%) 96 02/03/17 09:00 Constitutional: Yes: No Distress, Calm Eyes: Yes: WNL HENT: Yes: WNL Neck: Yes: Supple Cardiovascular: Yes: Pulse Irregular, S1, S2 Respiratory: Yes: Regular, CTA Bilaterally Gastrointestinal: Yes: Normal Bowel Sounds, Soft Genitourinary: Yes: WNL Musculoskeletal: Yes: WNL Extremities: Yes: WNL Edema: No Peripheral Pulses WNL: No Peripheral Pulses: Left Doralis Pedis: 0, Right Dorsalis Pedis: 0 Integumentary: Yes: WNL Neurological: Yes: Alert, Confusion ...Motor Strength: WNL Psychiatric: Yes: Alert, Oriented Labs: CBC, BMP 02/01/17 07:00 02/01/17 07:00 INR, PTT INR 1.29 (0.82-1.09) H 01/31/17 11:40 Problem List - Problems (1) UTI (urinary tract infection) Assessment/Plan: Being maintaine on IV Levaquin as PO intake unreliable Code(s): N39.0 - URINARY TRACT INFECTION, SITE NOT SPECIFIED Qualifiers: Urinary tract infection type: acute cystitis Hematuria presence: with hematuria Qualified Code(s): N30.01 - Acute cystitis with hematuria (2) Acute spontaneous intraventricular hemorrhage due to cerebral aneurysm Code(s): I61.5 - NONTRAUMATIC INTRACEREBRAL HEMORRHAGE, INTRAVENTRICULAR I67.1 - CEREBRAL ANEURYSM, NONRUPTURED (3) Brain bleed Code(s): I61.9 - NONTRAUMATIC INTRACEREBRAL HEMORRHAGE, UNSPECIFIED (4) Dementia Assessment/Plan: Continues to be confused without any improvement Code(s): F03.90 - UNSPECIFIED DEMENTIA WITHOUT BEHAVIORAL DISTURBANCE Qualifiers: Dementia type: unspecified type Dementia behavioral disturbance: without behavioral disturbance Qualified Code(s): F03.90 - Unspecified dementia without behavioral disturbance (5) Diabetes 1.5, managed as type 1 Code(s): E10.9 - TYPE 1 DIABETES MELLITUS WITHOUT COMPLICATIONS Assessment/Plan UTI with Proteus mirabilis Hydrocephalus with S/P DRIER TENDER shunt Diabetes Dementia s/p intracerebral bleed Ass: has adjusted the pressure to the lowest level and if his condition does not improve, the only alternative is a PEG. I have discussed at length the patient's condition and family is not in agreement about a PEG in which case ellie have to placed at [place] for terminal care.
[2017-02-04] MEDS: CARBIDOPA/LEVODOPA 25/100 TABLET (FP) PO SCH ×3 (06:09→21:37)
[2017-02-04 08:26] LABS: BASOPHIL 0.7 % (0-2.0); EOSINOPHIL 1.5 % (0-4.5); MCH 30.6 pg (25.7-33.7); MEAN CELL VOLUME 92.6 fl (80-96); MEAN PLT VOLUME 9.6 fl (7.5-11.1); NEUTROPHILS 70.7 % (42.8-82.8); PLATELET COUNT 180 K/MM3 (134-434); RDW 14.1 % (11.9-15.9); WHITE BLOOD COUNT 11.7 K/mm3 (4.0-10.0)
[2017-02-04 09:15] LABS: ALBUMIN 2.7 g/dl (3.4-5.0); ALK PHOS 71 U/L (45-117); ANION GAP 9 (8-16); BILIRUBIN,TOTAL 0.5 mg/dL (0.2-1.0); CALCIUM 8.4 mg/dL (8.5-10.1); CO2 30 mmol/L (21-32); CREATININE 0.6 mg/dL (0.7-1.3); GLUCOSE,RANDOM 209 mg/dL (74-106); SGOT/AST 18 U/L (15-37); SGPT/ALT 21 U/L (12-78); TOT PROT 6.3 g/dl (6.4-8.2)
[2017-02-04] MEDS ORDERED: PT OWN MED DRAWER 7, Y5N ONE (10:10)
[2017-02-04] MEDS: LEVOFLOXACIN 500 MG IVPB 100 ML IVPB SCH (10:16)
[2017-02-04] MEDS: METOPROLOL SUCCINATE 25 MG TAB.SR.24H (FP) PO SCH (10:19)
[2017-02-04] MEDS: POLYETHYLENE GLYCOL 3350 119 GM BTL PO SCH (10:19)
[2017-02-04] MEDS: DABIGATRAN ETEXILATE MESYLATE 75 MG CAPSULE PO SCH ×2 (10:19→21:37)
[2017-02-04] MEDS: POTASSIUM CHLORIDE 10 MEQ in SODIUM CHLORIDE 0.45% 1,000 ML IVPB SCH (14:28)
--- NOTE | 2017-02-04 16:22 | PN ---
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 (short form) - Note 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: ^^^^^^^^^^^^^^^^^ cover for Dr Card Current Medications Atorvastatin Calcium (Lipitor -) 10 mg PO HS [facility] Last Admin: 02/03/17 23:16 Dose: Not Given Carbidopa/Levodopa (Sinemet 25/100 -) 1 each PO TID [facility] Last Admin: 02/04/17 14:22 Dose: Not Given Dabigatran (Pradaxa -) 75 mg PO BID [facility] Last Admin: 02/04/17 10:19 Dose: Not Given Levofloxacin (Levaquin 500 Mg Premixed Ivpb -) 100 mls @ 100 mls/hr IVPB DAILY [facility] Last Admin: 02/04/17 10:16 Dose: 100 mls/hr Potassium Chloride 10 meq/ (Sodium Chloride) 1,005 mls @ 42 mls/hr IVPB Q24H [facility] Last Admin: 02/04/17 14:28 Dose: 42 mls/hr Insulin Detemir (Levemir Vial) 10 units SQ HS [facility] Last Admin: 02/03/17 22:13 Dose: 10 units Metoprolol Succinate (Toprol Xl -) 25 mg PO DAILY [facility] Last Admin: 02/04/17 10:19 Dose: Not Given Polyethylene Glycol (Miralax (For Daily Use) -) 17 gm PO DAILY [facility] Last Admin: 02/04/17 10:19 Dose: Not Given Laboratory Results - last 24 hr 02/03/17 02/04/17 02/04/17 22:15 05:50 07:30 WBC 11.7 H RBC 4.28 Hgb 13.1 Hct 39.6 MCV 92.6 MCH 30.6 MCHC 33.0 RDW 14.1 Plt Count 180 MPV 9.6 Neutrophils % 70.7 Lymphocytes % 17.0 Monocytes % 10.1 Eosinophils % 1.5 Basophils % 0.7 Sodium Potassium Chloride Carbon Dioxide Anion Gap BUN Creatinine Creat Clearance w eGFR POC Glucometer 251 206 Random Glucose Calcium Total Bilirubin AST ALT Alkaline Phosphatase Total Protein Albumin 02/04/17 07:30 WBC RBC Hgb Hct MCV MCH MCHC RDW Plt Count MPV Neutrophils % Lymphocytes % Monocytes % Eosinophils % Basophils % Sodium 138 Potassium 3.8 Chloride 99 Carbon Dioxide 30 Anion Gap 9 BUN 25 H Creatinine 0.6 L Creat Clearance w eGFR > 60 POC Glucometer Random Glucose 209 H Calcium 8.4 L Total Bilirubin 0.5 D AST 18 ALT 21 D Alkaline Phosphatase 71 Total Protein 6.3 L Albumin 2.7 L Vital Signs Temperature 98.3 F 02/04/17 14:03 Pulse Rate 86 02/04/17 14:03 Respiratory Rate 15 02/04/17 14:03 Blood Pressure 111/63 02/04/17 14:03 O2 Sat by Pulse Oximetry (%) 96 02/04/17 09:00 CC: non communicative ```````````````````````` skin--pale eyes--midline lungs--distant heart--distant irreg abd--soft ext--no edema neuro--awake but catatonic-like;non responsive; does not appear to be aware; does not follow commands; open eyes; tone not flaccid; no tremors ```````````````````````````` Summ > fail thrive--not interactive, not eating, unable to make needs known; 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
[2017-02-04] MEDS: ATORVASTATIN CA 10 MG TABLET (FP) PO SCH (21:36)
[2017-02-04] MEDS: INSULIN DETEMIR 100 UNITS/ML MDV SQ SCH (21:36)
[2017-02-05] MEDS: CARBIDOPA/LEVODOPA 25/100 TABLET (FP) PO SCH ×3 (05:48→21:11)
[2017-02-05] MEDS ORDERED: PT OWN MED DRAWER 7, Y5N ONE ×2 (11:00→20:38)
[2017-02-05] MEDS: LEVOFLOXACIN 500 MG IVPB 100 ML IVPB SCH (11:03)
[2017-02-05] MEDS: DABIGATRAN ETEXILATE MESYLATE 75 MG CAPSULE PO SCH ×2 (11:13→21:11)
[2017-02-05] MEDS: METOPROLOL SUCCINATE 25 MG TAB.SR.24H (FP) PO SCH (11:14)
[2017-02-05] MEDS: POLYETHYLENE GLYCOL 3350 119 GM BTL PO SCH (11:14)
[2017-02-05] MEDS: POTASSIUM CHLORIDE 10 MEQ in SODIUM CHLORIDE 0.45% 1,000 ML IVPB SCH (13:18)
--- NOTE | 2017-02-05 17:33 | PN ---
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 (short form) - Note 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: Patient seen today and does not appear to have any improvement in his mentation after the last shunt valve reprogramming and shunt pumping. Patient continues to have diminished PO intake and is recovering from his UTI, both of which may be contributing to his failure to thrive. No further Neurosurgical management of his shunt appears necessary.
--- NOTE | 2017-02-05 19:51 | PN ---
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, Physician History of Present Illness: Continues to spit out all his meds and almost no PO intake. Family has agreed to send pt to [facility] for terminal care. Family refuses Tube feeding. - Current Medication List Current Medications: Active Medications Atorvastatin Calcium (Lipitor -) 10 mg PO HS [facility] Last Admin: 02/04/17 21:36 Dose: Not Given Carbidopa/Levodopa (Sinemet 25/100 -) 1 each PO TID [facility] Last Admin: 02/05/17 14:59 Dose: Not Given Dabigatran (Pradaxa -) 75 mg PO BID [facility] Last Admin: 02/05/17 11:13 Dose: Not Given Levofloxacin (Levaquin 500 Mg Premixed Ivpb -) 100 mls @ 100 mls/hr IVPB DAILY [facility] Last Admin: 02/05/17 11:03 Dose: 100 mls/hr Potassium Chloride 10 meq/ (Sodium Chloride) 1,005 mls @ 42 mls/hr IVPB Q24H [facility] Last Admin: 02/05/17 13:18 Dose: 42 mls/hr Insulin Detemir (Levemir Vial) 10 units SQ [facility] Last Admin: 02/04/17 21:36 Dose: 10 units Metoprolol Succinate (Toprol Xl -) 25 mg PO DAILY [facility] Last Admin: 02/05/17 11:14 Dose: Not Given Polyethylene Glycol (Miralax (For Daily Use) -) 17 gm PO DAILY [facility] Last Admin: 02/05/17 11:14 Dose: Not Given - Objective Vital Signs: Vital Signs Temperature 98.3 F 02/05/17 13:45 Pulse Rate 85 02/05/17 13:45 Respiratory Rate 16 02/05/17 13:45 Blood Pressure 127/64 02/05/17 13:45 O2 Sat by Pulse Oximetry (%) 95 02/05/17 09:00 Constitutional: Yes: No Distress, Calm Eyes: Yes: Conjunctiva Clear HENT: Yes: WNL Neck: Yes: Supple Cardiovascular: Yes: Pulse Irregular, S1, S2 Respiratory: Yes: Regular, CTA Bilaterally Gastrointestinal: Yes: Normal Bowel Sounds, Soft Genitourinary: Yes: Incontinence Musculoskeletal: Yes: WNL Extremities: Yes: WNL Edema: No Integumentary: Yes: WNL Neurological: Yes: Confusion, Lethargy Labs: CBC, BMP 02/04/17 07:30 02/04/17 07:30 INR, PTT INR 1.29 (0.82-1.09) H 01/31/17 11:40 Problem List - Problems (1) UTI (urinary tract infection) Assessment/Plan: Receiving IV Levaquin as pt doesn't take any PO meds Code(s): N39.0 - URINARY TRACT INFECTION, SITE NOT SPECIFIED Qualifiers: Urinary tract infection type: acute cystitis Hematuria presence: with hematuria Qualified Code(s): N30.01 - Acute cystitis with hematuria (2) Acute spontaneous intraventricular hemorrhage due to cerebral aneurysm Code(s): I61.5 - NONTRAUMATIC INTRACEREBRAL HEMORRHAGE, INTRAVENTRICULAR I67.1 - CEREBRAL ANEURYSM, NONRUPTURED (3) Brain bleed Code(s): I61.9 - NONTRAUMATIC INTRACEREBRAL HEMORRHAGE, UNSPECIFIED (4) Dementia Assessment/Plan: No agitation Code(s): F03.90 - UNSPECIFIED DEMENTIA WITHOUT BEHAVIORAL DISTURBANCE Qualifiers: Dementia type: unspecified type Dementia behavioral disturbance: without behavioral disturbance Qualified Code(s): F03.90 - Unspecified dementia without behavioral disturbance (5) Diabetes 1.5, managed as type 1 Code(s): E10.9 - TYPE 1 DIABETES MELLITUS WITHOUT COMPLICATIONS Assessment/Plan Awaiting transfer to [facility] for terminal care
[2017-02-05] MEDS: INSULIN DETEMIR 100 UNITS/ML MDV SQ SCH (21:07)
[2017-02-05] MEDS: ATORVASTATIN CA 10 MG TABLET (FP) PO SCH (21:11)
[2017-02-06] MEDS: CARBIDOPA/LEVODOPA 25/100 TABLET (FP) PO SCH ×3 (05:49→21:30)
[2017-02-06] MEDS: LEVOFLOXACIN 500 MG IVPB 100 ML IVPB SCH (09:47)
[2017-02-06] MEDS: METOPROLOL SUCCINATE 25 MG TAB.SR.24H (FP) PO SCH (09:47)
[2017-02-06] MEDS: POLYETHYLENE GLYCOL 3350 119 GM BTL PO SCH (09:47)
[2017-02-06] MEDS: DABIGATRAN ETEXILATE MESYLATE 75 MG CAPSULE PO SCH (09:47)
[2017-02-06] MEDS: POTASSIUM CHLORIDE 10 MEQ in SODIUM CHLORIDE 0.45% 1,000 ML IVPB SCH (11:49)
[2017-02-06] MEDS: DEXTROSE 5%-0.45% SALINE 1,000 ML IV SCH (15:00)
[2017-02-06] MEDS ORDERED: ENOXAPARIN NA (PORCINE) 40 MG/0.4 ML DISP.SYRIN SQ ONE (16:12)
[2017-02-06] MEDS: INSULIN SLIDING SCALE (NOVOLOG) 1 VIAL SQ SCH ×2 (17:09→21:30)
[2017-02-06] MEDS: ENOXAPARIN NA (PORCINE) 40 MG/0.4 ML DISP.SYRIN SQ SCH (17:09)
--- NOTE | 2017-02-06 18:45 | PN ---
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 (short form) - Note 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: %%%%%%%%%%%%%%%%%%%% cover for Dr Card Current Medications Atorvastatin Calcium (Lipitor -) 10 mg PO HS [facility] Last Admin: 02/05/17 21:11 Dose: Not Given Carbidopa/Levodopa (Sinemet 25/100 -) 1 each PO TID [facility] Last Admin: 02/06/17 14:54 Dose: Not Given Enoxaparin Sodium (Lovenox -) 40 mg SQ DAILY [facility] Last Admin: 02/06/17 17:09 Dose: 40 mg Dextrose/Sodium Chloride (D5-1/2ns -) 1,000 mls @ 75 mls/hr IV ASDIR [facility] Last Admin: 02/06/17 15:00 Dose: 75 mls/hr Fat Emulsion Intravenous (Intralipid -) 500 mls @ 41.667 mls/hr IV DAILY@2200 [facility] Insulin Aspart (Novolog Vial Sliding Scale -) 1 vial SQ ACHS [facility] PRN Reason: Protocol Last Admin: 02/06/17 17:09 Dose: 4 units Metoprolol Succinate (Toprol Xl -) 25 mg PO DAILY [facility] Last Admin: 02/06/17 09:47 Dose: Not Given Polyethylene Glycol (Miralax (For Daily Use) -) 17 gm PO DAILY [facility] Last Admin: 02/06/17 09:47 Dose: Not Given Vital Signs Temperature 98.4 F 02/06/17 14:53 Pulse Rate 84 02/06/17 14:53 Respiratory Rate 18 02/06/17 14:53 Blood Pressure 115/69 02/06/17 14:53 O2 Sat by Pulse Oximetry (%) 95 02/05/17 20:19 CC: non communicative ```````````````````````` skin--pale eyes--midline lungs--distant heart--distant irreg abd--soft ext--no edema neuro--awake but catatonic-like;non verbal, obtunded; does not appear to be aware; does not follow commands; open eyes; tone not flaccid; no tremors, and is able to move limbs but without much purpose ```````````````````````````` Summ > fail thrive--not interactive, not eating, unable to make needs known; 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 be 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; to date no feeding interventions accepted by family, but now prefer IV emulsions along w/ dextrose to prevent dehydration PLAN so far is for terminal placement; will recheck chemistry > UTI--was Tx w/ levaquin > DM--not eating; is now on Insulin both Levimir & coverage scale > Hydrocephalous--which required shunt to relieve pressure; however, no improvement in MS since adjustment made (see NS note), and no further intervention is planned > ATF--BB and a'c ordered but not taking PO ````````````````````````````````````````````````` discussed briefly w/ several family members (who are not decision makers) present; and reminded them of the unfavorable prognosis with or without further interventions ~~~~~~~~~~~~~~~~~~~~~~` Dr Brewster...........for Dr Card
[2017-02-06] MEDS: ATORVASTATIN CA 10 MG TABLET (FP) PO SCH (21:30)
[2017-02-06] MEDS ORDERED: FAT EMULSIONS 20% 500 ML PREMIX INFUS.BAG IV SCH (22:00)
[2017-02-06] MEDS ORDERED: FAT EMULSIONS 500 ML IV SCH (22:00)
[2017-02-07] MEDS: DEXTROSE 5%-0.45% SALINE 1,000 ML IV SCH (01:52)
[2017-02-07 06:00] VITALS: PULSE 84
[2017-02-07] MEDS: CARBIDOPA/LEVODOPA 25/100 TABLET (FP) PO SCH (06:03)
[2017-02-07] MEDS: INSULIN SLIDING SCALE (NOVOLOG) 1 VIAL SQ SCH (06:25)
[2017-02-07] MEDS ORDERED: INSULIN (NOVOLOG) ASPART 100 UNITS/ML 10ML VIAL ONE (06:31)
[2017-02-07 09:17] VITALS: BP 118/62; TEMP 97.6
[2017-02-07 09:27] LABS: MCH 31.6 pg (25.7-33.7); MCHC 34.5 g/dl (32.0-35.9); MEAN CELL VOLUME 91.4 fl (80-96); MEAN PLT VOLUME 9.9 fl (7.5-11.1); PLATELET COUNT 164 K/MM3 (134-434); RDW 14.2 % (11.9-15.9); WHITE BLOOD COUNT 11.1 K/mm3 (4.0-10.0)
--- NOTE | 2017-02-07 09:35 | DS ---
Physical Examination Vital Signs: Vital Signs Temperature 97.6 F 02/07/17 09:00 Pulse Rate 84 02/07/17 09:00 Respiratory Rate 20 02/07/17 09:00 Blood Pressure 118/62 02/07/17 09:00 O2 Sat by Pulse Oximetry (%) 96 02/06/17 21:00 Findings/Remarks: Patient seen and examined. Appears more alert and more responsive. Constitutional: Yes: No Distress, Calm Eyes: Yes: Other (keeps eyes closed at all times) HENT: Yes: WNL Neck: Yes: Supple Cardiovascular: Yes: Pulse Irregular, S1, S2 Respiratory: Yes: Regular, CTA Bilaterally Gastrointestinal: Yes: Normal Bowel Sounds, Soft Renal/: Yes: Incontinence Musculoskeletal: Yes: WNL Extremities: Yes: WNL Edema: No Peripheral Pulses WNL: No Peripheral Pulses: Left Doralis Pedis: 0, Right Dorsalis Pedis: 0 Integumentary: Yes: WNL Neurological: Yes: Alert, Dysarthria ...Motor Strength: WNL Discharge Summary Reason For Visit: UTI,TYPE 2 DM WITH HYPERGLYCEMIA Current Active Problems Hyperglycemia due to type 2 diabetes mellitus (Acute) UTI (urinary tract infection) (Acute) AFIB Ventriculoperitoneal shun for hydrocephalus Intracerebral bleed. Permanent pacemaker Sick sinus syndrome Dementia Depression. Malnutrition S/P right hip replacement Procedures: Principal: CT scan brain. Adjusatment of pressure of [employer] shunt Hospital Course: He is a known case of s/p placement of [employer] shunt for hydrocephalus s/p intracerebral bleed with accumulation of small amt of blood in the ventricle.Initially presented with change in mental status which showed improvement after placement of the [employer] shunt. He was able to articulate in Latvian some words but his PO intake was very small. He was transferred to SNF but developed hematuria and he was readmitted to the hospital and was treated with IV Levaquin for Proteus mirabilis. His PO intake deteriorated again and he was spitting out his meds. He had been on Pradaxa then switched to Lovenox sc due to AFIB. As per family he has uttered some words saying he does not want to eat which brings into play some element of depression and may have to be on antidepressant but as family refuses tube feeding it's difficult to administer same and may to be on it mcfp to show any benefit. He was kept on hydration IV and lately was also given D5W/0.45 NS and given IV Liposyn. His BGM were checked every six hours with Reg Insulin coverage. He is being transferred to [facility] as he refuses to take PO intake but there is a possibility he may change and start eating again Condition: Guarded - Instructions Referrals: Santosh Gonsalez MD [Primary Care Provider] - Disposition: TRANSFER ACUTE CARE/OTHER HOSP - Home Medications Comprehensive Discharge Medication List: Ambulatory Orders Atorvastatin Ca [Lipitor] 10 mg PO HS 01/20/17 Carbidopa/Levodopa 25/100 [Sinemet 25/100 -] 1 each PO TID 01/20/17 Docusate Sodium [Colace -] 100 mg PO BID 01/20/17 Metoprolol Succinate [Toprol XL -] 25 mg PO DAILY 01/20/17 Polyethylene Glycol 3350 [Miralax 119 gm Btl -] 17 gm PO DAILY 01/20/17
[2017-02-07 10:18] LABS: ALBUMIN 2.3 g/dl (3.4-5.0); ALK PHOS 67 U/L (45-117); ANION GAP 11 (8-16); BILIRUBIN,TOTAL 0.5 mg/dL (0.2-1.0); CALCIUM 7.6 mg/dL (8.5-10.1); CO2 24 mmol/L (21-32); CREATININE 0.5 mg/dL (0.7-1.3); GLUCOSE,RANDOM 239 mg/dL (74-106); SGOT/AST 20 U/L (15-37); SGPT/ALT 20 U/L (12-78); THYROID STIMULATING HORMONE 1.84 uIU/ml (0.358-3.74); TOT PROT 5.9 g/dl (6.4-8.2)
[2017-02-07] MEDS: POLYETHYLENE GLYCOL 3350 119 GM BTL PO SCH (10:21)
[2017-02-07] MEDS: ENOXAPARIN NA (PORCINE) 40 MG/0.4 ML DISP.SYRIN SQ SCH (10:21)
[2017-02-07] MEDS: METOPROLOL SUCCINATE 25 MG TAB.SR.24H (FP) PO SCH (10:22)
== END 2017-02-07 12:14 | disposition hospice, inpatient (51) | DRG 689 ==
LOC: JER 10:52 → JERBED 15:38 → J6S 16:55
PROVIDERS: ADMIT Internal Medicine Hematology & Oncology; ATTEND Internal Medicine Hematology & Oncology
DX: N39.0 Urinary tract infection, site not specified (principal); I61.9 Nontraumatic intracerebral hemorrhage, unspecified; E46 Unspecified protein-calorie malnutrition; G91.9 Hydrocephalus, unspecified; E11.65 Type 2 diabetes mellitus with hyperglycemia; Z95.0 Presence of cardiac pacemaker; F03.90 Unspecified dementia, unspecified severity, without behavioral disturbance, psychotic disturbance, mood disturbance, and anxiety; F32.9 Major depressive disorder, single episode, unspecified; Z68.25 Body mass index [BMI] 25.0-25.9, adult; R62.7 Adult failure to thrive; I48.91 Unspecified atrial fibrillation; I10 Essential (primary) hypertension; E78.5 Hyperlipidemia, unspecified; B96.4 Proteus (mirabilis) (morganii) as the cause of diseases classified elsewhere
CPT/HCPCS: 36415; 70450-TC; 71010-TC; 80053; 81003; 81015; 82009; 82140; 83735; 83880; 84100; 84443; 84484; 85025; 85027; 85610; 87040; 87086; 87186; 90688; 93005; 93010; 99283-25; G0008